=== PATIENT | male | born 1935 | race Caucasian/White ===

== ENCOUNTER 2018-01-27 15:30 | Emergency (ER) | payer MEDICARE, SELFPAY ==
[2018-01-27] VITALS (38 sets, daily range): BP systolic 124–192; BP diastolic 62–83; PULSE 56–86; RESP 11–92; TEMP 36.8–37.1; O2SAT 91–98
[2018-01-27 16:31] LABS: Abs Immature Grans 0.01 k/cumm (0.0-0.09); Absolute Basophil Count 0.01 k/cumm (0.0-0.2); Absolute Eosinophil Count 0.16 k/cumm (0.0-0.7); Absolute Lymphocyte Count 1.25 k/cumm (1.2-3.4); Absolute Monocyte Count 0.83 k/cumm (0.11-0.7); Absolute Neutrophil Count 4.03 k/cumm (1.2-6.7); Basophils % 0.2; Eosinophils % 2.5; HCT 45.8 % (40.0-50.0); HGB 15.1 g/dL (13.5-17.5); Immature Grans % 0.2; Lymphocytes % 19.9; Mean Corpuscular Hemoglobin 30.6 pg (27.0-33.0); Mean Corpuscular Volume 92.7 fL (80-95); Mean Platelet Volume 11.4 fL (8.0-11.0); Monocytes % 13.2; Platelet Count 162 x1000/uL (130-400); RBC 4.94 m/cumm (4.50-6.00); RBC Distribution Width 12.7 % (11.8-14.1); White Blood Cell Count 6.29 k/cumm (4.4-10.8)
[2018-01-27 16:47] LABS: ALT 30 U/L (12-78); AST 23 U/L (15-37); Albumin 3.5 g/dL (3.4-5.0); Alkaline Phosphatase 84 U/L (46-116); Anion Gap 6.7 mmol/L (3-11); BUN 26 mg/dL (7-18); Bilirubin, Direct 0.09 mg/dL (0.00-0.20); Bilirubin, Total 0.4 mg/dL (0.2-1.0); CO2 30.3 mmol/L (21.0-32.0); CREATININE 1.32 mg/dL (0.70-1.30); Calcium 9.6 mg/dL (8.5-10.1); Chloride 105 mmol/L (98-107); Estimated GFR 52.06 (mL/min/1.73m2); Glucose 92 mg/dL (70-100); Magnesium 2.1 mg/dL (1.8-2.4); Potassium 3.9 mmol/L (3.5-5.1); Sodium 142 mmol/L (136-145); TSH (W/Ref FT4) 1.67 uIU/mL (0.358-3.74); Total Protein 6.9 g/dL (6.4-8.2); Troponin I 0.02 ng/mL (0.00-0.06)
--- NOTE | 2018-01-27 16:57 | W.ED.GENAD ---
Discharge Plan Disposition Patient Disposition: HOME Discharge Details Chief Complaint: AMS/LOC Clinical Impression: Acute confusion, Ambulatory dysfunction, Elevated blood pressure reading Primary Care Provider: Chau Arshad ED Provider: González Rosenthal Home Meds and New Rx's Prescriptions: Continue amoxicillin 500 mg Capsule See Label Instructions .ROUTE .COMPLEX RF: 0 aspirin 81 mg Tablet,Delayed Release (Dr/Ec) 81 mg PO DAILY RF: 0 New Chapter 5lx 1 tab PO DAILY RF: 0 Prostate Advantage 1 tab PO DAILY RF: 0 atorvastatin 20 mg Tablet 20 mg PO DAILY RF: 0 polyethylene glycol 3350 [Miralax] 17 gram Powder In Packet See Label Instructions .ROUTE .COMPLEX RF: 0 sennosides-docusate sodium [Senna with Docusate Sodium] 8.6-50 mg Tablet 1 tab PO DAILY RF: 0 triamcinolone acetonide 0.1 % Cream 1 applic TOPICAL BID RF: 0 fluticasone 50 mcg/actuation [place],Suspension 1 spray INTRANASAL DAILY RF: 0 clotrimazole 1 % Cream 1 applic TOPICAL BID RF: 0 docusate sodium 100 mg Tablet 100 mg PO DAILY RF: 0 trospium 20 mg Tablet 20 mg PO DAILY RF: 0 solifenacin [Vesicare] 5 mg Tablet 5 mg PO DAILY RF: 0 Lactobacillus acidophilus [Probiotic Acidophilus] 1.5 mg (250 million cell) Capsule 1 tab PO PRN PRNRF: 0 New Chapter Blood Pressure 1 tab PO DAILY RF: 0 Discharge Instructions Instructions: Hypertension (ED) Additional Instructions: Please rest over the next few days. Please follow-up with your primary care physician tomorrow. Call the office. Be sure to mention your elevated blood pressure today. You may need changes in your medication regimen. Please follow-up with neurology. Call for next available appointment. Return to the ER for any worsening or new concerning symptoms. 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 ECG reviewed and interpreted by me: Normal sinus rhythm 68 bpm, normal axis, no STEMI, nondiagnostic. Patient does have h/o CVA. Consider TIA. Will CT head. Consider UTI. Will check UA. 19:20 --CT head interpreted by radiology: No acute intracranial abnormality. Moderate diffuse heterogenicity of the white matter attenuation consistent with chronic white matter ischemic change old left basal ganglia and left periventricular white matter infarcts - new since prior study 05/03/17. Patient reassessed and remained stable and asymptomatic. Requesting discharge. Patient ambulated briskly about the ED with walker. Patient has a walker without wheels at home. I think he would benefit from a walker with wheels to better ambulate. He is quite comfortable ambulating with his walker. Patient did have elevated BP here. I advised him to follow-up with PCP regarding this tomorrow. Will refer patient to neurology for follow-up. HPI General Mode of arrival: ambulatory. Date/Time Provider Initiated Documentation: 01/27/18 15:46. Limitations to Documentation: no limitations. Information obtained by: patient. HPI Narrative: 82-year-old male with history of CVA, presents with his from primary care physician office with chief complaint of confusion. Patient notes that he has had 3 episodes since yesterday evening where he is confused and has difficulty ambulating. He specifically has a shuffling gait and seems tipsy per . Episodes are severe and last minutes before resolving. He denies associated headache or chest pain. Related Data Home Medications Medication Instructions Recorded Confirmed Lactobacillus acidophilus 1 tab PO PRN PRN 01/27/18 01/27/18 [Probiotic Acidophilus] New Chapter 5lx 1 tab PO DAILY 01/27/18 New Chapter Blood Pressure 1 tab PO DAILY 01/27/18 01/27/18 Prostate Advantage 1 tab PO DAILY 01/27/18 01/27/18 amoxicillin See Label Instructions .ROUTE 01/27/18 01/27/18 .COMPLEX aspirin 81 mg PO DAILY 01/27/18 01/27/18 atorvastatin 20 mg PO DAILY 01/27/18 01/27/18 clotrimazole 1 applic TOPICAL BID 01/27/18 01/27/18 docusate sodium 100 mg PO DAILY 01/27/18 01/27/18 fluticasone 1 spray INTRANASAL DAILY 01/27/18 01/27/18 polyethylene glycol 3350 [Miralax] See Label Instructions .ROUTE 01/27/18 01/27/18 .COMPLEX sennosides-docusate sodium [Senna 1 tab PO DAILY 01/27/18 01/27/18 with Docusate Sodium] solifenacin [Vesicare] 5 mg PO DAILY 01/27/18 01/27/18 triamcinolone acetonide 1 applic TOPICAL BID 01/27/18 01/27/18 trospium 20 mg PO DAILY 01/27/18 01/27/18 Allergies Allergy/AdvReac Type Severity Reaction Status Date / Time clindamycin AdvReac Severe Unverified 01/27/18 15:40 General Stated Complaint: AMS/LOC DOUGIE: 2 Review of Systems Review of Systems All systems reviewed & are unremarkable except as noted in HPI and below Cardiovascular Denies chest pain and Denies dyspnea Respiratory Denies cough and Denies dyspnea Gastrointestinal Denies abdominal pain PFSH Medical History CVA (cerebral vascular accident) (Chronic) Social History Smoking/Tobacco Use Status: Never Surgical History Excision, Lesion (02/27/16) Exam Const General: cooperative and no acute distress HENMT Head: normocephalic and atraumatic Mouth: moist mucous membranes Eyes Conjunctivae: normal conjunctivae Sclera: normal sclerae EOM: EOM intact bilaterally Neck Neck: trachea midline Resp Auscultation: clear to auscultation bilaterally, no rales, no rhonchi and no wheezes Cardio Jugular venous pressure: no JVD Rate: regular rate and not tachycardic Rhythm: regular rhythm GI Palpation: soft, not firm, no guarding, no masses, not rigid and nontender Skin General skin exam: no rashes or lesions noted Neuro General: alert, awake, oriented x3 and tone normal Cranial Nerves: CN's II-XI intact bilaterally Speech: speech normal Motor: muscle tone normal throughout and strength 5/5 throughout Sensory Exam: no sensory deficits noted Coordination: [id number] test normal Extrem General: no edema Psych Appearance: grossly normal Mental Status: mental status grossly normal Speech and Movement: speech and movement normal Course Vital Signs Temperature 37.1 C 01/27/18 15:35 Pulse 68 01/27/18 15:35 Respiratory Rate 14 01/27/18 15:35 Blood Pressure 151/62 H 01/27/18 15:35 Pulse Oximetry 98 01/27/18 15:35 Temperature 37.1 C 01/27/18 15:35 Temperature Source Skin 01/27/18 15:35 Pulse 68 01/27/18 15:35 Respiratory Rate 14 01/27/18 15:35 Respiratory Effort 01/27/18 16:30 Blood Pressure 151/62 H 01/27/18 15:35 Pulse Oximetry 98 01/27/18 15:35 Oxygen Delivery Method Room Air 01/27/18 15:35 Oxygen Flow Rate 0 01/27/18 15:35 Pain Level 0 01/27/18 15:35 Lab/Test Results Lab/Test Results: Laboratory Tests Range/Units 01/27/18 01/27/18 15:45 15:45 WBC (4.4-10.8) k/cumm 6.29 RBC (4.50-6.00) m/cumm 4.94 Hgb (13.5-17.5) g/dL 15.1 Hct (40.0-50.0) % 45.8 MCV (80-95) fL 92.7 MCH (27.0-33.0) pg 30.6 MCHC (32.0-36.0) g/dL 33.0 RDW (11.8-14.1) % 12.7 Plt Count (130-400) x1000/uL 162 MPV (8.0-11.0) fL 11.4 H Immature Gran % 0.2 Neutrophils % 64.0 Lymphocytes % 19.9 Monocytes % 13.2 Eosinophils % 2.5 Basophils % 0.2 Absolute Neutrophils (1.2-6.7) k/cumm 4.03 Absolute Lymphocytes (1.2-3.4) k/cumm 1.25 Absolute Monocytes (0.11-0.7) k/cumm 0.83 H Absolute Eosinophils (0.0-0.7) k/cumm 0.16 Absolute Basophils (0.0-0.2) k/cumm 0.01 Sodium (136-145) mmol/L 142 Potassium (3.5-5.1) mmol/L 3.9 Chloride (98-107) mmol/L 105 Carbon Dioxide (21.0-32.0) mmol/L 30.3 Anion Gap (3-11) mmol/L 6.7 BUN (7-18) mg/dL 26 H Creatinine (0.70-1.30) mg/dL 1.32 H Estimated GFR/1.73 m2 (mL/min/1.73m2) 52.06 Glucose (70-100) mg/dL 92 Calcium (8.5-10.1) mg/dL 9.6 Magnesium (1.8-2.4) mg/dL 2.1 Total Bilirubin (0.2-1.0) mg/dL 0.4 Conjugated Bilirubin (0.00-0.20) mg/dL 0.09 AST (15-37) U/L 23 ALT (12-78) U/L 30 Alkaline Phosphatase (46-116) U/L 84 Troponin I (0.00-0.06) ng/mL 0.02 Total Protein (6.4-8.2) g/dL 6.9 Albumin (3.4-5.0) g/dL 3.5 TSH (0.358-3.74) uIU/mL 1.67
--- NOTE | 2018-01-27 17:09 | DI.CT_ITS ---
SYMPTOM/DIAGNOSIS: CONFUSION, DIFFICULTY WALKING NONCONTRAST HEAD CT: A noncontrast cranial CT was performed. There is moderate generalized cerebral atrophy. There are patchy areas of decreased attenuation in periventricular white matter consistent with microvascular ischemic changes. There are new focal areas of decreased attenuation in the basal ganglia and left periventricular white matter since examination of 05/03/17 but the findings are consistent with remote infarct. No evidence of acute intracranial hemorrhage, mass effect or midline shift. The orbital and temporal bone structures appear intact. CONCLUSION: Cerebral atrophy. Chronic white matter changes and old lacunar infarcts. Please note that the lacunar infarcts however have occurred since previous CT of 05/03/17.
--- NOTE | 2018-01-27 17:09 | ED.GENADUL_ITS ---
Discharge Plan Disposition Patient Disposition: HOME Discharge Details Chief Complaint: AMS/LOC Clinical Impression: Acute confusion, Ambulatory dysfunction, Elevated blood pressure reading Primary Care Provider: Chau Arshad ED Provider: González Rosenthal Home Meds and New Rx's Prescriptions: Continue amoxicillin 500 mg Capsule See Label Instructions .ROUTE .COMPLEX RF: 0 aspirin 81 mg Tablet,Delayed Release (Dr/Ec) 81 mg PO DAILY RF: 0 New Chapter 5lx 1 tab PO DAILY RF: 0 Prostate Advantage 1 tab PO DAILY RF: 0 atorvastatin 20 mg Tablet 20 mg PO DAILY RF: 0 polyethylene glycol 3350 [Miralax] 17 gram Powder In Packet See Label Instructions .ROUTE .COMPLEX RF: 0 sennosides-docusate sodium [Senna with Docusate Sodium] 8.6-50 mg Tablet 1 tab PO DAILY RF: 0 triamcinolone acetonide 0.1 % Cream 1 applic TOPICAL BID RF: 0 fluticasone 50 mcg/actuation [place],Suspension 1 spray INTRANASAL DAILY RF: 0 clotrimazole 1 % Cream 1 applic TOPICAL BID RF: 0 docusate sodium 100 mg Tablet 100 mg PO DAILY RF: 0 trospium 20 mg Tablet 20 mg PO DAILY RF: 0 solifenacin [Vesicare] 5 mg Tablet 5 mg PO DAILY RF: 0 Lactobacillus acidophilus [Probiotic Acidophilus] 1.5 mg (250 million cell) Capsule 1 tab PO PRN PRNRF: 0 New Chapter Blood Pressure 1 tab PO DAILY RF: 0 Discharge Instructions Instructions: Hypertension (ED) Additional Instructions: Please rest over the next few days. Please follow-up with your primary care physician tomorrow. Call the office. Be sure to mention your elevated blood pressure today. You may need changes in your medication regimen. Please follow-up with neurology. Call for next available appointment. Return to the ER for any worsening or new concerning symptoms. 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 ECG reviewed and interpreted by me: Normal sinus rhythm 68 bpm, normal axis, no STEMI, nondiagnostic. Patient does have h/o CVA. Consider TIA. Will CT head. Consider UTI. Will check UA. 19:20 --CT head interpreted by radiology: No acute intracranial abnormality. Moderate diffuse heterogenicity of the white matter attenuation consistent with chronic white matter ischemic change old left basal ganglia and left periventricular white matter infarcts - new since prior study 05/03/17. Patient reassessed and remained stable and asymptomatic. Requesting discharge. Patient ambulated briskly about the ED with walker. Patient has a walker without wheels at home. I think he would benefit from a walker with wheels to better ambulate. He is quite comfortable ambulating with his walker. Patient did have elevated BP here. I advised him to follow-up with PCP regarding this tomorrow. Will refer patient to neurology for follow-up. HPI General Mode of arrival: ambulatory . Date/Time Provider Initiated Documentation: 01/27/18 15:46 . Limitations to Documentation: no limitations . Information obtained by: patient . HPI Narrative: 82-year-old male with history of CVA, presents with his from primary care physician office with chief complaint of confusion. Patient notes that he has had 3 episodes since yesterday evening where he is confused and has difficulty ambulating. He specifically has a shuffling gait and seems tipsy per . Episodes are severe and last minutes before resolving. He denies associated headache or chest pain. Related Data Home Medications Medication Instructions Recorded Confirmed Lactobacillus acidophilus 1 tab PO PRN PRN 01/27/18 01/27/18 [Probiotic Acidophilus] New Chapter 5lx 1 tab PO DAILY 01/27/18 New Chapter Blood Pressure 1 tab PO DAILY 01/27/18 01/27/18 Prostate Advantage 1 tab PO DAILY 01/27/18 01/27/18 amoxicillin See Label Instructions .ROUTE 01/27/18 01/27/18 .COMPLEX aspirin 81 mg PO DAILY 01/27/18 01/27/18 atorvastatin 20 mg PO DAILY 01/27/18 01/27/18 clotrimazole 1 applic TOPICAL BID 01/27/18 01/27/18 docusate sodium 100 mg PO DAILY 01/27/18 01/27/18 fluticasone 1 spray INTRANASAL DAILY 01/27/18 01/27/18 polyethylene glycol 3350 [Miralax] See Label Instructions .ROUTE 01/27/18 .COMPLEX sennosides-docusate sodium [Senna 1 tab PO DAILY 01/27/18 01/27/18 with Docusate Sodium] solifenacin [Vesicare] 5 mg PO DAILY 01/27/18 01/27/18 triamcinolone acetonide 1 applic TOPICAL BID 01/27/18 01/27/18 trospium 20 mg PO DAILY 01/27/18 01/27/18 Allergies Allergy/AdvReac Type Severity Reaction Status Date / Time clindamycin AdvReac Severe Unverified 01/27/18 15:40 General Stated Complaint: AMS/LOC DOUGIE: 2 Review of Systems Review of Systems All systems reviewed & are unremarkable except as noted in HPI and below Cardiovascular Denies chest pain and Denies dyspnea Respiratory Denies cough and Denies dyspnea Gastrointestinal Denies abdominal pain PFSH Medical History CVA (cerebral vascular accident) (Chronic) Social History Smoking/Tobacco Use Status: Never Surgical History Excision, Lesion (02/27/16) Exam Const General: cooperative and no acute distress HENMT Head: normocephalic and atraumatic Mouth: moist mucous membranes Eyes Conjunctivae: normal conjunctivae Sclera: normal sclerae EOM: EOM intact bilaterally Neck Neck: trachea midline Resp Auscultation: clear to auscultation bilaterally, no rales, no rhonchi and no wheezes Cardio Jugular venous pressure: no JVD Rate: regular rate and not tachycardic Rhythm: regular rhythm GI Palpation: soft, not firm, no guarding, no masses, not rigid and nontender Skin General skin exam: no rashes or lesions noted Neuro General: alert, awake, oriented x3 and tone normal Cranial Nerves: CN's II-XI intact bilaterally Speech: speech normal Motor: muscle tone normal throughout and strength 5/5 throughout Sensory Exam: no sensory deficits noted Coordination: [id number] test normal Extrem General: no edema Psych Appearance: grossly normal Mental Status: mental status grossly normal Speech and Movement: speech and movement normal Course Vital Signs Temperature 37.1 C 01/27/18 15:35 Pulse 68 01/27/18 15:35 Respiratory Rate 14 01/27/18 15:35 Blood Pressure 151/62 H 01/27/18 15:35 Pulse Oximetry 98 01/27/18 15:35 Temperature 37.1 C 01/27/18 15:35 Temperature Source Skin 01/27/18 15:35 Pulse 68 01/27/18 15:35 Respiratory Rate 14 01/27/18 15:35 Respiratory Effort 01/27/18 16:30 Blood Pressure 151/62 H 01/27/18 15:35 Pulse Oximetry 98 01/27/18 15:35 Oxygen Delivery Method Room Air 01/27/18 15:35 Oxygen Flow Rate 0 01/27/18 15:35 Pain Level 0 01/27/18 15:35 Lab/Test Results Lab/Test Results: Laboratory Tests Range/Units 01/27/18 01/27/18 15:45 15:45 WBC (4.4-10.8) k/cumm 6.29 RBC (4.50-6.00) m/cumm 4.94 Hgb (13.5-17.5) g/dL 15.1 Hct (40.0-50.0) % 45.8 MCV (80-95) fL 92.7 MCH (27.0-33.0) pg 30.6 MCHC (32.0-36.0) g/dL 33.0 RDW (11.8-14.1) % 12.7 Plt Count (130-400) x1000/uL 162 MPV (8.0-11.0) fL 11.4 H Immature Gran % 0.2 Neutrophils % 64.0 Lymphocytes % 19.9 Monocytes % 13.2 Eosinophils % 2.5 Basophils % 0.2 Absolute Neutrophils (1.2-6.7) k/cumm 4.03 Absolute Lymphocytes (1.2-3.4) k/cumm 1.25 Absolute Monocytes (0.11-0.7) k/cumm 0.83 H Absolute Eosinophils (0.0-0.7) k/cumm 0.16 Absolute Basophils (0.0-0.2) k/cumm 0.01 Sodium (136-145) mmol/L 142 Potassium (3.5-5.1) mmol/L 3.9 Chloride (98-107) mmol/L 105 Carbon Dioxide (21.0-32.0) mmol/L 30.3 Anion Gap (3-11) mmol/L 6.7 BUN (7-18) mg/dL 26 H Creatinine (0.70-1.30) mg/dL 1.32 H Estimated GFR/1.73 m2 (mL/min/1.73m2) 52.06 Glucose (70-100) mg/dL 92 Calcium (8.5-10.1) mg/dL 9.6 Magnesium (1.8-2.4) mg/dL 2.1 Total Bilirubin (0.2-1.0) mg/dL 0.4 Conjugated Bilirubin (0.00-0.20) mg/dL 0.09 AST (15-37) U/L 23 ALT (12-78) U/L 30 Alkaline Phosphatase (46-116) U/L 84 Troponin I (0.00-0.06) ng/mL 0.02 Total Protein (6.4-8.2) g/dL 6.9 Albumin (3.4-5.0) g/dL 3.5 TSH (0.358-3.74) uIU/mL 1.67
--- NOTE | 2018-01-27 17:44 | DI.VRAD_ITS ---
EXAM: CT Head Without Intravenous Contrast EXAM DATE/TIME: 01/27/2018 4:34 PM CLINICAL HISTORY: 82 years old, male; Signs and symptoms; Altered mental status/memory loss and walking, difficulty TECHNIQUE: Axial computed tomography images of the head/brain without intravenous contrast. Coronal and sagittal reformatted images were created and reviewed. COMPARISON: CT HEAD WITHOUT CONTRAST 05/03/2017 2:03 PM FINDINGS: Brain: Global cerebral atrophy consistent with patient's age.There is moderate diffuse heterogeneity of the white matter attenuation, consistent with chronic white matter ischemic changes. Old left basal ganglia and left periventricular white matter infarcts, new since the prior study. No intracranial hemorrhage. No mass effect. Ventricles: Normal. No ventriculomegaly. Bones/joints: Normal. No acute fracture. Sinuses: Normal as visualized. No acute sinusitis. Mastoid air cells: Normal as visualized. No mastoid effusion. Soft tissues: Normal. Vasculature: Atherosclerosis of the cavernous carotid and vertebral arteries. IMPRESSION: No acute intracranial abnormality. Dictated and Authenticated by: Modesto Valencia MD. Ordering:NIMISHA AUGUSTINE MD
[2018-01-27 18:01] LABS: Bilirubin Negative (Negative); Blood Negative (Negative); Clarity Clear; Glucose Negative (Negative); Ketones Negative (Negative); Leukocyte Esterase Negative (Negative); Nitrite Negative (Negative); Urobilinogen 0.2 EU/dL (Up TO 0.2)
--- NOTE | 2018-01-28 09:48 | PDOC.ERCMPRO ---
Care Management Progress Note 01/27-Dr. Homero Rosenthal requested assistance with a Neurology and PCP (Jeancarlos) f/u in a week or so for post stroke, dementia, concern for worsening confusion. Referral faxed to Neurology and C this am.
== END 2018-01-27 19:38 | disposition home or self-care (01) ==
PROVIDERS: Emergency Provider Student in an Organized Health Care Education/Training Program; PCP Internal Medicine
DX: R41.0 Disorientation, unspecified (principal); I69.953 Hemiplegia and hemiparesis following unspecified cerebrovascular disease affecting right non-dominant side; R03.0 Elevated blood-pressure reading, without diagnosis of hypertension; R26.89 Other abnormalities of gait and mobility
CPT/HCPCS: 36415; 80053; 80076; 99284; 70450; 81003; 83735; 84443; 84484; 85025

== ENCOUNTER 2018-02-04 02:54 | Outpatient (CLI) | payer MEDICARE, SELFPAY ==
--- NOTE | 2018-03-14 10:27 | ZIOP_ITS ---
ZIO PATCH REPORT DATE OF DICTATION March 14, [address] 14 days, February 04- February 18, 2018. INTERPRETATION Baseline rhythm sinus. Rare single PAC. 4 bursts of SVT, longest 7 beat duration, fastest 179 beats per minute. Occasional single PVC, 4.1% total beat. Rare couplet, rare triplet. 1 burst nonsustained ventricular tachycardia, 4 beat duration at 114 beats per minute. No bradycardia/block. 4 triggered events all during sinus rhythm, 76-89 beats per minute. 3 symptomatic episodes. Choked on pills and skipped irregular beats noted during sinus rhythm +/- sin gle PVC, 72-85 beats per minute. Heart rate sinus 73 beats per minute, range 54-117 beats per minute. Hever Goodwin M.D. QI/hannah T-03/14/2018
== END 2018-02-04 03:14 ==
PROVIDERS: PCP Internal Medicine; Visit Provider Internal Medicine
DX: G45.9 Transient cerebral ischemic attack, unspecified (principal); I47.1 Supraventricular tachycardia; I49.3 Ventricular premature depolarization
CPT/HCPCS: 93225

== ENCOUNTER → 2018-02-16 10:26 | Outpatient (BNVA) | payer MEDICARE, SELFPAY | PROVIDERS: PCP Internal Medicine; Referring Provider Internal Medicine; Visit Provider Nurse Practitioner Gerontology | DX: R35.1 Nocturia (principal); I10 Essential (primary) hypertension; R35.0 Frequency of micturition; R33.9 Retention of urine, unspecified | CPT/HCPCS: 51798; 99204; 99215 ==

== ENCOUNTER → 2018-02-17 14:08 | Outpatient (BNVA) | payer MEDICARE, SELFPAY | PROVIDERS: PCP Internal Medicine; Visit Provider Psychiatry & Neurology Neurology | DX: R41.82 Altered mental status, unspecified (principal); I44.1 Atrioventricular block, second degree; F01.50 Vascular dementia, unspecified severity, without behavioral disturbance, psychotic disturbance, mood disturbance, and anxiety; G62.9 Polyneuropathy, unspecified; I63.9 Cerebral infarction, unspecified; I10 Essential (primary) hypertension | CPT/HCPCS: 99205; 99215 ==

== ENCOUNTER 2018-02-17 15:53 | Outpatient (CLI) | payer MEDICARE, SELFPAY ==
[2018-02-17 19:08] LABS: Cholesterol 163 mg/dL (50-200); HDL Cholesterol 46 mg/dL (40-60); LDL CHOLESTEROL 96 mg/dL (<100); Triglyceride 131 mg/dL (30-150)
[2018-02-17 20:56] LABS: Hemoglobin A1C 5.8 % (4.5-6.2)
== END 2018-02-17 16:13 ==
PROVIDERS: PCP Internal Medicine; Visit Provider Psychiatry & Neurology Neurology
DX: R73.9 Hyperglycemia, unspecified (principal); I63.9 Cerebral infarction, unspecified; R41.82 Altered mental status, unspecified; I44.1 Atrioventricular block, second degree; F01.50 Vascular dementia, unspecified severity, without behavioral disturbance, psychotic disturbance, mood disturbance, and anxiety; G62.9 Polyneuropathy, unspecified; I10 Essential (primary) hypertension
CPT/HCPCS: 36415; 80061; 83721; 99205; 99215; 83036

== ENCOUNTER 2018-03-04 00:30 | Outpatient (CLI) | payer MEDICARE, SELFPAY ==
--- NOTE | 2018-03-04 10:30 | MERGE_ITS ---
*[facility]* *[facility]* [address] [place] [address] Date of study: 03/04/2018 Transthoracic Echocardiography M-mode, complete 2D, complete spectral Doppler, and color Doppler *STUDY CONCLUSIONS* Impressions: Mildly decreased LVEF. Elevated LV filling pressure. No cardiac source of emboli was identified, however, patient declined use of echo contrast. Summary: 1. Left ventricle: The cavity size was normal. Wall thickness was increased in a pattern of mild LVH. Systolic function was mildly reduced. The estimated ejection fraction was 45-50%. Mild diffuse hypokinesis with regional variations. Diastolic parameters suggest increased LV filling pressures. 2. Aortic valve: Mildly calcified annulus. Trileaflet; mildly thickened, mildly calcified leaflets. There was mild to moderate regurgitation. 3. Mitral valve: There was mild regurgitation. 4. Right ventricle: The cavity size was normal. Wall thickness was normal. Systolic function was normal. *PATIENT PRESENTATION* Height: 170.2cm ((67in) ) S/D Pressure: 160 / 81 Weight: 81.6kg ((179.6lb) ) BSA: 1.98m^2 Test start time: 10:30 AM. Test stop time: 11:30 AM. PERFORMING Unknown PERFORMING [facility] ORDERING Jane Robert REFERRING Jane Robert SOCIAL MEDIA STRATEGIST Sara Villareal RT (R)(CT), [facility] *PROCEDURE DATA* Procedure information: The patient was identified by two identifiers. This study was interpreted by [facility]. Pertinent images and digital data are archived for permanent storage and are available for subsequent review. No prior study was available for comparison. Study status: Routine. Transthoracic echocardiography. M-mode, complete 2D, complete spectral Doppler, and color Doppler. A Transthoracic Echocardiogram was performed. Scanning was performed from the parasternal, apical, subcostal, and suprasternal notch acoustic windows. Images were obtained using an [id number] cardiac ultrasound machine. Image quality was fair. Study completion: The patient tolerated the procedure well. History: PMH: Stroke, hyperglycemia, cerebral infarction, *CARDIAC ANATOMY* Left ventricle: The cavity size was normal. Wall thickness was increased in a pattern of mild LVH. Systolic function was mildly reduced. The estimated ejection fraction was 45-50%. Mild diffuse hypokinesis with regional variations. Diastolic parameters suggest increased LV filling pressures. Aortic valve: Mildly calcified annulus. Trileaflet; mildly thickened, mildly calcified leaflets. Mobility was not restricted. Doppler: Transvalvular velocity was within the normal range. There was no stenosis. There was mild to moderate regurgitation. VTI ratio of LVOT to aortic valve: 0.65. Valve area (VTI): 2.5cm^2. Indexed valve area (VTI): 1.3cm^2/m^2. Peak velocity ratio of LVOT to aortic valve: 0.67. Valve area (Vmax): 2.6cm^2. Indexed valve area (Vmax): 1.3cm^2/m^2. Mean velocity ratio of LVOT to aortic valve: 0.58. Valve area (Vmean): 2.2cm^2. Indexed valve area (Vmean): 1.1cm^2/m^2. Mean gradient (S): 3.9mm Hg. Peak gradient (S): 6.6mm Hg. Aorta: Aortic root: The aortic root was normal in size. Ascending aorta: The ascending aorta was normal in size. Mitral valve: Mildly thickened leaflets. Mobility was not restricted. Doppler: Transvalvular velocity was within the normal range. There was no evidence for stenosis. There was mild regurgitation. Valve area by pressure half-time: 3cm^2. Indexed valve area by pressure half-time: 1.5cm^2/m^2. Left atrium: The atrium was at the upper limits of normal in size. Right ventricle: The cavity size was normal. Wall thickness was normal. Systolic function was normal. Pulmonic valve: Poorly visualized. Doppler: Transvalvular velocity was within the normal range. There was no evidence for stenosis. There was no significant regurgitation. Tricuspid valve: Structurally normal valve. Doppler: Transvalvular velocity was within the normal range. There was no evidence for stenosis. There was no significant regurgitation. Pulmonary artery: Poorly visualized. Pulmonary systolic pressure was within the normal range. Right atrium: The atrium was normal in size. Pericardium: There was no pericardial effusion. Systemic veins: Inferior vena cava: The vessel was patent and normal in size. The respirophasic diameter changes were in the normal range (greater than or equal to 50%), consistent with normal central venous pressure. Baseline ECG: Normal sinus rhythm. Measurements Left ventricle Value Reference LV ID, ED, PLAX 5.6 cm 3.5 - 6.0 LV ID, ES, PLAX (H) 4.5 cm 2.1 - 4.0 LV PW thickness, ED, PLAX 1.2 cm LV end-diastolic volume, 1-p A2C 93 ml LV ejection fraction, 1-p A2C 45 % LV end-diastolic volume, 1-p A4C 83 ml LV ejection fraction, 1-p A4C 54 % LV e', lateral 0.033 m/sec LV E/e', lateral 12 LV e', medial 0.024 m/sec LV E/e', medial 16 LV e', average 0.028 m/sec LV E/e', average 14 Ventricular septum Value Reference IVS thickness, ED, PLAX 1.0 cm LVOT Value Reference LVOT ID, A-P 2.2 cm LVOT area 3.8 cm^2 LVOT peak velocity, S 0.86 m/sec LVOT mean velocity, S 0.55 m/sec LVOT VTI, S 19.6 cm LVOT peak gradient, S 3 mm Hg LVOT mean gradient, S 1.4 mm Hg Stroke volume (SV), LVOT DP 75 ml Stroke index (SV/bsa), LVOT DP 38 ml/m^2 Aortic valve Value Reference Aortic valve peak velocity, S 1.3 m/sec Aortic valve mean velocity, S 0.94 m/sec Aortic valve VTI, S 30.0 cm Aortic mean gradient, S 3.9 mm Hg Aortic peak gradient, S 6.6 mm Hg VTI ratio, LVOT/AV 0.65 Aortic valve area, VTI 2.5 cm^2 Velocity ratio, peak, LVOT/AV 0.67 Aortic valve area, peak velocity 2.6 cm^2 Velocity ratio, mean, LVOT/AV 0.58 Aortic valve area, mean velocity 2.2 cm^2 Aortic valve area/bsa, mean velocity 1.1 cm^2/m^2 Aorta Value Reference Aortic root ID, ED 3.3 cm Ascending aorta ID, A-P, S 3.1 cm Left atrium Value Reference LA ID, A-P, ES 2.9 cm LA ID/bsa, A-P 1.5 cm/m^2 <=2.2 LA area, ES, A4C 19.8 cm^2 8.8 - 23.4 LA area, ES, A2C 19 cm^2 LA volume/bsa, ES, 1-p A4C 35 ml/m^2 LA volume, ES, 2-p 57 ml LA volume/bsa, ES, 2-p 29 ml/m^2 LA/aortic root ratio 0.88 Mitral valve Value Reference Mitral E-wave peak velocity 0.39 m/sec Mitral A-wave peak velocity 0.92 m/sec Mitral deceleration time (H) 255 ms 150 - 230 Mitral pressure half-time 74 ms Mitral E/A ratio, peak 0.43 Mitral valve area, PHT, DP 3 cm^2 Pulmonary veins Value Reference Pulmonary vein peak velocity, S 0.5 m/sec Pulmonary vein peak velocity, D 0.24 m/sec Pulmonary vein velocity ratio, peak, 2.1 S/D Pulmonary vein A-wave reversal peak 0.46 m/sec velocity Pulmonary arteries Value Reference PA pressure, S, DP 25 mm Hg <=30 Tricuspid valve Value Reference Tricuspid regurg peak velocity 1.9 m/sec Tricuspid peak RV-RA gradient 14.7 mm Hg Right atrium Value Reference RA area, ES, A4C 14 cm^2 8.3 - 19.5 Systemic veins Value Reference Estimated CVP 10 mm Hg Right ventricle Value Reference RV pressure, S, DP 25 mm Hg <=30 Legend: (L) and (H) ezekiel values outside specified reference range. I have personally reviewed the images and have reviewed and edited the reported findings. Electronically signed by Iram Espinosa 03/06/2018 11:20
== END 2018-03-04 00:50 ==
PROVIDERS: PCP Internal Medicine; Visit Provider Psychiatry & Neurology Neurology
DX: I63.9 Cerebral infarction, unspecified (principal); R73.9 Hyperglycemia, unspecified; I34.0 Nonrheumatic mitral (valve) insufficiency; I35.1 Nonrheumatic aortic (valve) insufficiency
CPT/HCPCS: 93306

== ENCOUNTER 2018-03-14 09:15 | Outpatient (CLI) | payer MEDICARE, SELFPAY | END 2018-03-14 09:35 | PROVIDERS: PCP Internal Medicine; Referring Provider Internal Medicine; Visit Provider Internal Medicine Interventional Cardiology | DX: G45.9 Transient cerebral ischemic attack, unspecified (principal); I47.1 Supraventricular tachycardia; I49.3 Ventricular premature depolarization | CPT/HCPCS: 0298T ==

== ENCOUNTER → 2018-03-22 13:39 | Outpatient (BNVA) | payer MEDICARE, SELFPAY | PROVIDERS: PCP Internal Medicine; Visit Provider Psychiatry & Neurology Neurology | DX: R41.0 Disorientation, unspecified (principal); I61.9 Nontraumatic intracerebral hemorrhage, unspecified; F01.50 Vascular dementia, unspecified severity, without behavioral disturbance, psychotic disturbance, mood disturbance, and anxiety; R41.3 Other amnesia; R93.1 Abnormal findings on diagnostic imaging of heart and coronary circulation; I10 Essential (primary) hypertension | CPT/HCPCS: 99214 ==

== ENCOUNTER → 2018-04-26 11:03 | Outpatient (BNVA) | payer MEDICARE, SELFPAY | PROVIDERS: PCP Internal Medicine; Visit Provider Urology | DX: R35.1 Nocturia (principal); I10 Essential (primary) hypertension | CPT/HCPCS: 99213 ==

== ENCOUNTER 2018-08-18 16:40 | Emergency (ER) | payer MEDICARE, SELFPAY ==
[2018-08-18 16:47] VITALS: BP 149/72; PULSE 69; RESP 16; TEMP 36.9; O2SAT 97
--- NOTE | 2018-08-18 17:22 | DI.RAD_ITS ---
SYMPTOM/DIAGNOSIS: LEFT CHEST PRESSURE PA AND LATERAL CHEST: 08/18/18 The heart is not enlarged. The lungs are grossly clear. No pleural effusion seen. CONCLUSION: No evidence of acute disease.
[2018-08-18 17:32] LABS: Abs Immature Grans 0.01 k/cumm (0.0-0.09); Absolute Basophil Count 0.01 k/cumm (0.0-0.2); Absolute Eosinophil Count 0.17 k/cumm (0.0-0.7); Absolute Lymphocyte Count 1.32 k/cumm (1.2-3.4); Absolute Monocyte Count 0.82 k/cumm (0.11-0.7); Absolute Neutrophil Count 4.85 k/cumm (1.2-6.7); Basophils % 0.1; Eosinophils % 2.4; HCT 45.6 % (40.0-50.0); HGB 15.5 g/dL (13.5-17.5); Immature Grans % 0.1; Lymphocytes % 18.4; Mean Corpuscular Hemoglobin 30.1 pg (27.0-33.0); Mean Corpuscular Volume 88.5 fL (80-95); Mean Platelet Volume 10.7 fL (8.0-11.0); Monocytes % 11.4; Neutrophils % 67.6; Platelet Count 184 x1000/uL (130-400); RBC 5.15 m/cumm (4.50-6.00); RBC Distribution Width 12.1 % (11.8-14.1); White Blood Cell Count 7.18 k/cumm (4.4-10.8)
[2018-08-18 17:46] LABS: PTT Activated 26.6 sec (21.0-31.4)
[2018-08-18 17:49] LABS: ALT 37 U/L (12-78); AST 28 U/L (15-37); Albumin 3.9 g/dL (3.4-5.0); Alkaline Phosphatase 85 U/L (46-116); Anion Gap 9.8 mmol/L (3-11); BUN 31 mg/dL (7-18); Bilirubin, Total 0.6 mg/dL (0.2-1.0); CO2 27.2 mmol/L (21.0-32.0); CREATININE 1.26 mg/dL (0.70-1.30); Calcium 10.1 mg/dL (8.5-10.1); Chloride 95 mmol/L (98-107); Estimated GFR 54.79 (mL/min/1.73m2); Glucose 106 mg/dL (70-100); Potassium 3.4 mmol/L (3.5-5.1); Sodium 132 mmol/L (136-145); Total Protein 7.4 g/dL (6.4-8.2); Troponin I 0.03 ng/mL (0.00-0.06)
[2018-08-18 17:54] LABS: NT-proBNP 160 pg/mL
[2018-08-18 18:01] LABS: D-Dimer 1525 ng/mlFEU (<500)
--- NOTE | 2018-08-18 18:23 | DI.VRAD_ITS ---
EXAM: XR Chest, 2 Views EXAM DATE/TIME: 08/18/2018 6:04 PM CLINICAL HISTORY: 83 years old, male; Pain; Other: Left chest pressure TECHNIQUE: Imaging protocol: XR of the chest, 2 views. COMPARISON: CR CHEST 2 VIEWS PA,LAT 05/03/2017 2:04 PM FINDINGS: Lungs: There is mild bibasilar atelectasis. Pleural space: Unremarkable. No pleural effusion. No pneumothorax. Heart/Mediastinum: Unremarkable. No cardiomegaly. Bones/joints: Degenerative changes of the thoracic spine without acute osseous abnormality. IMPRESSION: There is mild bibasilar atelectasis. Otherwise unremarkable chest Dictated and Authenticated by: Mushtaq Maldonado MD. Ordering:TAMMIE Balbuena MD
[2018-08-18] MEDS: Omnipaque 350 MG/ML 100 ML BTL IJ (19:27)
--- NOTE | 2018-08-18 19:35 | DI.CT_ITS ---
SYMPTOM/DIAGNOSIS: ELEVATED DIMER, CHEST PAIN, R/O PE CTA CHEST: 08/18 CT angiography was performed with multi slice acquisition and multi planar and 3D reconstruction. CT angiography of the chest was performed with a bolus infusion of 100 cc Omnipaque 350. There is significant motion artifact on this study. The lungs are grossly clear. No pulmonary embolus identified. The more distal vessels are not ideally visualized due to motion artifact. No thoracic aortic aneurysm or dissection. No mediastinal or hilar adenopathy, No pleural effusion or pneumothorax. The visualized portions of the liver, spleen and pancreas were normal. Note is made of multiple gallstones. There is presumed cyst of the upper pole of the left kidney. CONCLUSION: No evidence of pulmonary embolic disease. Note is made of cholelithiasis and a presumed left renal cyst.
--- NOTE | 2018-08-18 19:46 | DI.VRAD_ITS ---
EXAM: CT Angiography Chest With Contrast EXAM DATE/TIME: 08/18/2018 6:06 PM CLINICAL HISTORY: 83 years old, male; Pain and abnormal findings; Abnormal diagnostic tests; Elevated d-dimer; Type not specified; Patient HX: Chest pain, elevated d dimer TECHNIQUE: Imaging protocol: Axial computed tomographic angiography images of the chest with intravenous contrast using CT angiography protocol. Coronal and sagittal reformatted images were created and reviewed. 3D rendering: MIP reconstructed images were created and reviewed. Radiation optimization: All CT scans at this facility use at least one of these dose optimization techniques: automated exposure control; mA and/or kV adjustment per patient size (includes targeted exams where dose is matched to clinical indication); or iterative reconstruction. Contrast material: OMNIPAQUE 350; Contrast volume: 73 ml; Contrast route: IV; COMPARISON: CR XR CHEST 2V PA LATERAL 08/18/2018 6:02 PM Respiratory motion degrades detail. FINDINGS: Pulmonary arteries: Evaluation of the pulmonary arteries is limited by motion artifact. However, no definite filling defects suspicious for pulmonary emboli in the main, and central right and left pulmonary arteies are identified. Segmental arteries can not be optimally evaluated. Aorta: Aorta demonstrates moderate atherosclerotic calcification. Lungs: Normal. No consolidation. No masses. Pleural space: Normal. No pneumothorax. No pleural effusion. Heart: Normal. No cardiomegaly. No pericardial effusion. Gallbladder and bile ducts: Cholelithiasis Kidneys and ureters: Large cyst upper pole left kidney Lymph nodes: Unremarkable. No enlarged lymph nodes. Bones/joints: Degenerative changes of the thoracic spine without acute osseous abnormality. Soft tissues: Unremarkable. IMPRESSION: 1. Respiratory motion degrades detail. No definite filling defects suspicious for PE identified. 2. Cholelithiasis. 3. Large cyst partially visualized probably originating from the upper pole left kidney Dictated and Authenticated by: Mushtaq Maldonado MD. Ordering:TAMMIE Balbuena MD
--- NOTE | 2018-08-18 20:30 | W.ED.GENAD ---
Discharge Plan Disposition Patient Disposition: HOME Condition: Good Discharge Details Chief Complaint: Chest Pain Clinical Impression: Chest pressure Primary Care Provider: Chau Arshad ED Provider: Sree Wiley Home Meds and New Rx's Prescriptions: No Action chlorthalidone 25 mg tablet 12.5 mg PO DAILY RF: 0 clopidogrel [Plavix] 75 mg tablet 75 mg PO DAILY Qty: 30 RF: 11 tamsulosin [Flomax] 0.4 mg capsule 0.8 mg PO DAILY Qty: 180 RF: 4 Prostate Advantage 1 tab PO DAILY RF: 0 polyethylene glycol 3350 [Miralax] 17 gram Powder In Packet See Rx Instructions .ROUTE .COMPLEX RF: 0 triamcinolone acetonide 0.1 % Cream 1 applic TOPICAL BID RF: 0 clotrimazole 1 % Cream 1 applic TOPICAL BID RF: 0 New Chapter Blood Pressure 1 tab PO DAILY RF: 0 atorvastatin 20 mg tablet 40 mg PO DAILY RF: 0 Discharge Instructions Instructions: Chest Pain (ED) Additional Instructions: Your repeat troponins and repeat EKGs are consistent and unchanged, with no suggestions of a heart attack at this time. Please follow-up as soon as possible with Dr. Arshad. If you notice any worsening of your symptoms, or any new symptoms such as vomiting, diarrhea, fever, chills, shortness of breath, chest pain, numbness, weakness, or fainting , please return immediately to the emergency department for reevaluation. Please follow up with your primary care provider as soon as possible for reassessment and reevaluation. As always, it was a pleasure participating in your medical care today. Referrals: hCau Arshad MD [Primary Care Provider] - Discharge Data Discharge Date/Time-TO BE ENTERED AT DEPARTURE: 08/18/18 21:43 Medical Decision Making Is a pleasant 83-year-old male who presents with 2 days of mild chest pressure, nonexertional in nature, no associated pleuritic chest pain, arm neck or shoulder pain. No history of cardiac disease. PCP did notice some subtle EKG changes in the inferior leads, recommended transfer to the ER for cardiac evaluation. Exam demonstrates notably reassuring vital signs, the patient is very dismissive of his current symptoms. Differential included ACS, PE, or musculoskeletal or chronic pulmonary etiology. D-dimer was ordered, ACS evaluation was started. Laboratory work-up demonstrates no significant white count or signs of anemia. Troponin x2 is within normal limits. Renal function stable. D-dimer is notably elevated, and so CT angiogram was ordered. CTA demonstrates no acute process, there is evidence of small gallstones, kidney cyst, but no other significant pulmonary abnormality per virtual radiology. The patient continues to feel well, serial EKGs demonstrate small Q waves in the inferior leads, but no significant ST elevations or depressions, no evidence of STEMI. With serial troponins being benign, serial EKGs being consistent, and unchanged from prior EKG from 01/27/2018, I do not feel that the patient is having an acute episode of unstable angina. However because of his risk factors, I do feel that potential admission for serial troponins versus prompt outpatient stress test is reasonable. Unfortunately no telemetry beds are available here at the hospital at this time. I did discuss transfer versus admission versus close follow-up for stress test on an outpatient basis at this time through shared decision making process patient understanding the risks is requesting to go home to follow-up promptly with Dr. Arsahd his PCP. I offered to set up an outpatient stress test the patient however he requests that we hold off and would like to see and reassessed by Dr. Arshad first. I do feel that this is reasonable. With a benign work-up, and no current clinical evidence of severe PE, ACS, pneumonia, or other life-threatening abnormality requiring immediate intervention or admission patient will be discharged home respecting his wishes. We discussed the importance of prompt follow-up, and prompt return if he has any worsening or increase in his symptoms. I have extensively reviewed the treatment plan and discharge instructions with the patient and their family. I have addressed all patient concerns at this time. The patient and family was made aware of what symptoms to monitor for that would warrant a return to the emergency department. Discussed the plan with the patient and family, they demonstrate verbal understanding and agreement with our assessment and plan at this time. EKG 16: 48 Rate 74, intervals normal, sinus rhythm, no significant ST elevations or depressions. Q waves noted in lead III and aVF, no inverted T waves. EKG from 01/27/2018 demonstrates no changes or abnormalities aside for slight increase in Q wave in aVF. Otherwise EKGs are completely unchanged EKG 20: 09 Rate 71, intervals normal, sinus rhythm, no significant ST elevations or depressions, no T wave inversions. Consistent Q waves in lead III and aVF. No changes. CLINICAL HISTORY: 83 years old, male; Pain and abnormal findings; Abnormal diagnostic tests; Elevated d-dimer; Type not specified; Patient HX: Chest pain, elevated d dimer TECHNIQUE: Imaging protocol: Axial computed tomographic angiography images of the chest with intravenous contrast using CT angiography protocol. Coronal and sagittal reformatted images were created and reviewed. 3D rendering: MIP reconstructed images were created and reviewed. Radiation optimization: All CT scans at this facility use at least one of these dose optimization techniques: automated exposure control; mA and/or kV adjustment per patient size (includes targeted exams where dose is matched to clinical indication); or iterative reconstruction. Contrast material: OMNIPAQUE 350; Contrast volume: 73 ml; Contrast route: IV; COMPARISON: CR XR CHEST 2V PA LATERAL 08/18/2018 6:02 PM Respiratory motion degrades detail. FINDINGS: Pulmonary arteries: Evaluation of the pulmonary arteries is limited by motion artifact. However, no definite filling defects suspicious for pulmonary emboli in the main, and central right and left pulmonary arteies are identified. Segmental arteries can not be optimally evaluated. Aorta: Aorta demonstrates moderate atherosclerotic calcification. Lungs: Normal. No consolidation. No masses. Pleural space: Normal. No pneumothorax. No pleural effusion. Heart: Normal. No cardiomegaly. No pericardial effusion. Gallbladder and bile ducts: Cholelithiasis Kidneys and ureters: Large cyst upper pole left kidney Lymph nodes: Unremarkable. No enlarged lymph nodes. Bones/joints: Degenerative changes of the thoracic spine without acute osseous abnormality. Soft tissues: Unremarkable. IMPRESSION: 1. Respiratory motion degrades detail. No definite filling defects suspicious for PE identified. 2. Cholelithiasis. 3. Large cyst partially visualized probably originating from the upper pole left kidney Dictated and Authenticated by: Mushtaq Maldonado MD. Ordering:TAMMIE Balbuena MD HPI General Date/Time Provider Initiated Documentation: 08/18/18 16:55. HPI Narrative: This is an 83-year-old male with a past medical history of high cholesterol, previous stroke, carotid endarterectomy on Plavix, with no history of myocardial infarction or STEMI, who presents today after being sent by his PCP for concern for cardiac etiology of chest pressure. Patient states that for the last 2 days he has had a mild pressure-like sensation in his left chest, it is nonexertional, unrelated to activity, rest or movement. He describes it is very mild in nature and nonsevere. He denies any significant cough, severe pleuritic chest pain. He denies any history of blood clots or PE, long trips, recent surgeries or procedures. He denies any radiation to his arm, neck, or back. He denies any current smoking history, or other complaints. Denies any other modifying factors. Of note his PCP was concerned that there were some subtle EKG changes in the inferior leads per nursing call. No other complaints at this time. Additionally the patient is on daily Plavix. Related Data Home Medications Medication Instructions Recorded Confirmed New Chapter Blood Pressure 1 tab PO DAILY 01/27/18 03/22/18 Prostate Advantage 1 tab PO DAILY 01/27/18 03/22/18 clotrimazole 1 applic TOPICAL BID 01/27/18 08/18/18 polyethylene glycol 3350 [Miralax] See Rx Instructions .ROUTE .COMPLEX 01/27/18 08/18/18 triamcinolone acetonide 1 applic TOPICAL BID 01/27/18 08/18/18 chlorthalidone 25 mg tablet 12.5 mg PO DAILY tab 02/16/18 08/18/18 clopidogrel 75 mg tablet 75 mg PO DAILY #30 tab 02/17/18 08/18/18 atorvastatin 20 mg tablet 40 mg PO DAILY tab 03/22/18 08/18/18 tamsulosin 0.4 mg capsule 0.8 mg PO DAILY #180 cap 07/28/18 08/18/18 Previous Rx's Medication Instructions Recorded clopidogrel 75 mg tablet 75 mg PO DAILY #30 tab 02/17/18 tamsulosin 0.4 mg capsule 0.8 mg PO DAILY #180 cap 07/28/18 Allergies Allergy/AdvReac Type Severity Reaction Status Date / Time solifenacin [From Vesicare] Allergy TIA Verified 08/18/18 16:51 clindamycin AdvReac Severe Unverified 08/18/18 16:51 General Stated Complaint: Chest Pain DOUGIE: 3 Review of Systems Review of Systems All systems reviewed & are unremarkable except as noted in HPI and below PFSH Social History Smoking/Tobacco Use Status: Former Tobacco Use Quit Date: 04/12/69 Alcohol Intake: never Drug use: Never Substance use type: does not use Household members: spouse 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 3.ENT: Atraumatic external nose and ears. Moist MM. Neck: Symmetric, trachea midline, No thyromegaly. 4.CVS: +S1/S2, No murmurs or gallops. Peripheral pulses 2+ and equal in all extremities. Brisk capillary refill in all extremities. No reproducible chest wall tenderness on palpation. 5.RESP: Unlabored respiratory effort. Clear to auscultation bilaterally. No wheezes rales or rhonchi 6.GI: Soft, Nontender/Nondistended, No hepatosplenomegaly. No guarding or rebound. 7.MSK: Normocephalic/Atraumatic, Extremities w/o deformity or ttp No cyanosis or clubbing, Normal movement of all extremities. No calf tenderness or significant pitting edema. 8.Skin: Warm, Dry. No rashes or lesions. 9.Neuro: commanding officer traffic division II-XII grossly intact. Sensation grossly intact, no focal neurologic deficits. 10.Psych: (AAO) x3. Appropriate mood and affect Course Vital Signs Temperature 36.9 C 08/18/18 16:47 Pulse 69 08/18/18 16:47 Respiratory Rate 16 08/18/18 16:47 Blood Pressure 149/72 H 08/18/18 16:47 Pulse Oximetry 97 08/18/18 16:47 Temperature 36.9 C 08/18/18 16:47 Temperature Source Skin 08/18/18 16:47 Pulse 69 08/18/18 16:47 Respiratory Rate 16 08/18/18 16:47 Respiratory Effort Non-Labored 08/18/18 16:49 Blood Pressure 149/72 H 08/18/18 16:47 Pulse Oximetry 97 08/18/18 16:47 Pain Level 0 08/18/18 16:47 Lab/Test Results Lab/Test Results: Laboratory Tests Range/Units 08/18/18 08/18/18 08/18/18 17:10 17:10 17:10 WBC (4.4-10.8) k/cumm 7.18 RBC (4.50-6.00) m/cumm 5.15 Hgb (13.5-17.5) g/dL 15.5 Hct (40.0-50.0) % 45.6 MCV (80-95) fL 88.5 MCH (27.0-33.0) pg 30.1 MCHC (32.0-36.0) g/dL 34.0 RDW (11.8-14.1) % 12.1 Plt Count (130-400) x1000/uL 184 MPV (8.0-11.0) fL 10.7 Immature Gran % 0.1 Neutrophils % 67.6 Lymphocytes % 18.4 Monocytes % 11.4 Eosinophils % 2.4 Basophils % 0.1 Absolute Neutrophils (1.2-6.7) k/cumm 4.85 Absolute Lymphocytes (1.2-3.4) k/cumm 1.32 Absolute Monocytes (0.11-0.7) k/cumm 0.82 H Absolute Eosinophils (0.0-0.7) k/cumm 0.17 Absolute Basophils (0.0-0.2) k/cumm 0.01 PT (9.3-11.0) sec INR (0.9-1.1) APTT (21.0-31.4) sec D-Dimer (<500) ng/mlFEU 1525 H Sodium (136-145) mmol/L 132 L Potassium (3.5-5.1) mmol/L 3.4 L Chloride (98-107) mmol/L 95 L Carbon Dioxide (21.0-32.0) mmol/L 27.2 Anion Gap (3-11) mmol/L 9.8 BUN (7-18) mg/dL 31 H Creatinine (0.70-1.30) mg/dL 1.26 Estimated GFR/1.73 m2 (mL/min/1.73m2) 54.79 Glucose (70-100) mg/dL 106 H Calcium (8.5-10.1) mg/dL 10.1 Total Bilirubin (0.2-1.0) mg/dL 0.6 AST (15-37) U/L 28 ALT (12-78) U/L 37 Alkaline Phosphatase (46-116) U/L 85 Troponin I (0.00-0.06) ng/mL 0.03 NT-Pro-B Natriuret Pep ( - 299) pg/mL Total Protein (6.4-8.2) g/dL 7.4 Albumin (3.4-5.0) g/dL 3.9 Range/Units 08/18/18 08/18/18 17:10 17:10 WBC (4.4-10.8) k/cumm RBC (4.50-6.00) m/cumm Hgb (13.5-17.5) g/dL Hct (40.0-50.0) % MCV (80-95) fL MCH (27.0-33.0) pg MCHC (32.0-36.0) g/dL RDW (11.8-14.1) % Plt Count (130-400) x1000/uL MPV (8.0-11.0) fL Immature Gran % Neutrophils % Lymphocytes % Monocytes % Eosinophils % Basophils % Absolute Neutrophils (1.2-6.7) k/cumm Absolute Lymphocytes (1.2-3.4) k/cumm Absolute Monocytes (0.11-0.7) k/cumm Absolute Eosinophils (0.0-0.7) k/cumm Absolute Basophils (0.0-0.2) k/cumm PT (9.3-11.0) sec 10.0 INR (0.9-1.1) 1.0 APTT (21.0-31.4) sec 26.6 D-Dimer (<500) ng/mlFEU Sodium (136-145) mmol/L Potassium (3.5-5.1) mmol/L Chloride (98-107) mmol/L Carbon Dioxide (21.0-32.0) mmol/L Anion Gap (3-11) mmol/L BUN (7-18) mg/dL Creatinine (0.70-1.30) mg/dL Estimated GFR/1.73 m2 (mL/min/1.73m2) Glucose (70-100) mg/dL Calcium (8.5-10.1) mg/dL Total Bilirubin (0.2-1.0) mg/dL AST (15-37) U/L ALT (12-78) U/L Alkaline Phosphatase (46-116) U/L Troponin I (0.00-0.06) ng/mL NT-Pro-B Natriuret Pep ( - 299) pg/mL 160 Total Protein (6.4-8.2) g/dL Albumin (3.4-5.0) g/dL
[2018-08-18 20:58] LABS: Troponin I 0.03 ng/mL (0.00-0.06)
== END 2018-08-18 21:43 | disposition home or self-care (01) ==
PROVIDERS: Emergency Provider Student in an Organized Health Care Education/Training Program; PCP Internal Medicine
DX: R07.9 Chest pain, unspecified (principal); K80.20 Calculus of gallbladder without cholecystitis without obstruction; N28.1 Cyst of kidney, acquired
CPT/HCPCS: 36415; 71275; 80053; 93005; 99285; 71046; 83880; 84484; 85025; 85379; 85610; 85730; 93010; J3490

== ENCOUNTER → 2018-09-27 10:51 | Outpatient (BNVA) | payer MEDICARE, SELFPAY | PROVIDERS: PCP Internal Medicine; Visit Provider Urology | DX: N40.1 Benign prostatic hyperplasia with lower urinary tract symptoms (principal); N13.8 Other obstructive and reflux uropathy; R35.1 Nocturia; R35.0 Frequency of micturition; I10 Essential (primary) hypertension | CPT/HCPCS: 51798; 99213 ==

== ENCOUNTER 2018-11-09 10:51 | Outpatient (REF) | payer MEDICARE, SELFPAY ==
[2018-11-10 13:25] LABS: Campylobacter PCR SEE COMMENTS; Salmonella PCR SEE COMMENTS; Shiga Toxin PCR SEE COMMENTS; Shigella/Enteroinvasive Ecoli SEE COMMENTS
== END 2018-11-09 11:11 ==
LOC: NCHCN 10:51
PROVIDERS: PCP Internal Medicine; Visit Provider Internal Medicine
DX: R19.7 Diarrhea, unspecified (principal)
CPT/HCPCS: 87329; 87505; 82272; 83630

== ENCOUNTER → 2018-12-26 13:55 | Outpatient (BNVA) | payer MEDICARE, SELFPAY | PROVIDERS: PCP Internal Medicine; Visit Provider Urology | DX: R35.0 Frequency of micturition (principal); R35.1 Nocturia | CPT/HCPCS: 99213 ==

== ENCOUNTER 2019-03-06 12:49 | Outpatient (REF) | payer MEDICARE, SELFPAY ==
--- NOTE | 2019-03-06 12:00 | SKI_PTH ---
PATIENT: Asim Cox LOC: [facility] U#:[id number] AGE/SX: 84/M ROOM: RE03/06/[address]: Cam Langley DO : 1935 BED: DIS: 03/06/2019 SPEC #: [id number] RECD: 03/06/19 18:24 STATUS: LIBERTAD REArmando #: [id number] ESTHER: 03/06/19 12:[address]: Cam Langley DEPT: Surgical Specimen RECD BY: Kimberlee Fields ENTERED: 03/06/19 18:25 SP TYPE: EMERITA WAGNER DR: Chau Arshad Tissues: 1 - SKIN BIOPSY(SHAVE/PUNCH) 2 - SKIN BIOPSY(SHAVE/PUNCH) 3 - SKIN BIOPSY(SHAVE/PUNCH) Procedures: SKIN LEVEL 4 Comments: [id number]
== END 2019-03-06 13:09 ==
LOC: LBN 12:49
PROVIDERS: PCP Internal Medicine; Visit Provider Otolaryngology Otolaryngology/Facial Plastic Surgery
DX: L82.1 Other seborrheic keratosis (principal)
CPT/HCPCS: 88305

== ENCOUNTER 2019-03-09 16:57 | Emergency (ER) | payer MEDICARE, SELFPAY ==
[2019-03-09 17:03] VITALS: BP 166/73; PULSE 75; RESP 18; TEMP 36.7; O2SAT 96
--- NOTE | 2019-03-09 17:20 | ED.GENADUL_ITS ---
Discharge Plan Disposition Patient Disposition: HOME Condition: Stable Discharge Details Chief Complaint: Laceration Clinical Impression: Bleeding Primary Care Provider: Chau Arshad ED Provider: Hever Bermudez Home Meds and New Rx's Prescriptions: Continued chlorthalidone 25 mg tablet 12.5 mg PO DAILY RF: 0 Myrbetriq 25 mg tablet extended release 24 hr 25 mg PO DAILY Qty: 28 RF: 0 alfuzosin [Uroxatral] 10 mg tablet extended release 24 hr 10 mg PO DAILY Qty: 30 RF: 12 clopidogrel [Plavix] 75 mg tablet 75 mg PO DAILY Qty: 30 RF: 1 Prostate Advantage 1 tab PO DAILY RF: 0 polyethylene glycol 3350 [Miralax] 17 gram Powder In Packet See Rx Instructions .ROUTE .COMPLEX RF: 0 triamcinolone acetonide 0.1 % Cream 1 applic TOPICAL BID RF: 0 clotrimazole 1 % Cream 1 applic TOPICAL BID RF: 0 New Chapter Blood Pressure 1 tab PO DAILY RF: 0 atorvastatin 20 mg tablet 40 mg PO DAILY RF: 0 Discharge Instructions Additional Instructions: if bleeding continues hold pressure for 20 minutes on it with hard pressure. If bleeding doesn't stop return to the emergency department Medical Decision Making 84 yo male who is on plavix and who on Wednesday had a excision of a lesion on his chin with Dr. Langley per pt comes in after he accidentally touched the site with his finger and has had oozing of blood since so came here. He has 1mm area that is slowly oozing blood. I used silver nitrate to stop it and then placed dermabond over it, will monitor for rebleeding bleeding controlled, will d/c Differential Diagnosis Differential Diagnosis: skin tear, biopsy site bleeding HPI General Mode of arrival: ambulatory . Date/Time Provider Initiated Documentation: 03/09/19 17:03 . Limitations to Documentation: no limitations . Information obtained by: patient . History of Present Illness 84 year old M presents to the emergency department with the chief complaint of chin bleeding, described as mild, Patient started experiencing this hour(s) (1) and it has been constant. No relieving factors improve symptom(s), No exacerbating factors reported . Patient notes no other symptoms.. Related Data Home Medications Medication Instructions Recorded Confirmed New Chapter Blood Pressure 1 tab PO DAILY 01/27/18 03/22/18 Prostate Advantage 1 tab PO DAILY 01/27/18 03/22/18 clotrimazole 1 applic TOPICAL BID 01/27/18 08/18/18 polyethylene glycol 3350 [Miralax] See Rx Instructions .ROUTE .COMPLEX 01/27/18 08/18/18 triamcinolone acetonide 1 applic TOPICAL BID 01/27/18 08/18/18 chlorthalidone 25 mg tablet 12.5 mg PO DAILY tab 02/16/18 08/18/18 atorvastatin 20 mg tablet 40 mg PO DAILY tab 03/22/18 08/18/18 mirabegron 25 mg tablet,extended 25 mg PO DAILY #28 tab 12/26/18 12/26/18 release 24 hr alfuzosin 10 mg tablet,extended 10 mg PO DAILY #30 tab 12/27/18 12/27/18 release 24 hr clopidogrel 75 mg tablet 75 mg PO DAILY #30 tab 02/27/19 Previous Rx's Medication Instructions Recorded mirabegron 25 mg tablet,extended 25 mg PO DAILY #28 tab 12/26/18 release 24 hr alfuzosin 10 mg tablet,extended 10 mg PO DAILY #30 tab 12/27/18 release 24 hr clopidogrel 75 mg tablet 75 mg PO DAILY #30 tab 02/27/19 Allergies Allergy/AdvReac Type Severity Reaction Status Date / Time solifenacin [From Vesicare] Allergy TIA Verified 03/09/19 17:06 clindamycin AdvReac Severe Unverified 03/09/19 17:06 General Stated Complaint: Laceration DOUGIE: 4 Review of Systems All systems reviewed & are unremarkable except as noted in HPI and below Constitutional Constitutional: Denies chills, Denies fever(s) and Denies weakness Cardiovascular Cardiovascular: Denies chest pain and Denies dyspnea Respiratory Respiratory: Denies dyspnea Gastrointestinal Gastrointestinal: Denies abdominal pain, Denies nausea and Denies vomiting Musculoskeletal Musculoskeletal: Denies joint swelling Neurologic Neurologic: Denies weakness [facility] Medical History (Updated 12/27/18 @ 07:02 by Felix Cardoza MD) Carotid stenosis, right (Acute) CVA (cerebral vascular accident) (Chronic) Hypertension (Chronic) Idiopathic peripheral neuropathy (Chronic) Lower urinary tract symptoms (LUTS) (Acute) Nocturia (Acute) Osteoarthritis, hip, bilateral (Acute) Vascular dementia (Chronic) Surgical History Excision, Lesion (02/27/16) History of right-sided carotid endarterectomy (Acute) Status post bilateral total hip replacement (Acute) Social History Smoking/Tobacco Use Status: Former Tobacco Use Quit Date: 04/12/69 Alcohol Intake: never Drug use: Never Substance use type: does not use Household members: spouse 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 Seatbelt use: always Do you feel safe in your relationship?: Yes Exam Const General: no acute distress Orientation: alert HENMT Head: no palpable skull fracture Ears: external ears normal General nose exam: external nose normal Mouth: moist mucous membranes Eyes General: appearance normal, both eyes and all related structures Neck Neck: normal visual inspection Resp Effort & Inspection: normal respiratory effort and able to speak in complete sentences Cardio Rate: regular rate Skin General skin exam: no rashes or lesions noted Neuro General: alert and oriented x3 Extrem General: normal to inspection Psych Mental Status: mental status grossly normal Course Vital Signs Vital signs: Vital Signs Temperature 36.7 C 03/09/19 17:03 Pulse 75 03/09/19 17:03 Respiratory Rate 18 03/09/19 17:03 Blood Pressure 166/73 H 03/09/19 17:03 Pulse Oximetry 96 03/09/19 17:03 Temperature 36.7 C 03/09/19 17:03 Temperature Source Skin 03/09/19 17:03 Pulse 75 03/09/19 17:03 Respiratory Rate 18 03/09/19 17:03 Respiratory Effort Non-Labored 03/09/19 17:07 Blood Pressure 166/73 H 03/09/19 17:03 Blood Pressure Position Sitting 03/09/19 17:03 Pulse Oximetry 96 03/09/19 17:03 Oxygen Delivery Method Room Air 03/09/19 17:03 Oxygen Flow Rate 0 03/09/19 17:03
== END 2019-03-09 17:50 | disposition home or self-care (01) ==
LOC: ER 17:38
PROVIDERS: Emergency Provider Emergency Medicine; PCP Internal Medicine
DX: S01.81XA Laceration without foreign body of other part of head, initial encounter (principal); W26.8XXA Contact with other sharp object(s), not elsewhere classified, initial encounter; Y84.8 Other medical procedures as the cause of abnormal reaction of the patient, or of later complication, without mention of misadventure at the time of the procedure; Z79.02 Long term (current) use of antithrombotics/antiplatelets; I10 Essential (primary) hypertension
CPT/HCPCS: 12001

== ENCOUNTER → 2019-03-31 10:39 | Outpatient (BNVA) | payer MEDICARE, SELFPAY | PROVIDERS: PCP Internal Medicine; Referring Provider Internal Medicine; Visit Provider Urology | DX: R35.0 Frequency of micturition (principal); I10 Essential (primary) hypertension | CPT/HCPCS: 99213 ==

== ENCOUNTER 2019-04-28 12:19 | Outpatient (REF) | payer MEDICARE, SELFPAY ==
[2019-04-28 20:48] LABS: HCT 45.8 % (40.0-50.0); Mean Corp. HGB Concentration 32.8 g/dL (32.0-36.0); Mean Corpuscular Hemoglobin 30.5 pg (27.0-33.0); Mean Corpuscular Volume 93.1 fL (80-95); Mean Platelet Volume 11.1 fL (8.0-11.0); Platelet Count 177 x1000/uL (130-400); RBC 4.92 m/cumm (4.50-6.00); RBC Distribution Width 12.4 % (11.8-14.1); White Blood Cell Count 6.67 k/cumm (4.4-10.8)
[2019-04-28 21:07] LABS: Anion Gap 8.7 mmol/L (3-11); BUN 28 mg/dL (7-18); CO2 30.3 mmol/L (21.0-32.0); CREATININE 1.28 mg/dL (0.70-1.30); Calcium 10.4 mg/dL (8.5-10.1); Chloride 102 mmol/L (98-107); Estimated GFR 53.67 (mL/min/1.73m2); Glucose 80 mg/dL (74-106); Sodium 141 mmol/L (136-145); TSH 1.66 uIU/mL (0.36-3.74)
== END 2019-04-28 12:39 ==
LOC: NCHCN 12:19
PROVIDERS: PCP Internal Medicine; Visit Provider Internal Medicine
DX: R41.3 Other amnesia (principal); F01.50 Vascular dementia, unspecified severity, without behavioral disturbance, psychotic disturbance, mood disturbance, and anxiety
CPT/HCPCS: 80048; 85027; 84443

== ENCOUNTER → 2019-08-11 10:11 | Outpatient (BNVA) | payer MEDICARE, SELFPAY | PROVIDERS: PCP Internal Medicine; Referring Provider Internal Medicine; Visit Provider Urology | DX: N40.1 Benign prostatic hyperplasia with lower urinary tract symptoms (principal); R35.1 Nocturia; R39.15 Urgency of urination | CPT/HCPCS: 99213; 99442 ==

== ENCOUNTER → 2019-09-06 09:27 | Outpatient (BNVA) | payer MEDICARE, SELFPAY | PROVIDERS: PCP Internal Medicine; Referring Provider Internal Medicine; Visit Provider Nurse Practitioner Gerontology | DX: B37.89 Other sites of candidiasis (principal); I10 Essential (primary) hypertension | CPT/HCPCS: 99213 ==

== ENCOUNTER → 2019-09-11 09:20 | Outpatient (BNVA) | payer MEDICARE, SELFPAY | PROVIDERS: PCP Internal Medicine; Referring Provider Internal Medicine; Visit Provider Nurse Practitioner Gerontology | DX: R30.0 Dysuria (principal); R39.89 Other symptoms and signs involving the genitourinary system; B37.9 Candidiasis, unspecified; I10 Essential (primary) hypertension | CPT/HCPCS: 81003; 99213 ==

== ENCOUNTER → 2019-11-30 11:31 | Outpatient (BNVA) | payer MEDICARE, SELFPAY | PROVIDERS: PCP Internal Medicine; Referring Provider Internal Medicine; Visit Provider Physical Therapy Assistant | DX: L98.8 Other specified disorders of the skin and subcutaneous tissue (principal); I10 Essential (primary) hypertension | CPT/HCPCS: 99212 ==

== ENCOUNTER → 2019-12-08 09:19 | Outpatient (BNVA) | payer MEDICARE, SELFPAY | PROVIDERS: PCP Internal Medicine; Referring Provider Internal Medicine; Visit Provider Physical Therapy Assistant | DX: L98.9 Disorder of the skin and subcutaneous tissue, unspecified (principal); L98.8 Other specified disorders of the skin and subcutaneous tissue; I10 Essential (primary) hypertension | CPT/HCPCS: 99212; 99441 ==

== ENCOUNTER → 2019-12-15 13:00 | Outpatient (BNVA) | payer MEDICARE, SELFPAY | PROVIDERS: PCP Internal Medicine; Referring Provider Internal Medicine; Visit Provider Physical Therapy Assistant | DX: L98.8 Other specified disorders of the skin and subcutaneous tissue (principal); I10 Essential (primary) hypertension | CPT/HCPCS: 99212 ==

== ENCOUNTER → 2020-01-12 08:32 | Outpatient (BNVA) | payer MEDICARE, SELFPAY | PROVIDERS: PCP Internal Medicine; Referring Provider Internal Medicine; Visit Provider Physical Therapy Assistant | DX: S41.102D Unspecified open wound of left upper arm, subsequent encounter (principal); X58.XXXD Exposure to other specified factors, subsequent encounter; I10 Essential (primary) hypertension | CPT/HCPCS: 99212; 99441 ==

== ENCOUNTER 2020-07-09 12:44 | Outpatient (REF) | payer MEDICARE, SELFPAY ==
[2020-07-09 21:10] LABS: Anion Gap 6.7 mmol/L (3-11); BUN 36 mg/dL (7-18); CO2 30.3 mmol/L (21.0-32.0); CREATININE 1.5 mg/dL (0.70-1.30); Calcium 10.9 mg/dL (8.5-10.1); Chloride 103 mmol/L (98-107); Estimated GFR 44.59 (mL/min/1.73m2); Glucose 88 mg/dL (74-106); Potassium 3.8 mmol/L (3.5-5.1); Sodium 140 mmol/L (136-145)
[2020-07-10 17:23] LABS: ALT 25 U/L (16-63); AST 25 U/L (15-37); Alkaline Phosphatase 80 U/L (46-116); Bilirubin, Direct 0.2 mg/dL (0.0-0.2); Total Protein 7.1 g/dL (6.4-8.2)
== END 2020-07-09 12:45 | disposition home or self-care (01) ==
LOC: NCHCN 12:44
PROVIDERS: PCP Internal Medicine; Visit Provider Internal Medicine
DX: E83.52 Hypercalcemia (principal); I10 Essential (primary) hypertension
CPT/HCPCS: 80048; 80076

== ENCOUNTER 2020-07-16 11:19 | Outpatient (REF) | payer MEDICARE, SELFPAY ==
[2020-07-16 13:28] LABS: ALT 23 U/L (16-63); AST 23 U/L (15-37); Albumin 4.1 g/dL (3.4-5.0); Alkaline Phosphatase 81 U/L (46-116); Bilirubin, Direct 0.2 mg/dL (0.0-0.2); Bilirubin, Total 0.9 mg/dL (0.2-1.0); Total Protein 7.1 g/dL (6.4-8.2)
[2020-07-16 17:16] LABS: PSA, Diagnostic 3.5 ng/mL (0.0-6.5)
[2020-07-17 09:56] LABS: Parathyroid Hormone,Intact 156 pg/mL (19-88)
[2020-07-17 12:29] LABS: Albumin 61.9 % (55.8-66.1); Total Protein 7.1 g/dL (6.3-8.2)
== END 2020-07-16 11:20 | disposition home or self-care (01) ==
LOC: NCHCN 11:19
PROVIDERS: PCP Internal Medicine; Visit Provider Internal Medicine
DX: E83.52 Hypercalcemia (principal); N40.1 Benign prostatic hyperplasia with lower urinary tract symptoms; R39.15 Urgency of urination
CPT/HCPCS: 80076; 83970; 84153; 84165

== ENCOUNTER → 2020-09-26 13:02 | Outpatient (BNVA) | payer MEDICARE, SELFPAY | PROVIDERS: PCP Internal Medicine; Referring Provider Internal Medicine; Visit Provider Physical Therapy Assistant | DX: L03.116 Cellulitis of left lower limb (principal) | CPT/HCPCS: 99214 ==

== ENCOUNTER 2020-10-11 13:41 | Outpatient (REF) | payer MEDICARE, SELFPAY ==
[2020-10-11 21:06] LABS: Albumin 3.8 g/dL (3.4-5.0); CREATININE 1.6 mg/dL (0.70-1.30); Calcium 10.4 mg/dL (8.5-10.1); Estimated GFR 41.39 (mL/min/1.73m2); PHOSPHORUS 3.1 mg/dL (2.6-4.7)
[2020-10-14 02:18] LABS: Vitamin D 25 Total 43.8 ng/mL (30-100)
[2020-10-16 11:47] LABS: Parathyroid Hormone,Intact 109 pg/mL (19-88)
== END 2020-10-11 13:42 | disposition home or self-care (01) ==
LOC: NCHCN 13:41
PROVIDERS: PCP Internal Medicine; Visit Provider Internal Medicine
DX: E21.0 Primary hyperparathyroidism (principal); L03.116 Cellulitis of left lower limb; L98.9 Disorder of the skin and subcutaneous tissue, unspecified; K59.09 Other constipation; R25.1 Tremor, unspecified; H61.899 Other specified disorders of external ear, unspecified ear
CPT/HCPCS: 82306; 82040; 82310; 82565; 83970; 84100

== ENCOUNTER 2020-10-16 14:02 | Outpatient (REF) | payer MEDICARE, SELFPAY ==
[2020-10-16 15:25] LABS: Creatinine,Urine 101.02 mg/dL
[2020-10-16 15:30] LABS: Creatinine,24hr Ur 1.01 g/24hr (0.95-2.49); Total Volume 1000 ml
[2020-10-17 08:56] LABS: Calcium Urine 5.7 mg/dL (See Note); Calcium Urine 24 hr 57 mg/24hrs (100-300); Timed Urine Volume 1000 mL
== END 2020-10-16 14:03 | disposition home or self-care (01) ==
LOC: NCHCN 14:02
PROVIDERS: PCP Internal Medicine; Visit Provider Internal Medicine
DX: E21.0 Primary hyperparathyroidism (principal)
CPT/HCPCS: 81050; 82340; 82570

== ENCOUNTER 2020-10-30 10:02 | Day surgery (SDC) | payer MEDICARE, SELFPAY ==
--- NOTE | 2020-10-30 06:46 | HPE_ITS ---
Date of service: 10/30/20 Time of Service: 11:40 Assessment and Plan Assessment and plan (1) Leg skin lesion, left: Status: Acute Assessment and plan: Skin lesion to left anterior lower leg. Given the size of this lesion, this will need to be excised in the OR. Discussed with both Mr. Cox and his that given the location,, closure may be very difficult which would create delayed wound healing. Reviewed risks, benefits and complications. Complications include but are not limited to bleeding, infection, wound dehisence. Questions were entertained and answered to his satisfaction and he wished to proceed. No guarantees were given or implied. LLE skin lesion excision under local. History of Present Illness Narrative: 85 y/o male with a history of skin lesions, vascular dementia and hemorrhagic stroke presents for further evaluation of a skin lesion located on his left lower leg. He and his (Melody) report this has been present for several months and has progressively worsened. He was treated with a 7 day course of Cephalexin by his PCP for concern of developing Cellulitis. The patient expresses that he would like this removed as soon as possible. Denies chest pain, palpitations, dyspnea or dyspnea with exertion. Denies personal or family history of adverse reactions to anesthesia. Denies any history of CT, seizures, bleeding or clotting disorders. Reports having implanted metal in bilateral hips. Denies any history of chemotherapy or radiation. Review of Systems Constitutional Constitutional: Denies fever(s), Denies headache(s) and Denies weight loss Eyes Eyes: Denies change in vision ENT Ears, Nose, Mouth, and Throat: Denies change in voice, Denies headache(s) and Denies hoarseness Cardiovascular Cardiovascular: Denies chest pain, Denies chest pain at rest, Denies irregular heart rhythm, Denies dyspnea and Denies dyspnea on exertion Respiratory Respiratory: Denies cough, Denies dyspnea and Denies dyspnea on exertion Gastrointestinal Gastrointestinal: Reports as per HPI Genitourinary Genitourinary: Denies dysuria, Denies urinary incontinence and Denies urinary urgency Neurologic Neurologic: Denies headache(s) Endocrine Endocrine: Reports system reviewed and no additional complaints, except as documented Hematologic/Lymphatic Hematologic/Lymphatic: Denies easy bruising and Denies lymphadenopathy [facility] Medical History (Updated 10/30/20 @ 10:38 by Ajay Osuna) Carotid stenosis, right CVA (cerebral vascular accident) Hyperparathyroidism Hypertension Idiopathic peripheral neuropathy Lower urinary tract symptoms (LUTS) Nocturia Osteoarthritis, hip, bilateral Vascular dementia Surgical History Excision, Lesion (02/27/16) History of right-sided carotid endarterectomy Status post bilateral total hip replacement Family History Other Unknown family medical history Social History Smoking/Tobacco Use Status: Former Tobacco Use Quit Date: 04/12/69 Smoking risk assessment performed?: Yes Alcohol Intake: never Drug use: Never Substance use type: does not use Household members: spouse 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 Current gender identity: male Seatbelt use: always Do you feel safe in your relationship?: Yes Meds Allergies and Home Medications Allergies Allergy/AdvReac Type Severity Reaction Status Date / Time solifenacin [From Vesicare] Allergy TIA Verified 12/15/19 13:07 clindamycin AdvReac Severe Unverified 12/15/19 13:07 Home Medications Medication Instructions Recorded Confirmed Type clopidogrel 75 mg tablet 75 mg PO DAILY #30 tab 02/27/19 10/30/20 Rx rosuvastatin 10 mg tablet 10 mg PO DAILY 03/31/19 10/30/20 History alfuzosin 10 mg tablet,extended 10 mg PO DAILY #60 tab 11/13/19 10/30/20 Rx release 24 hr cholecalciferol (vitamin D3) 25 25 mcg PO DAILY 11/29/19 10/30/20 History mcg (1,000 unit) capsule memantine 5 mg tablet 5 mg PO BID 11/29/19 09/27/20 History potassium chloride 10 mEq 10 meq PO DAILY 11/29/19 10/30/20 History tablet,extended release loperamide 2 mg capsule 2 mg PO Q6H PRN 09/24/20 10/30/20 History polyethylene glycol 3350 17 17 g PO DAILY PRN 09/24/20 10/30/20 History gram/dose oral powder acetaminophen [Tylenol] 650 PO PRN 10/30/20 History losartan 25 mg PO DAILY 10/30/20 10/30/20 History omega-3 fatty acids [Fish Oil] 1,000 mg PO DAILY 10/30/20 10/30/20 History Exam Const General: cooperative, comfortable and no acute distress Orientation: alert and oriented x3 HENMT Head: normocephalic and atraumatic Resp Effort & Inspection: normal respiratory effort Auscultation: clear to auscultation bilaterally Skin Other: left Nguyen- raised lesion measuring 2 x 1 cm
--- NOTE | 2020-10-30 06:53 | ROE_ITS ---
Date of service: 10/30/20 Time of Service: 13:01 Operative Note Operative Note DATE OF PROCEDURE: 10/30/20 PRE-OP DIAGNOSIS: left Lower extremity skin lesion POST-OP DIAGNOSIS: same PROCEDURE: Excision of left lower extremity lesion SURGEON: Charity Guerrero MACHINE ROOM OPERATOR: Kika Amanda ANESTHESIA TYPE: Local By Surgeon (20 cc of 1% Lidocaine with epi and 10 cc of 0.25% marcaine) ESTIMATED BLOOD LOSS: 25 PATHOLOGY: other (skin lesion) COMPLICATIONS: None Patient was transported to: same day Patient's condition: stable Indications: Skin lesion to left anterior lower leg. Given the size of this lesion, this will need to be excised in the OR. Discussed with both Mr. Cox and his that given the location,, closure may be very difficult which would create delayed wound healing. Reviewed risks, benefits and complications. Complications include but are not limited to bleeding, infection, wound dehisence. Questions were entertained and answered to his satisfaction and he wished to proceed. No guarantees were given or implied. LLE skin lesion excision under local. Findings: 2.3 x 2.3 raised skin lesion Procedure Description: After informed consent was obtained the patient was placed in a supine position. Monitors were applied and a time out was done. The patients name, , allergies to medications, procedure to be done. The skin was cleaned with chlorhexedine and draped in a standard fashion. The skin was infiltrated with the above local anesthetic. The skin was then prepped and draped in a sterile surgical fashion. An incision was made around the lesion with a 15 blade. Dissection was done around the lesion using cuatery down through the subcutaneous tissue, down to the tibia. The specimen was removed and marked with a single suture auperior and a douhle suture medial. The specimen measured 9 x 3 cm. The wound was irrigated with some saline. Bleeding was stopped using cautery. Once the wound was clean and dry the dermis was closed with a 2-0 proline interrupted veritcal mattress suturel. Skin was cleaned and dried and a 10 x 20 cm PICCO dressing was applied. The patient tolerated the procedure well and there were no immediate complications. Needle counts were correct at the end of the case.
--- NOTE | 2020-10-30 07:05 | PDOC.DSDIS_ITS ---
Discharge Plan Disposition Patient Disposition: HOME Condition: Good Discharge Details Reason For Visit: Skin lesion Attending Provider: Charity Guerrero Primary Care Provider: Chau Arshad Home Meds and New Rx's Prescriptions: New Nucynta 50 mg tablet 50 mg PO Q6H PRNQty: 14 RF: 0 Continued rosuvastatin 10 mg tablet 10 mg PO DAILY RF: 0 memantine 5 mg tablet 5 mg PO BID RF: 0 cholecalciferol (vitamin D3) 25 mcg (1,000 unit) capsule 25 mcg PO DAILY RF: 0 potassium chloride 10 mEq tablet extended release 10 meq PO DAILY RF: 0 polyethylene glycol 3350 [Miralax] 17 gram/dose powder 17 g PO DAILY PRNRF: 0 loperamide [Imodium A-D] 2 mg capsule 2 mg PO Q6H PRNRF: 0 clopidogrel [Plavix] 75 mg tablet 75 mg PO DAILY Qty: 30 RF: 1 alfuzosin [Uroxatral] 10 mg tablet extended release 24 hr 10 mg PO DAILY Qty: 60 RF: 12 acetaminophen [Tylenol] 325 mg Tablet 650 PO PRNRF: 0 losartan 25 mg Tablet 25 mg PO DAILY RF: 0 omega-3 fatty acids Capsule 1,000 mg PO DAILY RF: 0 Discharge Instructions Additional Instructions: Activity at Home after surgery: 1. As tolerated. Please take it easy Diet, Nutrition, & wound healin. Avoid alcohol until after you are recovered from your surgery 2. Make sure to eat plenty of lean protein (meat, fish, eggs, cottage cheese, beans) 3. Eat a variety of fruits and vegetables. Eat plenty of high fiber foods to avoid constipation. 4. Drink plenty of liquids to stay hydrated and avoid constipation Pain Medications: 1. Tylenol 650mg every 6 hours as needed 2. If a narcotic has been prescribed take as directed only for breakthrough pain Other: 1. You may shower daily. Do not scrub the incisions. Place the plastic boot amari your leg. Detach the dressing from the battery pack 2. Do not soak the incisions 3. You may alternate ice and heat as needed for pain and swelling Wound Care: 1. Keep the incisions clean and dry Please call our office if you develop: 1. Fevers >101.5 2. Nausea or Vomiting 3. Worsening pain 4. Redness and thick discharge from the wounds If after hours please call the Hospital at and ask to speak to the on-call surgeon Referrals: Charity Guerrero MD [ [facility] STAFF PHYSICIAN] - 11/01/20 9:45 am (11/07/20 at 9:15) Activity:: take it easy Diet:: As Tolerated Discharge Orders Discharge Orders: Discharge Order (Routine); Ordered 10/30/20 Ordered By: Charity Guerrero DS: Diagnosis Discharge Diagnosis (1) Leg skin lesion, left: Status: Acute
[2020-10-30 10:29] VITALS: BP 156/73; PULSE 66; RESP 16; TEMP 36.6; O2SAT 99
[2020-10-30] MEDS: Bupivacaine 0.25% Pres-Free 30 ML VIAL (12:12)
--- NOTE | 2020-10-30 12:12 | SKI_PTH ---
PATIENT: Asim Cox LOC: [facility] U#:[id number] AGE/SX: 85/M ROOM: RE10/30/[address]: Charity Guerrero MD : [id number] BED: DIS: 10/30/2020 SPEC #: [id number] RECD: 10/30/20 16:44 STATUS: LIBERTAD REArmando #: [id number] ESTHER: 10/30/20 12:[address]: Charity Guerrero DEPT: Surgical Specimen RECD BY: Kimberlee Fields ENTERED: 10/30/20 16:45 SP TYPE: EMERITA WAGNER DR: Chau Arshad Tissues: 1 - SKIN BIOPSY(SHAVE/PUNCH) Procedures: SKIN LEVEL 4 Comments: [id number]
[2020-10-30 12:40] VITALS: PULSE 66; RESP 16; TEMP 36.4; O2SAT 98
== END 2020-10-30 12:55 | disposition home or self-care (01) ==
LOC: SUR 10:02
PROVIDERS: PCP Internal Medicine; Visit Provider Surgery
PROC: (CPT 11606; principal; 2020-10-30 10:45)
DX: C44.729 Squamous cell carcinoma of skin of left lower limb, including hip (principal)
CPT/HCPCS: 11606; 88305

== ENCOUNTER → 2020-11-01 09:37 | Outpatient (BNVA) | payer MEDICARE, SELFPAY | PROVIDERS: PCP Internal Medicine; Referring Provider Internal Medicine; Visit Provider Surgery | DX: Z48.817 Encounter for surgical aftercare following surgery on the skin and subcutaneous tissue (principal); R26.81 Unsteadiness on feet ==

== ENCOUNTER 2020-11-02 02:39 | Emergency (ER) | payer MEDICARE, SELFPAY ==
--- NOTE | 2020-11-02 02:44 | ED.GENADUL_ITS ---
Discharge Plan Disposition Patient Disposition: HOME Condition: Good Discharge Details Clinical Impression: Encounter for post surgical wound check Primary Care Provider: Chau Arshad ED Provider: Tushar Rodriguez Meds and New Rx's Prescriptions: Continued rosuvastatin 10 mg tablet 10 mg PO DAILY RF: 0 Nucynta 50 mg tablet 50 mg PO Q6H MDD 4 tabs a day PRN (Reason: pain) Qty: 14 RF: 0 memantine 5 mg tablet 5 mg PO BID RF: 0 cholecalciferol (vitamin D3) 25 mcg (1,000 unit) capsule 25 mcg PO DAILY RF: 0 potassium chloride 10 mEq tablet extended release 10 meq PO DAILY RF: 0 polyethylene glycol 3350 [Miralax] 17 gram/dose powder 17 g PO DAILY PRNRF: 0 loperamide [Imodium A-D] 2 mg capsule 2 mg PO Q6H PRNRF: 0 clopidogrel [Plavix] 75 mg tablet 75 mg PO DAILY Qty: 30 RF: 1 alfuzosin [Uroxatral] 10 mg tablet extended release 24 hr 10 mg PO DAILY Qty: 60 RF: 12 acetaminophen [Tylenol] 325 mg Tablet 650 PO PRNRF: 0 losartan 25 mg Tablet 25 mg PO DAILY RF: 0 omega-3 fatty acids Capsule 1,000 mg PO DAILY RF: 0 Discharge Instructions Additional Instructions: Resume previous postop discharge instructions as per Dr. Guerrero. Follow-up with Dr. Guerrero as planned, but call office Wednesday if any further concerns. Return to ED if fever, excessive bleeding, increasing pain, other concerns. Referrals: Charity Guerrero MD [ [facility] STAFF PHYSICIAN] - Medical Decision Making Saturated ML dressing removed. No active bleeding present. Slight oozing proximal incisional site. No sign of infection. Sutures intact. Wound/skin cleaned with saline gauze. New ML dressing obtained from OR and applied. Patient to resume previous post op instructions and follow up. Return to ED if further issues/problems. Medical Records Medical records reviewed: Yes I reviewed the patient's medical records. HPI General Mode of arrival: ambulatory . Date/Time Provider Initiated Documentation: 11/02/20 02:40 . Limitations to Documentation: no limitations . Information obtained by: patient, RN notes reviewed and old records reviewed . HPI Narrative: Patient presents to the ED for wound check/dressing change. Patient had skin lesion removed by Dr. Guerrero mid week. Patient sent home with ML dressing. Followed up with Dr. Guerrero yesterday and had dressing change. Yesterday afternoon had a fall but did not think any injury or change had occurred. However, tonight the new dressing was completely saturated with blood. Patient presents for wound check/dressing change. He denies injury from the fall. There was no syncope. He has no chest pain or shortness of breath. He is on Plavix but no other anticoagulant. Related Data Home Medications Medication Instructions Recorded Confirmed clopidogrel 75 mg tablet 75 mg PO DAILY #30 tab 02/27/19 11/02/20 rosuvastatin 10 mg tablet 10 mg PO DAILY 03/31/19 11/02/20 alfuzosin 10 mg tablet,extended 10 mg PO DAILY #60 tab 11/13/19 11/02/20 release 24 hr cholecalciferol (vitamin D3) 25 25 mcg PO DAILY 11/29/19 11/02/20 mcg (1,000 unit) capsule memantine 5 mg tablet 5 mg PO BID 11/29/19 11/02/20 potassium chloride 10 mEq 10 meq PO DAILY 11/29/19 11/02/20 tablet,extended release loperamide 2 mg capsule 2 mg PO Q6H PRN 09/24/20 11/02/20 polyethylene glycol 3350 17 17 g PO DAILY PRN 09/24/20 11/02/20 gram/dose oral powder acetaminophen [Tylenol] 650 PO PRN 10/30/20 11/01/20 losartan 25 mg PO DAILY 10/30/20 11/02/20 omega-3 fatty acids 1,000 mg PO DAILY 10/30/20 11/02/20 tapentadol 50 mg tablet 50 mg PO Q6H PRN #14 tab MDD 4 11/01/20 11/02/20 tabs a day Previous Rx's Medication Instructions Recorded clopidogrel 75 mg tablet 75 mg PO DAILY #30 tab 02/27/19 alfuzosin 10 mg tablet,extended 10 mg PO DAILY #60 tab 11/13/19 release 24 hr tapentadol 50 mg tablet 50 mg PO Q6H PRN #14 tab MDD 4 11/01/20 tabs a day Allergies Allergy/AdvReac Type Severity Reaction Status Date / Time solifenacin [From Vesicare] Allergy TIA Verified 11/02/20 03:12 clindamycin AdvReac Severe Unverified 11/02/20 03:12 General DOUGIE: 4 Review of Systems Constitutional Constitutional: Denies fever(s) Cardiovascular Cardiovascular: Denies chest pain, Denies syncope and Denies dyspnea Respiratory Respiratory: Denies cough and Denies dyspnea Neurologic Neurologic: Denies syncope [facility] Medical History Carotid stenosis, right CVA (cerebral vascular accident) Hyperparathyroidism Hypertension Idiopathic peripheral neuropathy Lower urinary tract symptoms (LUTS) Nocturia Osteoarthritis, hip, bilateral Vascular dementia Surgical History Excision, Lesion (02/27/16) History of right-sided carotid endarterectomy Status post bilateral total hip replacement Family History Other Unknown family medical history Social History Smoking/Tobacco Use Status: Former Tobacco Use Quit Date: 04/12/69 Smoking risk assessment performed?: Yes Alcohol Intake: never Drug use: Never Substance use type: does not use Household members: spouse 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 Slight oozing of blood from proximal portion of incision. No erythema or signs of infection. Neuro General: patient alert, patient awake and no focal motor deficits
[2020-11-02 02:46] VITALS: BP 104/84; PULSE 75; RESP 20; TEMP 36.5; O2SAT 95
[2020-11-02 03:07] VITALS: BP 142/76
[2020-11-02 03:28] VITALS: BP 115/78; PULSE 75; RESP 20; TEMP 36.5; O2SAT 95
== END 2020-11-02 03:23 | disposition home or self-care (01) ==
LOC: ER 03:23
PROVIDERS: Emergency Provider Emergency Medicine; PCP Internal Medicine
DX: L76.82 Other postprocedural complications of skin and subcutaneous tissue (principal); Z48.817 Encounter for surgical aftercare following surgery on the skin and subcutaneous tissue
CPT/HCPCS: 97607; 99282

== ENCOUNTER 2020-11-02 11:06 | Emergency (ER) | payer MEDICARE, SELFPAY ==
[2020-11-02 11:14] VITALS: BP 151/60; PULSE 44; RESP 16; TEMP 36.8; O2SAT 97
--- NOTE | 2020-11-02 11:22 | ED.GENADUL_ITS ---
Discharge Plan Disposition Patient Disposition: HOME Condition: Stable Discharge Details Clinical Impression: Encounter for post surgical wound check Primary Care Provider: Chau Arshad ED Provider: Preston Stanley Home Meds and New Rx's Prescriptions: Continued rosuvastatin 10 mg tablet 10 mg PO DAILY RF: 0 Nucynta 50 mg tablet 50 mg PO Q6H MDD 4 tabs a day PRN (Reason: pain) Qty: 14 RF: 0 memantine 5 mg tablet 5 mg PO BID RF: 0 cholecalciferol (vitamin D3) 25 mcg (1,000 unit) capsule 25 mcg PO DAILY RF: 0 potassium chloride 10 mEq tablet extended release 10 meq PO DAILY RF: 0 polyethylene glycol 3350 [Miralax] 17 gram/dose powder 17 g PO DAILY PRNRF: 0 loperamide [Imodium A-D] 2 mg capsule 2 mg PO Q6H PRNRF: 0 clopidogrel [Plavix] 75 mg tablet 75 mg PO DAILY Qty: 30 RF: 1 alfuzosin [Uroxatral] 10 mg tablet extended release 24 hr 10 mg PO DAILY Qty: 60 RF: 12 acetaminophen [Tylenol] 325 mg Tablet 650 PO PRNRF: 0 losartan 25 mg Tablet 25 mg PO DAILY RF: 0 omega-3 fatty acids Capsule 1,000 mg PO DAILY RF: 0 Discharge Instructions Additional Instructions: I have applied Dermabond and Surgicel to the most superior aspect of your wound, bleeding appears to be controlled. Your wound VAC dressing was replaced. Please watch for new or worsening symptoms and return to the ER for any concerns. Otherwise I would like you to continue the instructions given to you by your surgical team and reached out to them on Wednesday to discuss your ER visit and need for outpatient reevaluation. Discharge Data Discharge Date/Time-TO BE ENTERED AT DEPARTURE: 11/02/20 13:18 Medical Decision Making 85-year-old gentleman presents for concern of his saturated surgical dressing. Clinically he appears well, nontoxic, no signs of secondary infection. Blood pressure 151/60. Pulse in triage was 44 but upon my evaluation was 57. The dressing was removed and a slight illness was noticed however easily controlled with slight pressure. Patient and family concerned that they only have 2 additional dressings and that they cannot take care of the wound adequately until . Discussed options. I applied Dermabond to the superior quarter of the laceration where the ooze was coming from. Then a piece of Surgicel was applied over the same location. We then again applied the ML dressing. Bleeding was controlled, patient was observed for a short period of time and no obvious bleeding through the dressing was noted. Patient and family are comfortable with discharge at this time. Plan is for discharge now, they were given an extra dressing, and they will contact their surgical team on Wednesday. They will continue to follow their wound care instructions given to them by their surgical team encouraged to return to the ER for new or worsening symptoms. Medical Records Medical records reviewed: Yes I reviewed the patient's medical records. HPI General Mode of arrival: ambulatory . Date/Time Provider Initiated Documentation: 11/02/20 11:08 . Limitations to Documentation: no limitations . Information obtained by: patient . HPI Narrative: This is an 85-year-old gentleman who presents to the ER for dressing a recheck. Patient is on Plavix, had a skin lesion removed from his left lower extremity on Wednesday, and had a ml dressing applied. Seen by surgery on Wednesday, subsequently in the ER late Wednesday night, early Wednesday morning, and now returning again because the dressing is saturated. Patient did have a recent fall, denies any injury, but reports that the bleeding seemed to be worse after the fall. He has no additional concerns or questions at this time. They only has 2 dressings left for rate change until they can be reevaluated on and they are concerned that they will not be able to adequately care for the wound. Related Data Home Medications Medication Instructions Recorded Confirmed clopidogrel 75 mg tablet 75 mg PO DAILY #30 tab 02/27/19 11/02/20 rosuvastatin 10 mg tablet 10 mg PO DAILY 03/31/19 11/02/20 alfuzosin 10 mg tablet,extended 10 mg PO DAILY #60 tab 11/13/19 11/02/20 release 24 hr cholecalciferol (vitamin D3) 25 25 mcg PO DAILY 11/29/19 11/02/20 mcg (1,000 unit) capsule memantine 5 mg tablet 5 mg PO BID 11/29/19 11/02/20 potassium chloride 10 mEq 10 meq PO DAILY 11/29/19 11/02/20 tablet,extended release loperamide 2 mg capsule 2 mg PO Q6H PRN 09/24/20 11/02/20 polyethylene glycol 3350 17 17 g PO DAILY PRN 09/24/20 11/02/20 gram/dose oral powder acetaminophen [Tylenol] 650 PO PRN 10/30/20 11/01/20 losartan 25 mg PO DAILY 10/30/20 11/02/20 omega-3 fatty acids 1,000 mg PO DAILY 10/30/20 11/02/20 tapentadol 50 mg tablet 50 mg PO Q6H PRN #14 tab MDD 4 11/01/20 11/02/20 tabs a day Previous Rx's Medication Instructions Recorded clopidogrel 75 mg tablet 75 mg PO DAILY #30 tab 02/27/19 alfuzosin 10 mg tablet,extended 10 mg PO DAILY #60 tab 11/13/19 release 24 hr tapentadol 50 mg tablet 50 mg PO Q6H PRN #14 tab MDD 4 11/01/20 tabs a day Allergies Allergy/AdvReac Type Severity Reaction Status Date / Time solifenacin [From Vesicare] Allergy TIA Verified 11/02/20 11:19 clindamycin AdvReac Severe Unverified 11/02/20 11:19 General Stated Complaint: Recheck DOUGIE: 3 Review of Systems Constitutional Constitutional: Denies fever(s) and Denies weakness Cardiovascular Cardiovascular: Denies chest pain and Denies dyspnea Respiratory Respiratory: Denies dyspnea Musculoskeletal Musculoskeletal: Denies numbness and Denies tingling Integumentary/Breasts Skin/Breast: Denies erythema and Denies rash Neurologic Neurologic: Denies numbness, Denies tingling and Denies weakness Hematologic/Lymphatic Hematologic/Lymphatic: Reports easy bleeding and Reports easy bruising [facility] Medical History Carotid stenosis, right CVA (cerebral vascular accident) Hyperparathyroidism Hypertension Idiopathic peripheral neuropathy Lower urinary tract symptoms (LUTS) Nocturia Osteoarthritis, hip, bilateral Vascular dementia Surgical History Excision, Lesion (02/27/16) History of right-sided carotid endarterectomy Status post bilateral total hip replacement Family History Other Unknown family medical history Social History Smoking/Tobacco Use Status: Former Tobacco Use Quit Date: 04/12/69 Smoking risk assessment performed?: Yes Alcohol Intake: never Drug use: Never Substance use type: does not use Household members: spouse 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 gender identity: male Seatbelt use: always Do you feel safe at home: Yes Do you feel safe in your relationship?: Yes Exam Const General: cooperative, healthy appearing, comfortable and no acute distress Orientation: alert and awake HENMT Head: normal to inspection, normocephalic and atraumatic Eyes General: appearance normal, both eyes and all related structures Conjunctivae: conjunctivae normal Neck Neck: normal visual inspection, trachea midline and supple Resp Effort & Inspection: normal respiratory effort and able to speak in complete sentences Cardio Rate: bradycardic Rhythm: regular rhythm Skin General skin exam: no rashes or lesions noted Neuro General: patient alert, patient awake, moves all extremities and no focal motor deficits Cognition: normal cognition Speech: speech normal Gait: normal gait Motor: muscle tone normal throughout Sensory Exam: no sensory deficits noted Extrem General: full ROM and capillary refill normal Other: Left lower extremity, anterior tibia region with a ML dressing intact. Removed dressing and a well approximated surgical incision in a vertical fashion is noted. No erythema, warmth, tenderness, hematoma. Along the very superior aspect of the laceration there is a slight ooze of blood which is very easily controlled with pressure. Upon removing pressure however the oozing continues. Normal capillary refill. Psych Appearance: grossly normal Mental Status: mental status grossly normal Course Vital Signs Vital signs: Vital Signs Temperature 36.8 C 11/02/20 11:14 Pulse 44 L 11/02/20 11:14 Respiratory Rate 16 11/02/20 11:14 Blood Pressure 151/60 H 11/02/20 11:14 Pulse Oximetry 97 11/02/20 11:14 Temperature 36.8 C 11/02/20 11:14 Temperature Source Skin 11/02/20 11:14 Pulse 44 L 11/02/20 11:14 Respiratory Rate 16 11/02/20 11:14 Respiratory Effort Non-Labored 11/02/20 11:20 Blood Pressure 151/60 H 11/02/20 11:14 Blood Pressure Position Sitting 11/02/20 11:14 Pulse Oximetry 97 11/02/20 11:14 Oxygen Delivery Method Room Air 11/02/20 11:14 Oxygen Flow Rate 0 11/02/20 11:14 Pain Level 0 11/02/20 11:14
[2020-11-02] MEDS: Cellulose,Oxidized 2X3 PKT 1 EACH MC ×2 (15:00)
== END 2020-11-02 13:18 | disposition home or self-care (01) ==
PROVIDERS: Emergency Provider Physician Assistant; PCP Internal Medicine
DX: L76.82 Other postprocedural complications of skin and subcutaneous tissue (principal); Z48.01 Encounter for change or removal of surgical wound dressing
CPT/HCPCS: 97607; 99282; 99283

== ENCOUNTER → 2020-11-07 09:15 | Outpatient (BNVA) | payer MEDICARE, SELFPAY | PROVIDERS: PCP Internal Medicine; Referring Provider Internal Medicine; Visit Provider Surgery | DX: Z48.817 Encounter for surgical aftercare following surgery on the skin and subcutaneous tissue (principal); C44.729 Squamous cell carcinoma of skin of left lower limb, including hip ==

== ENCOUNTER → 2020-11-15 11:09 | Outpatient (BNVA) | payer MEDICARE, SELFPAY | PROVIDERS: PCP Internal Medicine; Referring Provider Internal Medicine; Visit Provider Surgery | DX: Z48.02 Encounter for removal of sutures (principal) | CPT/HCPCS: 99212 ==

== ENCOUNTER → 2020-11-22 11:09 | Outpatient (BNVA) | payer MEDICARE, SELFPAY | PROVIDERS: PCP Internal Medicine; Referring Provider Internal Medicine; Visit Provider Surgery | DX: Z48.817 Encounter for surgical aftercare following surgery on the skin and subcutaneous tissue (principal); R60.9 Edema, unspecified | CPT/HCPCS: 99213 ==

== ENCOUNTER 2020-12-04 01:07 | Outpatient (CLI) | payer MEDICARE, SELFPAY ==
--- NOTE | 2020-12-04 | DI.US_ITS ---
Exam(s) US RENAL EXAM: US RENAL CLINICAL HISTORY: URINARY FREQUENCY, R35.0, PRE AND POST VOID TECHNIQUE: Ultrasound of both kidneys performed using standard protocol. COMPARISON: CT CT CHEST PE CTA from 08/18/2018 FINDINGS: RIGHT KIDNEY: Measures 12.3 cm in length. There are few cysts in the right kidney noted. The largest of these is i n the inferior pole and measures 6 x 7 cm. There is a smaller cyst measuring 1 by 1 cm in the latera l cortex of the right kidney. No intrarenal calculi nor hydronephrosis.No solid lesions LEFT KIDNEY: Measures 9.8 cm in length. There is a cyst in the superior pole measuring 4 x 3.7 x 3 cm. No solid l esions seen in kidney. Normal cortical thickness and corticomedullary differentiation no intrarenal c alculi nor hydonephrosis. URINARY BLADDER: Prevoid volume is 114 cc Patient was apparently not able to void and therefore was not able to determine postvoid bladder volu me. No evidence of bladder mass nor diverticuli. Ureterovesical jets: Left ureterovesical jet was identified. Right ureterovesical jet was not identif ied. IMPRESSION: 1. Bilateral renal cysts as described above. The largest is in the inferior pole the right kidney an d measures 6 x 7 cm. There are no solid renal masses. No calculi in the kidneys and no hydronephrosis . 2. Urinary bladder postvoid volume was not able to be determined, as apparently the patient was not able to void. No obvious mass evident in the urinary bladder. DATA REPOSITORY:
== END 2020-12-04 01:27 ==
PROVIDERS: PCP Internal Medicine; Visit Provider Internal Medicine
DX: R35.0 Frequency of micturition (principal); Q61.02 Congenital multiple renal cysts
CPT/HCPCS: 76770

== ENCOUNTER → 2020-12-06 08:47 | Outpatient (BNVA) | payer MEDICARE, SELFPAY | PROVIDERS: PCP Internal Medicine; Referring Provider Internal Medicine; Visit Provider Surgery | DX: Z48.89 Encounter for other specified surgical aftercare (principal); R60.0 Localized edema; R21 Rash and other nonspecific skin eruption | CPT/HCPCS: 29580; 99212; 99213 ==

== ENCOUNTER → 2020-12-09 10:52 | Outpatient (BNVA) | payer MEDICARE, SELFPAY | PROVIDERS: PCP Internal Medicine; Referring Provider Internal Medicine; Visit Provider Physical Therapy Assistant | DX: Z48.817 Encounter for surgical aftercare following surgery on the skin and subcutaneous tissue (principal); R60.0 Localized edema | CPT/HCPCS: 29581; 97597 ==

== ENCOUNTER → 2020-12-13 10:28 | Outpatient (BNVA) | payer MEDICARE, SELFPAY | PROVIDERS: PCP Internal Medicine; Referring Provider Internal Medicine; Visit Provider Surgery | DX: R60.0 Localized edema (principal); L53.8 Other specified erythematous conditions; Z51.89 Encounter for other specified aftercare | CPT/HCPCS: 29581 ==

== ENCOUNTER → 2020-12-20 09:06 | Outpatient (BNVA) | payer MEDICARE, SELFPAY | PROVIDERS: PCP Internal Medicine; Referring Provider Internal Medicine; Visit Provider Surgery | DX: Z48.817 Encounter for surgical aftercare following surgery on the skin and subcutaneous tissue (principal); L53.8 Other specified erythematous conditions | CPT/HCPCS: 29581 ==

== ENCOUNTER → 2020-12-27 10:32 | Outpatient (BNVA) | payer MEDICARE, SELFPAY | PROVIDERS: PCP Internal Medicine; Referring Provider Internal Medicine; Visit Provider Surgery | DX: S81.801D Unspecified open wound, right lower leg, subsequent encounter (principal); T81.89XD Other complications of procedures, not elsewhere classified, subsequent encounter | CPT/HCPCS: 11042 ==

== ENCOUNTER → 2021-01-03 10:14 | Outpatient (BNVA) | payer MEDICARE, SELFPAY | PROVIDERS: PCP Internal Medicine; Referring Provider Internal Medicine; Visit Provider Surgery | DX: Z48.817 Encounter for surgical aftercare following surgery on the skin and subcutaneous tissue (principal); L53.8 Other specified erythematous conditions | CPT/HCPCS: 29580 ==

== ENCOUNTER → 2021-01-10 09:18 | Outpatient (BNVA) | payer MEDICARE, SELFPAY | PROVIDERS: PCP Internal Medicine; Referring Provider Internal Medicine; Visit Provider Surgery | DX: Z48.817 Encounter for surgical aftercare following surgery on the skin and subcutaneous tissue (principal); L53.8 Other specified erythematous conditions | CPT/HCPCS: 29580; 99212 ==

== ENCOUNTER → 2021-01-14 10:15 | Outpatient (BNVA) | payer MEDICARE, SELFPAY | PROVIDERS: PCP Internal Medicine; Referring Provider Internal Medicine; Visit Provider Urology | DX: R21 Rash and other nonspecific skin eruption (principal); R35.0 Frequency of micturition; K59.09 Other constipation | CPT/HCPCS: 99213 ==

== ENCOUNTER → 2021-01-17 13:59 | Outpatient (BNVA) | payer MEDICARE, SELFPAY | PROVIDERS: PCP Internal Medicine; Referring Provider Internal Medicine; Visit Provider Physical Therapy Assistant | DX: R60.0 Localized edema (principal); L53.8 Other specified erythematous conditions | CPT/HCPCS: 29580 ==

== ENCOUNTER → 2021-01-24 10:26 | Outpatient (BNVA) | payer MEDICARE, SELFPAY | PROVIDERS: PCP Internal Medicine; Referring Provider Internal Medicine; Visit Provider Surgery | DX: R60.0 Localized edema (principal); M79.651 Pain in right thigh | CPT/HCPCS: 99212 ==

== ENCOUNTER 2021-03-03 17:12 | Outpatient (REF) | payer MEDICARE, SELFPAY ==
[2021-03-03 21:10] LABS: Anion Gap 6.6 mmol/L (3-11); BUN 33 mg/dL (7-18); CO2 28.4 mmol/L (21.0-32.0); CREATININE 1.4 mg/dL (0.70-1.30); Chloride 106 mmol/L (98-107); Estimated GFR 48.16 (mL/min/1.73m2); Glucose 118 mg/dL (74-106); Potassium 4.2 mmol/L (3.5-5.1); Sodium 141 mmol/L (136-145)
== END 2021-03-03 17:13 | disposition home or self-care (01) ==
LOC: NCHCN 17:12
PROVIDERS: PCP Internal Medicine; Visit Provider Internal Medicine
DX: I10 Essential (primary) hypertension (principal); E83.52 Hypercalcemia
CPT/HCPCS: 80048

== ENCOUNTER → 2021-04-25 10:36 | Outpatient (BNVA) | payer MEDICARE, SELFPAY | PROVIDERS: PCP Internal Medicine; Referring Provider Internal Medicine; Visit Provider Physical Therapy Assistant | DX: L98.9 Disorder of the skin and subcutaneous tissue, unspecified (principal) | CPT/HCPCS: 99213 ==

== ENCOUNTER 2021-05-12 15:18 | Outpatient (REF) | payer MEDICARE, SELFPAY ==
[2021-05-12 21:24] LABS: HCT 49.6 % (40.0-50.0); HGB 15.6 g/dL (13.5-17.5); MCH 30.5 pg (27.0-33.0); MCHC 31.5 % (32.0-36.0); MCV 97.1 fL (80-95); MPV 11.8 fL (8.0-11.0); Platelet Count 144 10^3/uL (130-400); RBC 5.11 10^6/uL (4.36-5.78); RDW-SD 43.8 fL; WBC 7.72 10^3/uL (4.4-10.8)
[2021-05-12 21:48] LABS: ALT 26 U/L (16-63); AST 22 U/L (15-37); Albumin 4.1 g/dL (3.4-5.0); Alkaline Phosphatase 76 U/L (46-116); Anion Gap 6.1 mmol/L (3-11); BUN 31 mg/dL (7-18); Bilirubin, Total 0.6 mg/dL (0.2-1.0); CO2 28.9 mmol/L (21.0-32.0); CREATININE 1.6 mg/dL (0.70-1.30); Calcium 10.5 mg/dL (8.5-10.1); Chloride 103 mmol/L (98-107); Estimated GFR 41.29 (mL/min/1.73m2); Glucose 78 mg/dL (74-106); NT-proBNP 192 pg/mL (<300); Potassium 4.3 mmol/L (3.5-5.1); Sodium 138 mmol/L (136-145); TSH 2.06 uIU/mL (0.36-3.74)
== END 2021-05-12 15:19 | disposition home or self-care (01) ==
LOC: NCHCN 15:18
PROVIDERS: PCP Internal Medicine; Visit Provider Internal Medicine
DX: R40.0 Somnolence (principal); L82.1 Other seborrheic keratosis; F01.50 Vascular dementia, unspecified severity, without behavioral disturbance, psychotic disturbance, mood disturbance, and anxiety; I10 Essential (primary) hypertension; R60.9 Edema, unspecified; R00.1 Bradycardia, unspecified; R06.02 Shortness of breath
CPT/HCPCS: 80053; 85027; 83880; 84443

== ENCOUNTER 2021-05-19 04:24 | Outpatient (CLI) | payer MEDICARE, SELFPAY ==
--- NOTE | 2021-06-05 09:37 | W.CARDEVENT ---
Date of service: 06/05/21 Time of Service: 09:37 Cardiac Event Recorder Referring Provider:: Chau Arshad Indications:: Bradycardia Cardiac Event Note: This is a 14-day vehicle monitor technician ordered for bradycardia Predominant rhythm was sinus with an average heart rate of 72. Minimum was 52, maximum 110 There were occasional atrial premature beats. A total of 8 self-limited atrial runs occurred the longest of which was 7 beats in duration There were frequent ventricular ectopic beats, comprising 12.67% of total. There were 7 ventricular triplets There was no atrial fibrillation, no high-grade AV block, no pauses greater than 3 seconds Patient symptoms corresponded to atrial and ventricular ectopic beat
== END 2021-05-19 04:25 | disposition home or self-care (01) ==
PROVIDERS: PCP Internal Medicine; Visit Provider Internal Medicine
DX: R00.1 Bradycardia, unspecified (principal)
CPT/HCPCS: 93246

== ENCOUNTER 2021-06-05 09:37 | Outpatient (CLI) | payer MEDICARE, SELFPAY | END 2021-06-05 09:38 | LOC: CARDO 06-06 10:27 | PROVIDERS: PCP Internal Medicine; Referring Provider Internal Medicine; Visit Provider Internal Medicine Cardiovascular Disease | DX: R00.1 Bradycardia, unspecified (principal); I49.1 Atrial premature depolarization; I49.3 Ventricular premature depolarization | CPT/HCPCS: 93248 ==

== ENCOUNTER 2021-09-16 12:23 | Outpatient (REF) | payer MEDICARE, SELFPAY ==
[2021-09-16 14:34] LABS: Anion Gap 9.3 mmol/L (3-11); BUN 23 mg/dL (7-18); CO2 27.7 mmol/L (21.0-32.0); CREATININE 1.3 mg/dL (0.70-1.30); Calcium 10.1 mg/dL (8.5-10.1); Chloride 105 mmol/L (98-107); Estimated GFR 52.47 (mL/min/1.73m2); Glucose 112 mg/dL (74-106); Potassium 4.2 mmol/L (3.5-5.1); Sodium 142 mmol/L (136-145)
== END 2021-09-16 12:24 | disposition home or self-care (01) ==
LOC: NCHCN 12:23
PROVIDERS: PCP Internal Medicine; Visit Provider Internal Medicine
DX: I10 Essential (primary) hypertension (principal); E21.0 Primary hyperparathyroidism; I87.2 Venous insufficiency (chronic) (peripheral); F01.50 Vascular dementia, unspecified severity, without behavioral disturbance, psychotic disturbance, mood disturbance, and anxiety
CPT/HCPCS: 80048

== ENCOUNTER → 2021-10-17 10:44 | Outpatient (CLI) | payer MEDICARE, SELFPAY ==
--- NOTE | 2021-10-17 10:30 | DI.RAD_ITS ---
Exam(s) XR ABDOMEN FLAT PLATE EXAM: 2D digital imaging was performed. CLINICAL HISTORY: ABDOMINAL BLOATING, DISTENSION--R14.0. COMPARISON: No exams were available for comparison TECHNIQUE: Supine views of the abdomen performed. FINDINGS: BOWEL GAS PATTERN: Stomach and small bowel nondistended. Large quantity of stool is seen throughout the colon. CALCIFICATIONS: No radiopaque calcifications are visible. The kidneys are mainly obscured by overlyi ng fecal material.. OSSEOUS STRUCTURES: Bilateral hip prostheses. Degenerative changes in the spine. OTHER FINDINGS: None. IMPRESSION: 1. Large quantity of fecal material. 2. No radiopaque calculi visible.. DATA REPOSITORY: RADIATION DOSE DELIVERED:
--- OUTSIDE RECORDS SUMMARY | 2021-10-17 10:50 | XMS_ITS | Clinical Summary ---
:1935 Author Organization [facility] Address [address] [place] [address] Care Team Providers Name Role Phone Chau Arshad MD Primary Care Provider Social History Tobacco Use Types Packs/Day Years Used Date Never Assessed Sex Assigned at Date Recorded Not on file Plan of Treatment Health Maintenance Due Date Last Done Comments COVID-19 Vaccine (#1) 02/06/1941 Fall Risk Screening 02/06/2001 Insurance Payer Benefit Plan / Subscriber ID Effective Dates Phone Addre ss Type Group MEDICARE MEDICARE A/B [id number] 2002-Present [id number] [place] [phone] (Work) [id number] Care Teams Nsh Teacher Relationship Specialty Start Date End Date Chau Arshad MD PCP - General 03/02/16 [address] [place], [place] [phone]
--- OUTSIDE RECORDS SUMMARY | 2021-10-17 10:50 | XMS_ITS | Encounter Summary ---
:[address] [facility] Address [address] [place] [address] Care Team Providers Name Role Phone Chau Arshad MD Primary Care Provider Encounter Details Date Type Department Care Team Description 10/12/2020 Lab Requisition [facility] Outr Resulting Lab, Pathology & Laboratory Provider [facility] [address] [id number] Social History Tobacco Use Types Packs/Day Years Used Date Never Assessed Sex Assigned at Date Recorded Not on file documented as of this encounter Plan of Treatment Not on filedocumented as of this encounter Procedures Procedure Name Priority Date/Time Associated Diagnosis Comme nts PTH INTACT Routine 10/11/2020 12:30 EDT Results for this procedure are i n the results section . documented in this encounter Results (ABNORMAL) PTH INTACT (10/11/2020 12:30 EDT) Pathologist Sig nature Intact PTH 109 (H) 19 - 88 pg/mL [facility] Specimen Blood - Venous blood (substance) Performing Organization Address City/State/ZIP Code Phon e Number [facility] [address] [place] [address] SERVICES documented in this encounter Visit Diagnoses Not on filedocumented in this encounter Care Teams Hand Cloth Cutter Relationship Specialty Start Date End Date Chau Arshad MD PCP - General 03/02/16 [address] [place], [place] [phone] documented as of this encounter
--- OUTSIDE RECORDS SUMMARY | 2021-10-17 10:50 | XMS_ITS | Encounter Summary ---
:1935 Author Organization [facility] Address [address] [place] [address] Care Team Providers Name Role Phone Chau Arshad MD Primary Care Provider Encounter Details Date Type Department Care Team Description 10/31/2020 Lab Requisition [facility] Saad Guerrero er of the skin Pathology & MD Yisel and subcutaneous Laboratory Medicine [address] [facility] tissue, unspecified - [place], [place] [address] [facility] [address] [place], [place] [id number] Social History Tobacco Use Types Packs/Day Years Used Date Never Assessed Sex Assigned at Date Recorded Not on file documented as of this encounter Plan of Treatment Not on filedocumented as of this encounter Procedures Procedure Name Priority Date/Time Associated Diagnosis Comme nts SURGICAL PATHOLOGY Today 10/30/2020 12:12 Disorder of the sk in Results for this EDT and subcutaneous procedure a re in tissue, unspecified the resu lts section. documented in this encounter Results SURGICAL PATHOLOGY (10/30/2020 12:12 EDT) Note to Patient The following [facility] pathology results have CENTER been interpreted by your LABORATORY pathologist and may be SERVICES available to you before your health provider has had the opportunity to review them. Please allow time for your provider to receive these results and explore management options, if applicable. Final Diagnosis A. SKIN OF COTA, LEFT, EXCISION: [facility] - Squamous cell carcinoma, well differentiated, invasi ve. CENTER - Margins negative for squamous cell carcinoma. LABORATORY SERVICES Attestation By the signature below, [facility] Elec tronically the attending physician CENTER sign ed by Galileo, certifies that they have LABORATORY Yasmeen prema Mohan MD on 1) personally conducted SERVICES 11/01 at 1154 a gross and/or microscopic examination of the described specimen(s), and/or personally interpreted the results of laboratory testing of the described specimen(s), and 2) personally rendered or confirmed the above diagnosis. Microscopic The stratum corneum is [facility] Description thickened by CENTER orthohyperkeratosis and LABORATORY parakeratosis. Eman[place] SERVICES from the epidermis and extending into the dermis is a proliferation of atypical squamous epithelium. The proliferation consists of variably sized, irregular islands associated with dermal desmoplasia. The cells have an increased nuclear-cytoplasmic ratio and nuclear pleomorphism. Intercellular bridge and keratin ilene formation are evident. Clinical History Skin lesion left cota, [facility] single suture is CENTER superior and double LABORATORY suture is medial SERVICES Gross Description A. [facility] Received in formalin lizz d with proper patient identification (initials C, W) and left cota skin lesion single suture-superior double is medial is an oriented elliptical skin, 7.2 x 3.0 cm and exci CENTER sed to a depth of 1.0 cm. Th e central skin surface shows a raised keratotic nodule, 1.8 x 1.5 x 1.5 cm. The majority of the surrounding skin with the exception of the superior tip is flaky opaque avila-w LABORAT ORY laila. The skin surface at th e tip is pale benitez. The margins are inked with blue representing medial and black representing lateral. The specimen is serially sectioned from superior to inferior and entirely submitted as follows: SERVICES BLOCK CALDERON A1- superior tip, reverse en face A2-A15- 22 central sections A16- inferior tip, reverse en face STEVEN DAVILA(ASCP) 10/31/2020 10:41 Performing Lab [facility] Scanned Images [facility] Specimen Tissue - Skin (tissue) specimen (specime n) Performing Organization Address City/State/ZIP Code Phon e Number [facility] [address] [place] [address] SERVICES documented in this encounter Visit Diagnoses Diagnosis Disorder of the skin and subcutaneous ti ssue, unspecified documented in this encounter Care Teams Lower School Music Teacher Relationship Specialty Start Date End Date Chau Arshad MD PCP - General 03/02/[address] [place] [id number] documented as of this encounter
--- OUTSIDE RECORDS SUMMARY | 2021-10-17 10:50 | XMS_ITS | Encounter Summary ---
:1935 Author Organization [facility] Address [address] [place] [address] Care Team Providers Name Role Phone Chau Arshad MD Primary Care Provider Encounter Details Date Type Department Care Team Description 07/16/2020 Lab Requisition [facility] Outr Resulting Lab, Pathology & Laboratory Provider [facility] [address] [place] [address] Social History Tobacco Use Types Packs/Day Years Used Date Never Assessed Sex Assigned at Date Recorded Not on file documented as of this encounter Plan of Treatment Not on filedocumented as of this encounter Procedures Procedure Name Priority Date/Time Associated Comments Diagnosis SPEP, INCLUDES Today 07/16/2020 10:35 Results f or this QUANTITATION OF EDT procedure ar e in MONOCLONAL SPIKE the results PERFORMABLE section. HOLD SST Today 07/16/2020 10:35 Results for this EDT procedure are i n the results section. PTH INTACT Today 07/16/2020 10:35 Results for this EDT procedure are i n the results section. SPEP, INCLUDES Today 07/16/2020 10:35 Results f or this QUANTITATION OF EDT procedure ar e in MONOCLONAL SPIKE the results section. PROTEIN, TOTAL Today 07/16/2020 10:35 EDT PSA TOTAL, DIAGNOSTIC Today 07/16/2020 10:35 Re sults for this EDT procedure are i n the results section. documented in this encounter Results HOLD SST (07/16/2020 10:35 EDT) Pathologist Sig nature Hold Hold [facility] Specimen Blood - Venous blood (substance) Performing Organization Address City/State/ZIP Code Phon e Number [facility] [address] [place] [address] SERVICES SPEP, INCLUDES QUANTITATION OF MONOCLONAL SPIKE PERFORMABLE (07/16/2020 10:35 EDT) Albumin % 61.9 55.8 - 66.1 % [facility] Alpha-1 % 4.5 2.9 - 4.9 % [facility] Alpha-2 % 9.1 7.1 - 11.8 % [facility] Beta % 10.4 8.4 - 13.1 % [facility] Gamma % 14.1 11.1 - 18.8 % [facility] SPEP Comment No apparent [facility] monoclonal protein LABORATORY SERVICES seen on serum electrophoresisComm ent: See scanned/supplementa ry report. Total Protein 7.1 6.3 - 8.2 g/dL [facility] Specimen Blood - Venous blood (substance) Narrative This result has an attachment that is no t available. Performing Organization Address City/State/ZIP Code Phon e Number [facility] [address] [place] [address] SERVICES PROTEIN, TOTAL (07/16/2020 10:35 EDT) Specimen Blood - Venous blood (substance) Performing Organization Address City/State/ZIP Code Phon e Number [facility] [address] [place] [address] SERVICES (ABNORMAL) PTH INTACT (07/16/2020 10:35 EDT) Pathologist Sig nature Intact PTH 156 (H) 19 - 88 pg/mL [facility] Specimen Blood - Venous blood (substance) Performing Organization Address City/[facility]/ZIP Code Phon e Number [facility] [address] [place] [address] SERVICES PSA TOTAL, DIAGNOSTIC (07/16/2020 10:35 EDT) Pathologist Sig nature PSA 3.5 0.0 - 6.5 ng/mL [facility] Specimen Blood - Venous blood (substance) Narrative [facility] - 07/16/2020 17:11 EDT NOTE: Serum PSA concentration should not be in terpreted as absolute evidence for the presence or absence of malignant disease. Assayed on Siemens ADVIA Centaur XPT usi ng chemiluminescent technology.??Values obtained by using different assay methods cannot be used interchangeably. Performing Organization Address City/State/ZIP Code Phon e Number [facility] [address] [place] [address] SERVICES documented in this encounter Visit Diagnoses Not on filedocumented in this encounter Care Teams Blending Tank Tender Relationship Specialty Start Date End Date Chau Arshad MD PCP - General 03/02/16 [address] [place], [place] [phone] documented as of this encounter
--- OUTSIDE RECORDS SUMMARY | 2021-10-17 10:51 | XMS_ITS | Encounter Summary ---
:1935 Author Organization [facility] [place] [address] Care Team Providers Name Role Phone Chau Asrhad MD Primary Care Provider Reason for Referral Diagnostic Test (Routine) - Closed Specialty Diagnoses / Procedures Referred By Contact Refer red To Contact Radiology Diagnoses Bilateral carotid artery stenosis [facility] [address] [address] Scan Procedures [place] [address] [place] [address] Phone: Referral ID Status Reason Start Date Expiration Date Visits V isits Requested Authorized Closed Specialty 08/28/2016 08/28/2017 1 1 Service Requested Reason for Visit Diagnostic Test (Routine) - Closed Specialty Diagnoses / Procedures Referred By Contact Refer red To Contact Radiology Diagnoses Bilateral carotid artery stenosis [facility] [address] [place] [address] [place] [address] [place] [address] Phone: Referral ID Status Reason Start Date Expiration Date Visits V isits Requested Authorized Closed Specialty 08/28/2016 08/28/2017 1 1 Service Requested Encounter Details Date Type Department Care Team Description 09/25/2016 Hospital Encounter Radiology [place] [facility] [place] Bilateral carotid [facility] artery stenosis [facility] [id number] VASCULAR SURGERY [phone] [place], [place] [address] Social History Tobacco Use Types Packs/Day Years Used Date Never Smoker Alcohol Habits Answer Date Recorded How often do you have a drink containing Not asked alcohol? How many drinks containing alcohol do you Not asked have on a typical day when you are drinking? How often do you have six or more drinks Not asked on one occasion? Comment: stopped drinking 30 years ago 09/25/2016 Sex Assigned at Date Recorded Not on file documented as of this encounter Medications at Time of Discharge Medication Sig Dispensed Refills Start Date End Date chlorthalidone (HYGROTEN) Take 25 mg by mouth 0 25 mg Tablet daily. aspirin 81 mg Tablet, Take 81 mg by mouth 0 Delayed Release (E.C.) daily. amoxicillin (AMOXIL) 500 mg Take 500 mg by mouth 0 Capsule as needed (Take 4 capsules one hour prior to dental appointment). lactobacillus rhamnosus, Take 1 capsule by 0 GG, (CULTURELLE) 10 billion mouth as needed cell Capsule (take with antibiotics). ibuprofen (ADVIL;MOTRIN) Take 200 mg by mouth 0 200 mg Tablet every 6 hours as needed for Pain. documented as of this encounter Progress Notes Julia Landin RN - 09/22/2016 2:40 PM EDT Vascular and Interventional Radiology Sodium Bicarbonate Protocol Administration Notes Name: Asim Cox Age: 81 y.o. Sex; Male Date of : 1935 PCP Chau Arshad MD [phone] Time Treatment started: Time Treatment ended: Reason for visit: CT Scan with Contrast. Need for bicarb Protocol Subjective: Asim Cox offers no complaints. Objective: Lab Data: No results found for: BUN, CREATININE (scanned docs from [facility] on 08/17/16: creatinine 1.41, GFR 48.36) Pain Level: If > 5, Interventions and Effectiveness: IV Access: Gauge: Blood return: Any signs or symptoms of infection or extravasations 1 hour after initiation: 2 hours after initiation: 3 hours after initiation: 4 hours after initiation: IV flushed with : 10 ml normal saline IV discontinued: Treatment: 1 liter 5% Dextrose with 150 meq Sodium Bicarbonate initiated at rate of ml/hr for 1 hour, then ml hour for hours. Reaction: Assessment: Asim Cox was awake, alert and tolerated the treatment well. Plan: Patient will follow up with referring physician. documented in this encounter Plan of Treatment Not on filedocumented as of this encounter Procedures Procedure Name Priority Date/Time Associated Diagnosis Comme nts CT CAROTIDS W Routine 09/25/2016 11:08 AM Bilateral carotid Re sults for this CONTRAST EDT artery stenosis procedure ar e in the results section. documented in this encounter Results CT Carotids w Contrast (09/25/2016 11:08 AM EDT) Anatomical Region Laterality Modality Neck, Head X-Ray Angiography Specimen (Source) Anatomical Location Collection Method / Collectio n Time Received Time / Laterality Volume Impressions 09/25/2016 5:26 PM EDT 1. ??Severe stenosis of the proximal right internal carotid artery with string sign. 2. ??Less than fifty percent narrowing o f the proximal left internal carotid artery. 3. ??Focal moderate stenosis within the right intradural vertebral artery. 4. ??2 cm hypodense left thyroid nodule, consider ultrasound and fine-needle aspiration if clinically indicated. I have personally reviewed the image(s) and the residents interpretation and agree with the findings, Muriel Ayala at 09/25/2016 5:26 PM Narrative 09/25/2016 5:26 PM EDT EXAMINATION: CT CAROTIDS W CONTRAST CLINICAL HISTORY: carotid stenosis TECHNIQUE: CT angiogram of the carotids and [place] was performed after the intravenous administration of 65 cc Omnipaque 350, MIP reconstructions were reviewed after being processed on an ind ep[employer]oChord workstation COMPARISON: None FINDINGS: Aorta: There is conventional anatomy of the aor tic arch which demonstrates mild calcified atheromatous disease. No hemod ynamically significant stenosis of the origins of the great vessels. Carotid arteries: Right carotid: The right common carotid artery is normal in course and caliber until the level of the carotid bulb wher e there is a fibrofatty and calcified atheromatous plaque. There is a severe f ocal stenosis of the proximal right internal carotid artery with a thin stri ng of contrast extending to the distal normal lumen. The remaining cervical car otid artery is normal in course and caliber. Mild atherosclerotic changes wi thin the cavernous and supraclinoid carotid artery. Left carotid: The left common carotid ar renee is normal in course and caliber until the level of the carotid, where th ere is plaque contributing to less than 50% narrowing at this level. ??The remai eva cervical carotid artery is normal in course and caliber. Mild atherosclerotic changes within the cavernous and supraclinoid carotid artery. Vertebral arteries: Cervical vertebral a rteries are normal in course and caliber. There is a focal stenosis withi n the right intradural vertebral artery, which is narrowed to at least moderate a degree. Left intradural vertebral artery is normal in course and caliber. Basilar artery is normal in course and caliber. Visualized [place] is normal. N o aneurysm or severe stenosis is identified. Other: Coronary artery calcifications. 2 cm hypoattenuating left thyroid nodule. Procedure Note Muriel Ayala MD - 09/25/2016Form atting of this note might be different from the original. EXAMINATION: CT CAROTIDS W CONTRAST CLINICAL HISTORY: carotid stenosis TECHNIQUE: CT angiogram of the carotids and [place] was performed after the intravenous administration of 65 cc Omnipaque 350, MIP reconstructions were reviewed after being processed on an ind [employer]ord workstation COMPARISON: None FINDINGS: Aorta: There is conventional anatomy of the aor tic arch which demonstrates mild calcified atheromatous disease. No hemod ynamically significant stenosis of the origins of the great vessels. Carotid arteries: Right carotid: The right common carotid artery is normal in course and caliber until the level of the carotid bulb wher e there is a fibrofatty and calcified atheromatous plaque. There is a severe f ocal stenosis of the proximal right internal carotid artery with a thin stri ng of contrast extending to the distal normal lumen. The remaining cervical car otid artery is normal in course and caliber. Mild atherosclerotic changes wi thin the cavernous and supraclinoid carotid artery. Left carotid: The left common carotid ar renee is normal in course and caliber until the level of the carotid, where th ere is plaque contributing to less than 50% narrowing at this level. The remaini ng cervical carotid artery is normal in course and caliber. Mild atherosclerotic changes within the cavernous and supraclinoid carotid artery. Vertebral arteries: Cervical vertebral a rteries are normal in course and caliber. There is a focal stenosis withi n the right intradural vertebral artery, which is narrowed to at least moderate a degree. Left intradural vertebral artery is normal in course and caliber. Basilar artery is normal in course and caliber. Visualized [place] is normal. N o aneurysm or severe stenosis is identified. Other: Coronary artery calcifications. 2 cm hypoattenuating left thyroid nodule. IMPRESSION 1. Severe stenosis of the proximal right internal carotid artery with string sign. 2. Less than fifty percent narrowing of the proximal left internal carotid artery. 3. Focal moderate stenosis within the ri ght intradural vertebral artery. 4. 2 cm hypodense left thyroid nodule, c onsider ultrasound and fine-needle aspiration if clinically indicated. I have personally reviewed the image(s) and the residents interpretation and agree with the findings, Muriel Ayala at 09/25/2016 5:26 PM Lucille Rivera MD IMG CT ORDERABLES documented in this encounter Visit Diagnoses Diagnosis Bilateral carotid artery stenosis Occlusion and stenosis of multiple and b ilateral precerebral arteries without mention of cerebral infarction documented in this encounter Administered Medications Inactive Administered Medications - up to 3 most recent administrations Medication Order MAR Action Action Date Dose Rate Site sodium bicarbonate 150 New Bag 09/25/2016 10:00 AM 1.005 mL/kg/hr 82 mL/hr mEq in dextrose 5% 1000 EDT mL infusion 3 mL/kg/hr ? 81.6 kg (244.8 mL/hr), Intravenous, CONTINUOUS, Starting on 09/25/16 at 0715, Until 09/26/16 at 0435, Start at 3 mL/kg/hr for 1 hour, then decrease to 1 mL/kg/hr for 2 hours after contrast administration., Angio/IR (Day of Procedure) New Bag 09/25/2016 9:00 AM EDT 3 mL/kg/hr 244.8 mL/hr documented in this encounter Care Teams Material Clerk Relationship Specialty Start Date End Date Chau Arshad MD PCP - General Internal Medicine 08/21/16 [address] [place] [address] documented as of this encounter
--- OUTSIDE RECORDS SUMMARY | 2021-10-17 10:51 | XMS_ITS | Clinical Summary ---
:1935 Author Organization [facility] [place] [address] Care Team Providers Name Role Phone Chau Arshad MD Primary Care Provider Allergies Active Allergy Reactions Severity Noted Date Comments Clindamycin Low 08/21/2016 Medications Medication Sig Dispensed Refills Start Date End Date Status aspirin 81 mg Tablet, Take 81 mg by 0 Active Delayed Release (E.C.) mouth daily. amoxicillin (AMOXIL) Take 500 mg by 0 Active 500 mg Capsule mouth as needed (Take 4 capsules one hour prior to dental appointment). lactobacillus Take 1 capsule by 0 Active rhamnosus, GG, mouth as needed (CULTURELLE) 10 (take with billion cell Capsule antibiotics). ibuprofen Take 200 mg by 0 Activ e (ADVIL;MOTRIN) 200 mg mouth every 6 Tablet hours as needed for Pain. multivitamin with Take 1 tablet by 0 Active minerals Tablet mouth daily. chlorthalidone Take 25 mg by 0 A ctive (HYGROTEN) 25 mg mouth daily. Tablet alfuzosin (UROXATRAL) TAKE ONE TABLET BY 0 1 Active 10 mg Tablet Sustained MOUTH EVERY DAY Release 24 hr AFTER THE SAME MEAL EACH DAY TO BE USED INSTEAD OF TAMSULOSIN clopidogreL (Plavix) TAKE ONE TABLET BY 0 08/12/2020 Active 75 mg Tablet MOUTH EVERY DAY clotrimazole APPLY TO AFFECTED 0 07/18/2020 Active (LOTRIMIN) 1 % Cream AREA S TWO TIMES A DAY FOR 14 DAYS loteprednol (LOTEMAX) INSTILL ONE DROP 0 10/01/2020 Active 0.5 % Drops, IN EACH EYE FOUR Suspension TIMES A DAY memantine (Namenda) 5 TAKE ONE TABLET BY 0 1 Active mg Tablet MOUTH TWICE A DAY polyethylene glycoL by NOT APPLICABLE 0 01/27/2018 Active (Miralax) 17 gram/dose route. Powder potassium chloride TAKE ONE CAPSULE 0 09/11/2020 Active (MICRO-K) 10 mEq BY MOUTH EVERY Capsule, Sustained MORNING Release rosuvastatin (Crestor) TAKE ONE TABLET BY 0 07/11/19 21 Active 10 mg Tablet MOUTH EVERY DAY triamcinolone APPLY TO AFFECTED 0 07/09/2020 Active (KENALOG) 0.1 % Cream AREA S TWO TIMES A DAY NEEDED FOR ITCHINESS FISH OIL-DHA-EPA ORAL Take by mouth 2 0 Active times daily. cholecalciferol, Take 1,000 Units 0 Active Vitamin D3, (Vitamin by mouth daily. D3) 1,000 unit Tablet fluticasone propionate 1 spray as needed 0 Active (FLONASE) 50 for Rhinitis. mcg/actuation Craig, Suspension Active Problems Problem Noted Date Carotid stenosis, right 10/21/2016 Overview: 11/09/2016: Right carotid endarterectomy Altered mental status 08/21/2016 Vertigo 08/21/2016 Carotid artery disease 08/21/2016 Overview: No flow in the distal portion of the R I CA and moderate stenosis 50-60% In the left internal carotid artery Male erectile dysfunction 08/21/2016 Venous insufficiency of leg 08/21/2016 AK (actinic keratosis) 08/21/2016 Hypertension 08/21/2016 BPH (benign prostatic hyperplasia) 08/21/2016 Autonomic sensory neuropathy 08/21/2016 Hyperlipidemia 08/21/2016 OA (osteoarthritis) 08/21/2016 Immunizations Name Administration Dates Next Due Influenza PF, Split 09/25/2016 (Deferred: Patient Refused) Social History Tobacco Use Types Packs/Day Years Used Date Never Smoker Smokeless Tobacco: Never Used Alcohol Use Standard Drinks/Week Comments No 0 (1 standard drink = 0.6 oz pure alcoho l) stopped drinking 30 years ago Alcohol Habits Answer Date Recorded How often do you have a drink containing Not asked alcohol? How many drinks containing alcohol do you Not asked have on a typical day when you are drinking? How often do you have six or more drinks Not asked on one occasion? Comment: stopped drinking 30 years ago 09/25/2016 Sex Assigned at Date Recorded Not on file Last Filed Vital Signs Vital Sign Reading Time Taken Comments Blood Pressure 99/55 10/07/2020 10:38 AM EDT Pulse 64 10/07/2020 10:38 AM EDT Temperature 36.2 ??C (97.2 ??F) 10/07/2020 10:38 AM EDT Respiratory Rate 18 12/17/2016 11:21 AM EDT Oxygen Saturation 95% 11/10/2016 10:01 AM EDT Inhaled Oxygen Concentration - - Weight 82.6 kg (182 lb) 10/07/2020 10:38 AM EDT Height 170.2 cm (5' 7) 10/07/2020 10:38 AM EDT Body Mass Index 28.51 10/07/2020 10:38 AM EDT Plan of Treatment Health Maintenance Due Date Last Done Comments Covid-19 Vaccine (#1) 02/06/1941 Tdap adult 02/06/1955 Tetanus vaccine 02/06/1955 Zoster vaccine (1 of 2) 02/06/1986 Advance Directive 02/06/1991 Pneumoccocal Vaccine: 65+ (1 - PCV) 02/06/2001 Influenza (Flu) vaccine (1 of 1 - Influenza standard 12/11/2021 series) Medical Devices Implanted Type Area Tablet Technician Device Shelf Model / Identifier Expiration Serial / Date Lot Patch,Biol,Xenosure,.8x8cm ([id number]) - [id number] IMPLANTS Right: Leim[employer]re 06/09/2022 [id number] / Implanted: Qty: 1 on 11/09/2016 by Lucille Rivera M D at [facility] [employer] - / [id number] Insurance Payer Benefit Plan / Subscriber ID Effective Dates Phone Addre ss Type Group MEDICARE MEDICARE PART A [id number] 2013-Presen [phone] [id number] [place] [id number] Advance Directives Latest Code Status on File Code Status Date Activated Date Inactivated Comments Full Code 11/09/2016 4:50 PM 11/10/2016 1:41 PM Does patient have capacity to make decision: Yes Full Code 11/09/2016 12:03 PM 11/09/2016 4:50 PM Does patient have capacity to make decision: Yes Care Teams Motor And Chassis Inspector Relationship Specialty Start Date End Date Chau Arshad MD PCP - General Internal Medicine 08/21/16 [address] [place] [address]
--- OUTSIDE RECORDS SUMMARY | 2021-10-17 10:51 | XMS_ITS | Encounter Summary ---
:1935 Author Organization [facility] [place] [address] Care Team Providers Name Role Phone Chau Arshad MD Primary Care Provider Reason for Visit Reason Comments Carotid Stenosis CAROTID ENDARTECTOMY Encounter Details Date Type Department Care Team Description 12/17/2016 Office Visit Vascular Surgery at [facility], Carotid stenosis, [facility] Lucille Rosas MD [facility] [address] [place], [place] VASCULAR SURGERY [id number] [place] [address] [phone] (Wo rk) Social History Tobacco Use Types Packs/Day Years [...] on file documented as of this encounter Last Filed Vital Signs Vital Sign Reading Time Taken Comments Blood Pressure 171/79 12/17/2016 11:21 AM EDT Pulse 67 12/17/2016 11:21 AM EDT Temperature - - Respiratory Rate 18 12/17/2016 11:21 AM EDT Oxygen Saturation - - Inhaled Oxygen Concentration - - Weight 81.6 kg (180 lb) 12/17/2016 11:21 AM EDT Height 170.2 cm (5' 7) 12/17/2016 11:21 AM EDT Body Mass Index 28.19 12/17/2016 11:21 AM EDT documented in this encounter Progress Notes Lucille Rivera MD - 12/17/2016 11:15 AM EDT OUTPATIENT VASCULAR SURGERY FOLLOW-UP Reason for Visit: carotid stenosis History of Present Illness: Asim Cox is an 81 yo M here for follow-up s/p R CEA on 11/09/16 foraymptomatic high grade R ICA stenosis. He reports that he has had some R ear pain since the surgery which is gradually improving. He denies any headache or sx of TIA or CVA. Atherosclerotic Risk Factors: (n) DM (y) HTN (y) Hyperlipidemia Patient Active Problem List Diagnosis Code ??? Altered mental status R41.82 ??? Vertigo R42 ??? Carotid artery disease I77.9 ??? Male erectile dysfunction N52.9 ??? Venous insufficiency of leg I87.2 ??? AK (actinic keratosis) L57.0 ??? Hypertension I10 ??? BPH (benign prostatic hyperplasia) N40.0 ??? 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 Hyperlipidemia E78.5 ??? OA (osteoarthritis) M19.90 ??? Carotid stenosis, right I65.21 Current Outpatient Prescriptions: ??? chlorthalidone (HYGROTEN) 25 mg Tablet, Take 12.5 mg by mouth daily., Disp: , Rfl: ??? multivitamin with minerals Tablet, Take 1 tablet by mouth daily., Disp: , Rfl: ??? aspirin 81 mg Tablet, Delayed Release (E.C.), Take 81 mg by mouth daily., Disp: , Rfl: ??? amoxicillin (AMOXIL) 500 mg Capsule, Take 500 mg by mouth as needed (Take 4 capsules one hour prior to dental appointment)., Disp: , Rfl: ??? lactobacillus rhamnosus, GG, (CULTURELLE) 10 billion cell Capsule, Take 1 capsule by mouth as needed (take with antibiotics)., Disp: , Rfl: ??? ibuprofen (ADVIL;MOTRIN) 200 mg Tablet, Take 200 mg by mouth every 6 hours as needed for Pain., Disp: , Rfl: Allergies Allergen Reactions ??? Clindamycin Review of Systems: Constitutional (weight change, fever) - Denies Neuro (dizziness, seizures, numbness, tingling) - Denies Eyes (vision) - Denies Ears, nose, throat (hearing) - Denies Cardiovascular (CP) - Denies Respiratory (SOB) - Denies GI (abd pain, nausea, emesis, blood in stool) - Denies (hematuria, dysuria, frequency) - Denies Muscoloskeletal (extremity pain, weakness) - Denies Skin (ulcers, rashes) - Denies Functional Status/Social Hx: Lives at home, Drives Car, Denies current Tobacco Use Family Hx: Negative for Thrombosis, Bleeding Disorders Physical Exam: 154/73 62 General - NAD, appears stated age Neuro - Alert and Oriented, Motor Sensory grossly intact Skin - No prominent markings or lesions Ear, Nose, Throat - No masses, No lesions Cardiac - RRR, no murmurs Lungs - Clear Abd - Soft, NT, ND, No palpable pulsatile masses Musculoskeletal- full ROM upper and lower extremities Psych- alert oriented X3 , Extremities - Warm, pink, no edema, brisk capillary refill Vascular Exam: R L Carotid 2/2 bruit (n) 2/2 bruit (n) Radial 2/2 2/2 Femoral 2/2 2/2 Popliteal 2/2 2/2 DP 2/2 2/2 PT 2/2 2/2 CTA neck 09/25/16: images reviewed. There is a high grade focal R ICA stenosis with the bifurcation at the level of C3. Carotid Duplex 12/17/16: Findings: ICA Proximal, Right ?PSV (cm/s): 49 ?EDV (cm/s): 13 ?ICA/CCA: 0.9 ?Plaque Structure: Echogenic ?Plaque Surface: Smooth ?%Stenosis: <15% ICA Distal, Right ?PSV (cm/s): 54 ?EDV (cm/s): 16 ?ICA/CCA: 1.0 CCA Distal, Right ?PSV (cm/s): 56 ?EDV (cm/s): 12 ?%Stenosis: Minimal CCA Proximal, Right ?PSV (cm/s): 117 ?EDV (cm/s): 11 External Carotid Artery, Right ?PSV (cm/s): 37 ?EDV (cm/s): 0 ?%Stenosis: <50% Vertebral, Right ?PSV (cm/s): 30 ?EDV (cm/s): 11 ?Direction of Flow: Antegrade Interpretation: RIGHT: Widely patent carotid bifurcation and proximal internal carotid artery with no evidence of residual stenosis s/p CEA. Significant improvement from pre-op exam. The bifurcation level is in the mid neck. Vertebral Artery Data: Patent RIGHT vertebral artery with normal antegrade flow. Previous Carotid Studies: Date ?RIGHT ICA Stenosis ??PSV ?? Ratio ?? LEFT ICA Stenosis ?? PSV ?? Ratio ? 80-99% ? 442 ?? 12.30 ?16-49% ? 142 ?? 2.00 Current Exam ? <15% ? 49 ?1.00 ? n/a ?n/a ?? n/a Assessment and Plan: 81 yo M s/p R CEA for high grade asymptomatic R ICA stenosis On 11/09/16, doing well. He will follow-up ni 1 year with a repeat carotid duplex at that time. Continue ASA, statin. documented in this encounter Plan of Treatment Not on filedocumented as of this encounter Visit Diagnoses Diagnosis Carotid stenosis, right Occlusion and stenosis of carotid artery without mention of cerebral infarction documented in this encounter Care Teams Lithograph Designer Relationship Specialty Start Date End Date Chau Arshad MD PCP - General Internal Medicine 08/21/16 [address] [place] [address] documented as of this encounter
--- OUTSIDE RECORDS SUMMARY | 2021-10-17 10:51 | XMS_ITS | Encounter Summary ---
:1935 Author Organization [facility] [place] [address] Care Team Providers Name Role Phone Chau Arshad MD Primary Care Provider Encounter Details Date Type Department Care Team Description 08/21/2016 Orders Only Vascular Surgery at [facility] carotid [facility], [place] [address] Social History Tobacco Use Types Packs/Day Years Used Date Never Assessed Sex Assigned at Date Recorded Not on file documented as of this encounter Plan of Treatment Not on filedocumented as of this encounter Results Cerebrovascular Duplex, Bilateral (08/28/2016 10:38 AM EDT) Component Value Ref Test Analysis Performed At [facility] Range Method Time Signature VB Text Department: Vascular Surgery Lab VASCUBASE Report Patient: [id number] (ASIM COX) CPT: 41933 ICD10: I65.23 Referring Physician: DANIEL CARREON ?? Phone: Indications: c/o dizziness with bilateral caroti d stenosis per OSH; ? carotid stenosis ICD10 Diagnosis Code: I65.23 Findings: ICA Proximal, Right ? PSV (cm/s): 442 ? EDV (cm/s): 153 ? ICA/CCA: 12.3 ? Plaque Structure: Mixed Echolucent ? Plaque Surface: Irregular ? %Stenosis: 80-99% ICA Middle, Right ? PSV (cm/s): 116 ? EDV (cm/s): 16 ? ICA/CCA: 3.2 ICA Distal, Right ? PSV (cm/s): 18 ? EDV (cm/s): 8 ? ICA/CCA: 0.5 CCA Distal, Right ? PSV (cm/s): 36 ? EDV (cm/s): 6 ? %Stenosis: <50% CCA Proximal, Right ? PSV (cm/s): 110 ? EDV (cm/s): 0 External Carotid Artery, Right ? PSV (cm/s): 249 ? EDV (cm/s): 9 ? %Stenosis: >50% Vertebral, Right ? PSV (cm/s): 36 ? EDV (cm/s): 12 ? Direction of Flow: Antegrade ICA Proximal, Left ? PSV (cm/s): 142 ? EDV (cm/s): 49 ? ICA/CCA: 2.0 ? Plaque Structure: Echogenic ? Plaque Surface: Irregular ? %Stenosis: 16-49% ICA Distal, Left ? PSV (cm/s): 64 ? EDV (cm/s): 23 ? ICA/CCA: 0.9 CCA Distal, Left ? PSV (cm/s): 71 ? EDV (cm/s): 15 ? %Stenosis: <50% CCA Proximal, Left ? PSV (cm/s): 167 ? EDV (cm/s): 27 External Carotid Artery, Left ? PSV (cm/s): 100 ? EDV (cm/s): 6 ? %Stenosis: <50% Vertebral, Left ? PSV (cm/s): 37 ? EDV (cm/s): 9 ? Direction of Flow: Antegrade Interpretation: RIGHT: There is smooth plaque in the common carotid artery c ausing 20-30% stenosis by e-caliper measurement. There is mixed echolucent, irregular plaque in the proximal internal car otid artery causing 80-99% stenosis when compared to the more distal internal carotid artery. The bifurcati on level is in the mid neck. LEFT: There is smooth plaque in the common carotid artery ca using 20-30% stenosis by e-caliper measurement. There is bulky, irregular, calcified plaque in the proximal internal car otid artery causing 16-49% stenosis when compared to the more distal internal carotid artery. Calcification of th e carotid bifurcation prohibits thorou gh interrogation by Doppler: unable to exclude more significant stenosis. The bifurcation level is in the mid ne ck. Vertebral Artery Data: Patent vertebral arteries with normal antegrade Doppler waveforms and velocities bilaterally. Comparison: ??No previous study in our vascular lab da tabase for comparison. Electronically Signed by: ANGELA SALEEM on 2016-08-28 12:53:42 PM VB Text End of Report VASCUBASE Report Specimen (Source) Anatomical Collection Method Collection Time Re ceived Time Location / / Volume Laterality 08/28/2016 10:38 AM EDT Daniel Carreon MD VASCULAR ORDERABLES Performing Organization Address City/State/ZIP Code Phon e Number VASCUBASE documented in this encounter Visit Diagnoses Diagnosis Bilateral carotid artery stenosis Occlusion and stenosis of multiple and b ilateral precerebral arteries without mention of cerebral infarction documented in this encounter Care Teams Contract Admin Relationship Specialty Start Date End Date Chau Arshad MD PCP - General Internal Medicine 08/21/16 [address] [place] [address] documented as of this encounter
--- OUTSIDE RECORDS SUMMARY | 2021-10-17 10:51 | XMS_ITS | Encounter Summary ---
:1935 [place] [address] Care Team Providers Name Role Phone Chau Arshad MD Primary Care Provider Encounter Details Date Type Department Care Team Description 09/25/2016 Laboratory Appointment Lab at [facility] Bilateral carotid [facility] [place] [address] Social History Tobacco Use Types Packs/Day Years [...] Name Priority Date/Time Associated Diagnosis Comme nts HEMOGRAM Routine 09/25/2016 2:08 PM Bilateral carotid Resu lts for this EDT artery stenosis procedure ar e in the results section. BASIC METABOLIC Routine 09/25/2016 2:08 PM Bilateral carotid R esults for this PANEL (NON-FASTING) EDT artery stenosis proce dure are in the results section. documented in this encounter Results (ABNORMAL) Basic Metabolic Panel (non-fasting) (09/25/2016 2:08 PM EDT) P athologist Signature Glucose Lvl 158 65 - 199 [facility] mg/dL [facility] Comment: Diabetes: >=200 mg/dL plus symp toms BUN 38 (H) 10 - 20 mg/dL [facility] Creatinine 1.15 0.80 - 1.50 mg/dL [facility] Comment: Please note that the pediatric reference intervals supplied above were not validated at [facility]. Results from pediatri c patients should be interpreted in conjunction to the patient's age, height and muscle mass. Sodium 141 135 - 145 mmol/L [facility] Potassium 4.0 3.5 - 5.0 mmol/L [facility] Comment: Please note: ??Patients with WBC >100,00 0 may have falsely elevated Potassium levels. ??For accurate Potassium quantif ication in these patients send serum separator tube (gold top) for subsequent determinations. ??Contact the Clinical Chemistry Laboratory if there are any qu estions. Chloride 103 98 - 107 mmol/L [facility] CO2 23 22 - 31 mmol/L [facility] Anion Gap 15 5 - 15 mmol/L [facility] Calcium 9.4 8.5 - 10.5 mg/dL [facility] Estimated GFR >60 >=60 [facility] Comment: This estimated GFR (eGFR) value was calc ulated using the MDRD equation which has been validated on patients between t he ages of 18 and 70. The MDRD should not be used to assess kidney function in patients < 18 years of age or in patients with extremes of body mass, or in patients with acute kidney failure. This value should be multiplied by 1.2 f or patients. For further information please copy and past e the following links into your internet browser. http://pinion-pins/DHnkdep http://pinion-pins/DHMCnkf Specimen Anatomical Collection Method Collection Time Receive d Time (Source) Location / / Volume Laterality Blood specimen 09/25/2016 2:08 PM 017 2:22 (specimen) EDT PM EDT Resulting Agency Comment Spec In Lab Lucille Rivera MD CHEMISTRY ORDERABLES Performing Organization Address City/State/[place] [address] Hemogram (09/25/2016 2:08 PM EDT) P athologist Signature WBC 6.4 4.0 - 9.5 [facility] x10(3)/[facility] LABORATORY RBC 4.76 4.58 - THIERNO MENDOZA 5.54 [facility] x10(6)/[facility] LABORATORY Hemoglobin 14.1 13.7 - [facility] 16.5 gm/dL [facility] Hematocrit 43.9 40.5 - [facility] 48.5 % [facility] MCV 92.2 82.9 - [facility] 93.1 [facility] MCH 29.6 27.5 - [facility] 32.1 pg [facility] MCHC 32.1 32.0 - [facility] 35.7 gm/dL [facility] Platelets 172 145 - 357 [facility] x10(3)/[facility] LABORATORY RDWSD 42.9 36.0 - [facility] 45.0 [facility] LABORATORY RDWCV 12.7 11.4 - [facility] 13.8 % [facility] MPV 11.4 7.6 - 12.9 [facility] LABORATORY nRBC % Auto 0.0 % [facility] nRBC Abs Auto 0.000 0.000 - [facility] 0.000 [facility] x10(3)/[facility] LABORATORY Specimen Anatomical Collection Method Collection Time Receive d Time (Source) Location / / Volume Laterality Blood specimen 09/25/2016 2:08 PM 017 2:22 (specimen) EDT PM EDT Resulting Agency Comment Spec In Lab Lucille Rivera MD HEMATOLOGY ORDERABLES Performing Organization Address City/State/[place] [address] documented in this encounter Visit Diagnoses Diagnosis Bilateral carotid artery stenosis Occlusion and stenosis of multiple and b ilateral precerebral arteries without mention of cerebral infarction documented in this encounter Care Teams Roofing Technician Relationship Specialty Start Date End Date Chau Arshad MD PCP - General Internal Medicine 08/21/16 [address] [place] [address] documented as of this encounter
--- OUTSIDE RECORDS SUMMARY | 2021-10-17 10:51 | XMS_ITS | Encounter Summary ---
:1935 Author Organization [facility] [place] [address] Care Team Providers Name Role Phone Chau Arshad MD Primary Care Provider Encounter Details Date Type Department Care Team Description 12/17/2016 Orders Only Vascular Surgery at [facility] carotid [facility], [place] [address] Social History Tobacco Use Types Packs/Day [...] of this encounter Results Cerebrovascular Duplex, Bilateral (12/28/2017 12:53 PM EDT) Component Value Ref Test Analysis Performed At [facility] Range Method Time Signature VB Text Department: Vascular Surgery Lab VASCUBASE Report Patient: [id number] (ASIM COX) CPT: 47767 ICD10: I65.23 Referring Physician: ANGELA SALEEM ?? Phone: Indications: ??hx RIGHT CEA, carotid disease, ? change ICD10 Diagnosis Code: I65.23 Findings: ICA Proximal, Right ? PSV (cm/s): 64 ? EDV (cm/s): 14 ? ICA/CCA: 1.2 ? Plaque Structure: Echogenic ? Plaque Surface: Irregular ? %Stenosis: <15% ICA Distal, Right ? PSV (cm/s): 51 ? EDV (cm/s): 15 ? ICA/CCA: 1.0 CCA Distal, Right ? PSV (cm/s): 52 ? EDV (cm/s): 6 ? %Stenosis: Minimal CCA Proximal, Right ? PSV (cm/s): 86 ? EDV (cm/s): 6 External Carotid Artery, Right ? PSV (cm/s): 90 ? EDV (cm/s): 0 ? %Stenosis: <50% Vertebral, Right ? PSV (cm/s): 64 ? EDV (cm/s): 18 ? Direction of Flow: Antegrade ICA Proximal, Left ? PSV (cm/s): 95 ? EDV (cm/s): 28 ? ICA/CCA: 1.5 ? Plaque Structure: Echogenic ? Plaque Surface: Irregular ? %Stenosis: 16-49% ICA Distal, Left ? PSV (cm/s): 77 ? EDV (cm/s): 15 ? ICA/CCA: 1.2 CCA Distal, Left ? PSV (cm/s): 65 ? EDV (cm/s): 12 ? %Stenosis: Minimal CCA Proximal, Left ? PSV (cm/s): 116 ? EDV (cm/s): 9 External Carotid Artery, Left ? PSV (cm/s): 76 ? EDV (cm/s): 0 ? %Stenosis: <50% Vertebral, Left ? PSV (cm/s): 29 ? EDV (cm/s): 8 ? Direction of Flow: Antegrade Interpretation: RIGHT: There is irregular plaque in the proximal internal ca rotid artery causing <15% stenosis when c ompared to the more distal internal carotid artery. The bifurcation level is in the mid neck. No significant c hange compared to previous exam. LEFT: There is bulky irregular plaque in the pro ximal internal carotid artery causing 16-49% stenosis when compared to the more distal int ernal carotid artery. The bifurcation leve l is in the mid neck. No significant change compared to previous exam. Vertebral Artery Data: Patent vertebral arteries with normal antegrade Doppler waveforms and velocities bilaterally. Previous Carotid Studies: Date ?RIGHT ICA St enosis ??PSV ?? Ratio ?? LEFT ICA Stenosis ?? PSV ?? Ratio ? 80-99% ? 442 ?? 12.30 ?16-49% ? 142 ?? 2.00 ? <15% ? 49 ?1.00 ? n/a ?n/a ?? n/a Current Exam ? <15% ? 64 ?1.20 ? 16-49% ? 95 ?1.50 Electronically Signed by: CLAUDIA BARR on 2017-12-28 04:53: 51 PM VB Text End of Report VASCUBASE Report Specimen (Source) Anatomical Collection Method Collection Time Re ceived Time Location / / Volume Laterality 12/28/2017 12:53 PM EDT Angela Saleem MD VASCULAR ORDERABLES Performing Organization Address City/State/ZIP Code Phon e Number VASCUBASE documented in this encounter Visit Diagnoses Diagnosis Bilateral carotid artery stenosis Occlusion and stenosis of multiple and b ilateral precerebral arteries without mention of cerebral infarction documented in this encounter Care Teams Gill Net Stringer Relationship Specialty Start Date End Date Chau Arshad MD PCP - General Internal Medicine 08/21/16 [address] [place] [address] documented as of this encounter
--- OUTSIDE RECORDS SUMMARY | 2021-10-17 10:51 | XMS_ITS | Encounter Summary ---
:1935 Author Organization [place] [address] Care Team Providers Name Role Phone Chau Arshad MD Primary Care Provider Encounter Details Date Type Department Care Team Description 06/13/2019 Telephone Vascular Surgery at [facility] [place] [place] [address] Social History Tobacco Use Types Packs/Day [...] on file documented as of this encounter Miscellaneous Notes Telephone Encounter - Glo Vogel - 06/13/2019 9:35 AM EST YELLOW/RECALL LIST: RECALL PROVIDER: SAMY RECALL: Bilat Car Dup - R CEA 1Y FUV NOTES: Lmx1 06/07/2019 HH Letter sent 06/07/2019 Lmx2 3.3.20 lb REMOVED RECALL PER PROTOCOL documented in this encounter Plan of Treatment Not on filedocumented as of this encounter Visit Diagnoses Not on filedocumented in this encounter Care Teams Hand Plate Stacker Relationship Specialty Start Date End Date Chau Arshad MD PCP - General Internal Medicine 08/21/16 [address] [place] [address] documented as of this encounter
--- OUTSIDE RECORDS SUMMARY | 2021-10-17 10:51 | XMS_ITS | Encounter Summary ---
:1935 Author Organization [facility] [place] [address] Care Team Providers Name Role Phone Chau Arshad MD Primary Care Provider Reason for Visit Reason Comments Carotid Stenosis ct carotids 2 -3 wk f/u Encounter Details Date Type Department Care Team Description 09/25/2016 [facility] Lucille Rosas MD artery stenosis [facility] [address] [place] [place], [place] VASCULAR SURGERY [address] [place] [address] [phone] (Wo rk) Social History Tobacco Use Types [...] Sign Reading Time Taken Comments Blood Pressure 145/62 09/25/2016 12:42 PM EDT Pulse 77 09/25/2016 12:42 PM EDT Temperature - - Respiratory Rate 18 09/25/2016 12:42 PM EDT Oxygen Saturation - - Inhaled Oxygen Concentration - - Weight 81.6 kg (180 lb) 09/25/2016 12:42 PM EDT Height 170.2 cm (5' 7) 09/25/2016 12:42 PM EDT Body Mass Index 28.19 09/25/2016 12:42 PM EDT documented in this encounter Progress Notes Lucille Rivera MD - 09/25/2016 12:45 PM EDT OUTPATIENT VASCULAR SURGERY FOLLOW-UP Reason for Visit: carotid stenosis History of Present Illness: Asim Cox is an 81 yo M here for follow-up evaluation of high gradeR ICA stenosis. He reports that he had an episode of confusion and altered mental status after taking clindamycin for a dental abscess. Subsequently, he has had episodes of dizziness when standing which prompted a work-up which included a carotid duplex. He denies any episodes of weakness in his arms or legs, slurred speech, difficulty finding words or amaurosis fugax. He currently takes 81mg ASA butdoes not take a statin as he is concerned about side effects. He is scheduled to have two teeth pulled next Wednesday (Dr. Gen Thorne [place], [place]) for dental abscess. He returns today for CTA and to discuss surgery again. Atherosclerotic Risk Factors: (n) DM (y) HTN [...] ??? Hyperlipidemia E78.5 ??? OA (osteoarthritis) M19.90 Current Outpatient Prescriptions: ??? aspirin 81 mg Tablet, Delayed Release [...] as needed for Pain., Disp: , Rfl: No current facility-administered medications for this visit. Facility-Administered Medications Ordered in Other Visits: ??? sodium bicarbonate 150 mEq in dextrose 5% 1000 mL infusion, 3 mL/kg/hr, Intravenous, Continuous,Lucille Rivera MD, Last Rate: 82 mL/hr at 09/25/16 1000, 1.005 mL/kg/hr at 09/25/16 1000 Allergies Allergen Reactions ??? Clindamycin Review of [...] the bifurcation at the level of C3. Assessment and Plan: 81 yo M with high grade asymptomatic R ICA stenosis. Given stenosis is > 80%I would recommend R carotid endarterectomy for stroke prevention. We discussed the risks and benefits of surgery and he is he would like to proceed with endarterectomy under general anesthesia. He is scheduled for tooth extraction for abscess on 09/29. I will follow-up with his dentist to determine when he is infection free and cleared for the endarterectomy. Medical clearance from his PCP, Chau Arshad MD. documented in this encounter Plan of Treatment Not on filedocumented as of this encounter Procedures Procedure Name Priority Date/Time Associated Diagnosis Comme nts ENDART, CAROTID, Routine 09/25/2016 12:55 PM Bilateral carotid VERTEBRAL,SUBCLAVIAN EDT artery stenosis W\WO PATCH GRAFT, BY NECK INCIS documented in this encounter Results (ABNORMAL) Basic Metabolic Panel (non-fasting) (09/25/2016 2:08 PM EDT) athologist Signature Glucose Lvl 158 65 - 199 [facility] mg/dL [facility] Comment: Diabetes: >=200 mg/dL plus symp toms BUN 38 (H) 10 - 20 mg/dL [facility] Creatinine 1.15 0.80 - 1.50 mg/dL [facility] Comment: Please note that the pediatric reference intervals supplied above were not validated at [facility]. Results from pediatri c patients should be interpreted in conjunction to the patient's age, height and muscle mass. Sodium 141 135 - 145 mmol/L [facility] Potassium 4.0 3.5 - 5.0 mmol/L [facility] Comment: Please note: ??Patients with WBC >100,00 0 may have falsely elevated Potassium levels. ??For accurate Potassium quantif ication in these patients send serum separator tube (gold top) for subsequent determinations. ??Contact the Clinical Chemistry Laboratory if there are any qu estions. Chloride 103 98 - 107 mmol/L [facility] CO2 23 22 - 31 mmol/L [facility] Anion Gap 15 5 - 15 mmol/L [facility] Calcium 9.4 8.5 - 10.5 mg/dL [facility] Estimated GFR >60 >=60 [facility] Comment: This estimated GFR (eGFR) value [...] the following links into your internet browser. [email or web address] [email or web address] Specimen Anatomical Collection Method Collection Time Receive d Time (Source) Location / / Volume Laterality Blood specimen 09/25/2016 2:08 PM 017 2:22 (specimen) EDT PM EDT Resulting Agency Comment Spec In Lab Lucille Rivera MD CHEMISTRY ORDERABLES Performing Organization Address City/State/[place] [address] Hemogram (09/25/2016 2:08 PM EDT) P athologist Signature WBC 6.4 4.0 - 9.5 [facility] x[facility](3[facility] RBC 4.76 4.58 - [place]IER[place] [employer] 5.54 [facility] x10(6)/[facility] LABORATORY Hemoglobin 14.1 13.7 - [facility] MENDOZA 16.5 gm/dL [facility] Hematocrit 43.9 40.5 - HTIERNO [place] 48.5 % [facility] MCV 92.2 82.9 - [facility] 93.1 [facility] MCH 29.6 27.5 - [facility] 32.1 pg [facility] MCHC 32.1 32.0 - THIERNO MENDOZA 35.7 gm/dL [facility] Platelets 172 145 - 357 [facility] x[facility](3[facility] RDWSD 42.9 36.0 - [facility] 45.0 [facility] RDWCV 12.7 11.4 - THIER[place] MENDOZA 13.8 % [facility] MPV 11.4 7.6 - 12.9 [facility] [employer] [facility] LABORATORY nRBC % Auto 0.0 % [facility] nRBC Abs Auto 0.000 0.000 - [facility] [employer]ar 0.000 [facility] x10(3)/[facility] LABORATORY Specimen Anatomical Collection Method Collection Time Receive d Time (Source) Location / / Volume Laterality Blood specimen 09/25/2016 2:08 PM 017 2:22 (specimen) EDT PM EDT Resulting Agency Comment Spec In Lab Lucille Rivera MD HEMATOLOGY ORDERABLES Performing Organization Address City/State/[place] [address] EKG 12 Lead (09/25/2016 2:00 PM EDT) Component Value Ref Range Test Analysis Performed Pathologis t Method Time At Signature Ventricular rate 72 BPM MUSE SYSTEM Atrial Rate 72 BPM MUSE SYSTEM P-R Interval 146 ms MUSE SYSTEM QRS Duration 84 ms MUSE SYSTEM Q-T Interval 332 ms MUSE SYSTEM QTC Calculated 363 ms MUSE SYSTEM (Bezet) Calculated P [place] 50 degrees MUSE SYSTEM Calculated R [place] 18 degrees MUSE SYSTEM Calculated T [place] -18 degrees MUSE SYSTEM INTERPRETATION Normal sinus rhythm with sinus arrhythmia MUSE SYSTEM Moderate voltage criteria for LVH, may be normal variant Inferior infarct , age undetermined Abnormal ECG When compared with ECG of 02-APR-2005 13:11, Inferior infarct is now Present Nonspecific T wave abnormality now evident in Inferior leads Nonspecific T wave abnormality, worse in Anterolateral leads Confirmed by MD Santos, Roger ([id number]) on 09/25/2016 3:02:35 PM Specimen Anatomical Collection Method Collection Time Receive d Time (Source) Location / / Volume Laterality 09/25/2016 2:00 PM 7 3:02 EDT PM EDT Lucille Rivera MD ECG ORDERABLES Performing Organization Address City/State/ZIP Code Phon e Number MUSE SYSTEM documented in this encounter Visit Diagnoses Diagnosis Bilateral carotid artery stenosis Occlusion and stenosis of multiple and b ilateral precerebral arteries without mention of cerebral infarction documented in this encounter Care Teams Frame And Scrap Crusher Relationship Specialty Start Date End Date Chau Arshad MD PCP - General Internal Medicine 08/21/16 [address] [place] [address] documented as of this encounter
--- OUTSIDE RECORDS SUMMARY | 2021-10-17 10:51 | XMS_ITS | Encounter Summary ---
:1935 Author Organization [facility] [place] [address] Care Team Providers Name Role Phone Chau Arshad MD Primary Care Provider Reason for Visit Reason Comments Carotid Stenosis R ICA STENOSIS VERTIGO AND M ENTAL STATUS CHANGES Consultation (Routine) - Closed Specialty Diagnoses / Procedures Referred By Contact Refer red To Contact Vascular Surgery Diagnoses discuss further diagnostic studies or treatments for his possibly completely occluded right internal carotid artery. Chau Arshad MD [facility] Vascular Surg 3v [address] [place] [address] [place] [address] Phone: Referral ID Status Reason Start Date Expiration Date Visits V isits Requested Authorized [id number] Closed Consult, 08/21/2016 08/21/2017 2 2 [facility] Encounter Details Date Type Department Care Team Description 08/28/2016 [facility] Angela Rosas MD artery stenosis [facility] YANELIS Servin VASCULAR SURGERY [address] [place] [address] [phone] (Wo rk) Social History Tobacco Use Types Packs/Day Years Used Date Never Smoker Sex Assigned at Date Recorded Not on file documented as of this encounter Last Filed Vital Signs Vital Sign Reading Time Taken Comments Blood Pressure 154/73 08/28/2016 1:12 PM EDT Pulse 62 08/28/2016 1:12 PM EDT Temperature - - Respiratory Rate 18 08/28/2016 1:12 PM EDT Oxygen Saturation - - Inhaled Oxygen Concentration - - Weight 81.6 kg (180 lb) 08/28/2016 1:12 PM EDT Height 170.2 cm (5' 7) 08/28/2016 1:12 PM EDT Body Mass Index 28.19 08/28/2016 1:12 PM EDT documented in this encounter Progress Notes Angela Saleem MD - 08/28/2016 1:00 PM EDT OUTPATIENT VASCULAR SURGERY CONSULTATION Reason for Visit: carotid stenosis History of Present Illness: Asim Cox is an 81 yo M referred by Chau Arshda MD for evaluation of high grade R ICA stenosis. He reports that he had [...] amaurosis fugax. He currently takes 81mg ASA but does not take a statin as he is concerned about side effects. He has been recommended to have all his teeth removed but is waiting for recommendations regarding this carotid stenosis. Atherosclerotic Risk Factors: (n) DM (y) HTN [...] 2/2 DP 2/2 2/2 PT 2/2 2/2 Labs: Recent Results (from the past 72 hour(s)) Cerebrovascular Duplex, Bilateral Result Value Ref Range VB Text Report Department: Vascular Surgery Lab Patient: [id number] (ASIM COX) CPT: 16202 ICD10: I65.23 Referring Physician: MANUELA AGUILA Phone: Indications: c/o dizziness with bilateral carotid stenosis per OSH; ? carotid stenosis ICD10 Diagnosis Code: I65.23 Findings: ICA Proximal, Right PSV (cm/s): 442 EDV (cm/s): 153 ICA/CCA: 12.3 Plaque Structure: Mixed Echolucent Plaque Surface: Irregular %Stenosis: 80-99% ICA Middle, Right PSV (cm/s): 116 EDV (cm/s): 16 ICA/CCA: 3.2 ICA Distal, Right PSV (cm/s): 18 EDV (cm/s): 8 ICA/CCA: 0.5 CCA Distal, Right PSV (cm/s): 36 EDV (cm/s): 6 %Stenosis: <50% CCA Proximal, Right PSV (cm/s): 110 EDV (cm/s): 0 External Carotid Artery, Right PSV (cm/s): 249 EDV (cm/s): 9 %Stenosis: >50% Vertebral, Right PSV (cm/s): 36 EDV (cm/s): 12 Direction of Flow: Antegrade ICA Proximal, Left PSV (cm/s): 142 EDV (cm/s): 49 ICA/CCA: 2.0 Plaque Structure: Echogenic Plaque Surface: Irregular %Stenosis: 16-49% ICA Distal, Left PSV (cm/s): 64 EDV (cm/s): 23 ICA/CCA: 0.9 CCA Distal, Left PSV (cm/s): 71 EDV (cm/s): 15 %Stenosis: <50% CCA Proximal, Left PSV (cm/s): 167 EDV (cm/s): 27 External Carotid Artery, Left PSV (cm/s): 100 EDV (cm/s): 6 %Stenosis: <50% Vertebral, Left PSV (cm/s): 37 EDV (cm/s): 9 Direction of Flow: Antegrade Interpretation: RIGHT: There is smooth plaque in the common carotid artery causing 20-30% stenosis by e-caliper measurement. There is mixed echolucent, irregular plaque in the proximal internal carotid artery causing 80-99% stenosis when compared to the more distal internal carotid artery. The bifurcation level is in the mid neck. LEFT: There is smooth plaque in the common carotid artery causing 20-30% stenosi s by e-caliper measurement. There is bulky, irregular, calcified plaque in the proximal internal carotid artery causing 16-49% stenosis when compared to the more distal internal carotid artery. Calcification of the carotid bifurcation prohibits thorough interrogation by Doppler: unable to exclude more significant stenosis. The bifurcation level is in the mid neck. Vertebral Artery Data: Patent vertebral arteries with normal antegrade Doppler waveforms and velocities bilaterally. Comparison: No previous study in our vascular lab database for comparison. Electronically Signed by: ANGELA SALEEM on 2016-08-28 12:53:42 PM VB Text Report End of Report Assessment and Plan: 81 yo M with high grade asymptomatic R ICA stenosis. Given stenosis is > 80%I would recommend R carotid endarterectomy for stroke prevention. We discussed the risks and benefits of surgery and he is unsure whether he would like to proceed. I will give him time to think about it and he will return in 2 weeks for a CTA neck (for surgical planning) and to discuss again. documented in this encounter Plan of Treatment Not on filedocumented as of this encounter Visit Diagnoses Diagnosis Bilateral carotid artery stenosis Occlusion and stenosis of multiple and b ilateral precerebral arteries without mention of cerebral infarction documented in this encounter Care Teams Continuous Improvement Lead Relationship Specialty Start Date End Date Chau Arshad MD PCP - General Internal Medicine 08/21/16 [address] [place] [address] documented as of this encounter
--- OUTSIDE RECORDS SUMMARY | 2021-10-17 10:51 | XMS_ITS | Encounter Summary ---
:1935 [place] [address] Care Team Providers Name Role Phone Chau Arshad MD Primary Care Provider Reason for Visit Auth/Cert Specialty Diagnoses / Procedures Referred By Contact Refer red To Contact Diagnoses Carotid stenosis, right right carotid stenosis UNKNOWN Procedures PRO THROMBOENDARTECTMY NECK, NECK INCIS @ENDARTERECTOMY, CAROTID, VERTEBRAL,SUBCLAVIAN W\WO PATCH GRAFT (WRVU 21.16) Referral ID Status Reason Start Date Expiration Date Visits Requ ested Visits Authorized [id number] 1 1 Encounter Details Date Type Department Care Team Description 11/09/2016 Anesthesia Event Main Operating Room Lucille Louise MD [facility] [address] [facility] Oscar Tapia MD [facility] [place] [address] [place] [address] Anesthesia Record Procedure Summary Procedure Name Responsible Anesthesia Start Anesthesia Stop Time Anesthesiologist Time @Joey DAMON Jennifer E, MD 11/09/16 1243 07/04/28 1631 CAROTID, VERTEBRAL,SUBCLAVIA N W\WO PATCH GRAFT (WRVU 21.16) (Right Neck) Events Date Time Event Comment 11/09/2016 1243 AN Verify 1243 Start 1243 An Start Data 1252 An Induction 1252 An Intubation 1302 Anesthesia Ready 1335 Break/Relief In Heather Napoles MD 1346 Quick Note HD significant p ause. HR ~39. MAP transiently 45 for approx. 5 secs. Surgeon releasing traction, immedi ately resolved. Lidocaine 0.5mL 2% injecte d in surgical field. 1355 Quick Note EKG double count ing. Pulse 57. 1403 Break/Relief Out 1436 Quick Note ECG began doubli ng HR again 1514 Quick Note unclamped 1523 Handoff Intra-procedure anesthesia care was transferred afte r review of the patient's history, current anesthetic/surgical status and plan, accord ing to the ANES Provider Handoff Checklis t. 1553 1613 Extubation/LMA Out 1616 an stop data 1631 Recovery or ICU Handoff Patient care was transferred to the destination unit staff after review of the patient's medica l history, current anesthetic/surgi larissa status and plan, according to the Provider Handoff Checklist. 1631 Stop Name Total fentaNYL 150 mcg Propofol 270 mg Rocuronium 50 mg PHENYLephrine 260 mcg ePHEDrine 15 mg Ondansetron 4 mg Neostigmine 3 mg Glycopyrrolate 0.4 mg ceFAZolin (ANCEF) 2g in dextrose 5% 100 mL 4 g PHENYLephrine INF 1,320 mcg Heparin 10,000 Units Protamine 30 mg lactated Ringers infusion 1,000 mL 1,700 mL Agents Name O2 Air N2O Sevoflurane (et) Blood No blood administrations on file. Lines, Drains, and Airways Type Details Placement Removal Incision 11/09/16; 1352; neck 11/09/16 1352 by Sylvia De Leon RN PIV 11/09/16; 1137; 11/09/16 1137 by 11/10/16 1034 b y metacarpal vein (top of Julia Starks, Darius slater, Feliz hand), left; RN M, RESISTANCE WELDER [id number]-yvj-gunrhd catheter system; 18 gauge; intradermal injection; 11/10/16; 1034 ETT Mask Ventilation: Easy 11/09/16 1257 by 11/09/16 1613 by (1); ETT Type: Cuffed, Oscar Tapia MD Gr eenway, Hayes C, Oral; ETT Size: 7.5 mm; BOBBIN CLEANING MACHINE OPERATOR Mac Blade: 4; Notes: Asleep, Pre-O2, Stylette; Attempts: 1; Laryngoscopy Grade: 2; ETT Placement Verified By: Auscultation, Capnometry; Secured at Teeth: 23 cm; Inserted by: md mary lou Urethral Catheter 11/09/16; 1300; Surgery 11/09/16 1300 by 11/10 0000 by longer than 2 hours, Sylvia De Leon RN Lavo ie, Riri Rosas RN Physician order; Physician order; indwelling double lumen catheter; hydrophilic coated, latex; 14; inserted at this facility (Inserted by Moises TURPIN with ease. ); 1; 5; 10; none; drainage bag to dependent drainage; exact removal date and time unknown. Pt. does not have moore in this AM on morning assessment; 11/10/16; 0000 Arterial Line 11/09/16; 1310; radial 11/09/16 1310 by 11/09/16 1850 by artery, left; 20 gauge; Oscar Tapia MD M accready, Scott J, md mary lou; Sterile RN Gloves, Sterile Prep; no longer indicated, removed per policy, catheter intact; 11/09/16; 1850 documented in this encounter Social History Tobacco Use Types Packs/Day Years Used Date Never Smoker Smokeless Tobacco: Never Used Alcohol Habits Answer Date Recorded How often [...] on file documented as of this encounter OR Notes Anesthesia Postprocedure Evaluation - Lucille Cook MD - 11/09/2016 6:50 PM EDT [facility] Department of Anesthesiology Post-procedure Note Patient: Asim Cox Procedure Summary Date Anesthesia Start Anesthesia Stop Room / Location 11/09/16 1243 1631 [facility] OR 14 / [facility] MAIN OR Procedure Diagnosis Surgeon Responsible Provider @ENDARTERECTOMY, CAROTID, VERTEBRAL,SUBCLAVIAN W\WO PATCH GRAFT (WRVU 21.16) (Right Neck) Bilateralcarotid artery stenosis (right carotid stenosis) StablefordLucille MD O'Flaherty, Jennifer E, MD All Anesthesia Providers: Anesthesiologist: Ole Vitale MD; Lucille Cook MD BOBBIN CLEANING MACHINE OPERATOR: Buddy Ford CRNA Radio Board Operator: Oscar Tapia MD Last (1hr) Vitals: BP 134/53 (11/09/16 1800) Temp Pulse 68 (11/09/16 1800) Resp 17 (11/09/16 1800) SpO2 97 % (11/09/16 1800) Patient Location: PACU/[facility] Level of Consciousness: Awake and Alert Pain Management: Satisfactory Analgesia PONV: None Cardiovascular Status: At Baseline Respiratory Status: At Baseline Postoperative Fluid Status: Intravascular EUvolemia Possible Anesthetic Complications: NONE apparent at time of evaluation Final Primary Anesthesia Type: General (The anesthetic type performed was the same as planned.) Comments: BP under excellent control- SBP 130s Anesthesia Preprocedure Evaluation - Ole Vitale MD - 11/08/2016 4:06 PM EDT Pre-Anesthesia Evaluation for: Asim Cox a 81 y.o. male. Procedure(s): @ENDARTERECTOMY, CAROTID, VERTEBRAL,SUBCLAVIAN W\WO PATCH GRAFT (WRVU 21.16) Patient Active Problem List Diagnosis ??? Carotid artery disease No flow in the distal portion of the R ICA and moderate stenosis 50-60% In the left internal carotid artery ??? Carotid stenosis, right ??? Altered mental status ??? Vertigo ??? Male erectile dysfunction ??? Venous insufficiency of leg ??? AK (actinic keratosis) ??? Hypertension ??? BPH (benign prostatic hyperplasia) ??? Autonomic sensory neuropathy ??? Hyperlipidemia ??? OA (osteoarthritis) No past medical history on file. No past surgical history on file. Social History Substance Use Topics ??? Smoking status: Never Smoker ??? Smokeless tobacco: Not on file ??? Alcohol use Not on file Comment: stopped drinking 30 years ago History Drug Use No Allergies Allergen Reactions ??? Clindamycin Medications: MAR and/or home medications have been reviewed. Physical Exam: There were no vitals filed for this visit. There is no height or weight on file to calculate BMI. Airway Assessment: Mallampati: II TM distance: >3 FB Neck ROM: full Short chin Cardiovascular Assessment: Rhythm: regular Rate: normal (+) carotid bruit Pulmonary Assessment: breath sounds clear to auscultation Dental Assessment: - normal exam Misc Assessment: Patient is wearing No contact(s). IV access: Peripheral line Anesthesia Plan: ASA 3 general, with a(n) intravenous induction Asim Cox is a 81 y.o. 81.6 kg male nonsmoker with h/o HTN (baseline 130/70-80s per patient), HLD, OA, carotid stenosis presenting for right carotid endarterectomy with Dr. Rivera. No documented CAD. METS> 4. Meds: chlorthalidone, asa 81, ibuprofen Allergies: Clindamycin Anesth hx: No prior airway notes, no documented anesthesia complications. EKG: Normal sinus rhythm with sinus arrhythmia Moderate voltage criteria for LVH, may be normal variant Inferior infarct , age undetermined Labs 09/26: wbc 6.4, hgb 14.1, plt 172, na 141, k 4, cr 1.15 Plan for GA with ETT; standard ASA monitoring. A-line PIV access Region - Major Vascular (carotid, aorta, iliac) Informed Consent: Anesthetic plan and risks discussed with patient and spouse. Plan discussed with resident. PAT Staff Note documented in this encounter Plan of Treatment Not on filedocumented as of this encounter Visit Diagnoses Not on filedocumented in this encounter Administered Medications Inactive Administered Medications - up to 3 most recent administrations Medication Order MAR Action Action Date Dose Rate Site ceFAZolin (ANCEF) 2g in dextrose 5% Given 11/09/2016 3:59 PM EDT 2 g 100 mL 2 g, Intravenous, ONCE, 1 dose, On 11/09/16 at 1130, Administer over 30 Minutes, Redose every 3 hours if CrCl is greater than 20. Redose every 8 hours if CrCl is less than 20., Day of Surgery (Day of Procedure), Indication for (Active or Suspected): Prophylaxis Given 11/09/2016 1:02 PM EDT 2 g ePHEDrine 5 mg/mL multi-dose injection Given 11/09/2016 1:46 PM EDT 5 mg PRN, Starting on Wed11/09/16 at 1336, Until Wed11/09/16 at 1636, Anesthesia Intra-op, Routine Given 11/09/2016 1:36 PM EDT 5 mg Given 11/09/2016 1:00 PM EDT 5 mg fentaNYL 50 mcg/mL multi-dose injection Given 11/09/2016 3:33 PM EDT 50 mcg PRN, Starting on Wed11/09/16 at 1328, Until Wed11/09/16 at 1636, Pain, Anesthesia Intra-op, Routine Given 11/09/2016 1:28 PM EDT 50 mcg Given 11/09/2016 12:52 PM EDT 50 mcg glycopyrrolate (ROBINUL) multi-dose inje ction Given 11/09/2016 4:09 PM EDT 0.4 mg PRN, Starting on Wed11/09/16 at 1609, Until Wed11/09/16 at 1636, Anesthesia Intra-op, Routine heparin (porcine) injection Given 11/09/2016 2:50 PM EDT 2,000 Units PRN, Starting on Wed11/09/16 at 1414, Until Wed11/09/16 at 1636, Anesthesia Intra-op, Routine Given 11/09/2016 2:14 PM EDT 8,000 Units lactated Ringers infusion 1,000 mL New Bag 11/09/2016 3:00 PM EDT 1,000 mL, at 100 mL/hr, Intravenous, CONTINUOUS, Starting on Wed11/09/16 at 1130, Until Wed11/09/16 at 2015, Day of Surgery (Day of Procedure) New Bag 11/09/2016 12:43 PM EDT New Bag 11/09/2016 11:30 AM EDT 1,000 mLs 100 mL/hr neostigmine (BLOXIVERZ) injection Given 11/09/2016 4:09 PM EDT 3 mg PRN, Starting on Wed11/09/16 at 1609, Until Wed11/09/16 at 1636, Anesthesia Intra-op, Routine ondansetron (ZOFRAN) injection Given 11/09/2016 4:01 PM EDT 4 mg PRN, Starting on Wed11/09/16 at 1601, Until Wed11/09/16 at 1636, Nausea, Anesthesia Intra-op, Routine PHENYLephrine Rate/Dose Change 11/09/2016 3:00 PM 20 mcg/min 15 mL/hr (MAIRA-SYNEPHRINE) 20 mg in EDT sodium chloride 250 mL (standard ADULT & Yesenia greater than 20kg) infusion CONTINUOUS PRN, Starting on Wed11/09/16 at 1340, Until Wed11/09/16 at 1636, Anesthesia Intra-op, Routine Rate/Dose Change 11/09/2016 2:49 PM EDT 10 mcg/min 7.5 mL/hr Restarted 11/09/2016 2:41 PM EDT 20 mcg/min 15 mL/hr PHENYLephrine HCl in NS (PF) (MAIRA-SYNEPHRINE) Given 2:25 PM EDT 80 mcg 0.8 mg/10 mL (80 mcg/mL) multi-dose injection Syrg PRN, Starting on Wed11/09/16 at 1315, Until Wed11/09/16 at 1636, Anesthesia Intra-op, Routine Given 11/09/2016 1:38 PM EDT 80 mcg Given 11/09/2016 1:15 PM EDT 20 mcg propofol (DIPRIVAN) 10 mg/mL bolus injection Given 7 3:16 PM EDT 30 mg (Anesthesia) PRN, Starting on Wed11/09/16 at 1327, Until Wed11/09/16 at 1636, Anesthesia Intra-op Given 11/09/2016 1:27 PM EDT 40 mg Given 11/09/2016 12:52 PM EDT 200 mg protamine injection Given 11/09/2016 3:25 PM EDT 10 mg PRN, Starting on Wed11/09/16 at 1523, Until Wed11/09/16 at 1636, Anesthesia Intra-op, Routine Given 11/09/2016 3:24 PM EDT 10 mg Given 11/09/2016 3:23 PM EDT 10 mg rocuronium (ZEMURON) multi-dose injectio n Given 11/09/2016 12:52 PM EDT 50 mg PRN, Starting on Wed11/09/16 at 1252, Until Wed11/09/16 at 1636, Anesthesia Intra-op, Routine documented in this encounter Care Teams Customer Service Attendant Relationship Specialty Start Date End Date Chau Arshad MD PCP - General Internal Medicine 08/21/16 [address] [place] [address] documented as of this encounter
--- OUTSIDE RECORDS SUMMARY | 2021-10-17 10:51 | XMS_ITS | Encounter Summary ---
:1935 Author Organization [facility] [place] [address] Care Team Providers Name Role Phone Chau Arshad MD Primary Care Provider Reason for Referral Diagnostic Test (Routine) - Closed Specialty Diagnoses / Procedures Referred By Contact Refer red To Contact Radiology Diagnoses Bilateral carotid artery stenosis [facility] [place] Vascular Surg 3v [facility] Rad [facility] Scan Procedures [place] [phone] Phone: Referral ID Status Reason Start Date Expiration Date Visits V isits Requested Authorized [id number] Closed Specialty 08/28/2016 08/28/2017 1 1 Service Requested Encounter Details Date Type Department Care Team Description 08/28/2016 Orders Only Vascular Surgery at [facility] Fischer carotid [facility] [place], [place] [address] Social History Tobacco Use Types Packs/Day Years Used Date Never Smoker Sex Assigned at Date Recorded Not on file documented as of this encounter Plan of Treatment Not on filedocumented as of this encounter Results CT Carotids w Contrast [...] TECHNIQUE: CT angiogram of the carotids and [place] was performed after the intravenous administration of 65 cc Omnipaque 350, MIP reconstructions were reviewed after being processed on an ind epTheater for the Arts workstation COMPARISON: None FINDINGS: Aorta: There is [...] is normal in course and caliber. Visualized [place] is normal. N o aneurysm or severe stenosis is identified. Other: Coronary artery calcifications. 2 cm hypoattenuating left thyroid nodule. Procedure Note Muriel Ayala MD - 09/25/2016Form atting of this note might be different from the original. EXAMINATION: CT CAROTIDS W CONTRAST CLINICAL HISTORY: carotid stenosis TECHNIQUE: CT angiogram of the carotids and [place] of [place] was performed after the intravenous administration of 65 cc Omnipaque 350, MIP reconstructions were reviewed after being processed on an ind ependent workstation COMPARISON: None FINDINGS: Aorta: There is [...] is normal in course and caliber. Visualized [place] is normal. N o aneurysm [...] precerebral arteries without mention of cerebral infarction Bilateral carotid artery stenosis Occlusion and stenosis of multiple and b ilateral precerebral arteries without mention of cerebral infarction documented in this encounter Care Teams Principal Technical Specialist Relationship Specialty Start Date End Date Chau Arshad MD PCP - General Internal Medicine 08/21/16 [address] [place] [address] documented as of this encounter
--- OUTSIDE RECORDS SUMMARY | 2021-10-17 10:51 | XMS_ITS | Encounter Summary ---
:1935 [place] [address] Care Team Providers Name Role Phone Chau Arshad MD Primary Care Provider Encounter Details Date Type Department Care Team Description 12/28/2017 Hospital Encounter Vascular Lab at [facility], Bilateral carotid [facility] [place] [id number] Social History Tobacco Use Types Packs/Day Years [...] by mouth 0 25 mg Tablet daily. multivitamin with minerals Take 1 tablet by 0 Tablet mouth daily. aspirin 81 mg Tablet, Take 81 [...] for Pain. documented as of this encounter Plan of Treatment Not on filedocumented as of this encounter Procedures Procedure Name Priority Date/Time Associated Diagnosis Comme nts CAROTID DUPLEX, Routine 12/28/2017 12:53 PM Bilateral carotid Results for this BILATERAL EDT artery stenosis procedure diana barrera in the results section. documented in this encounter Results Cerebrovascular Duplex, Bilateral (12/28/2017 12:53 PM EDT) Component Value Ref Test Analysis Performed At [facility] Range Method Time Signature VB Text Department: Vascular Surgery Lab VASCUBASE Report Patient: [id number] (ASIM COX) CPT: 92483 ICD10: I65.23 Referring Physician: ANGELA SALEEM ?? [...] infarction documented in this encounter Care Teams Oil Fire Specialist Relationship Specialty Start Date End Date Chau Arshad MD PCP - General Internal Medicine 08/21/16 [address] [place] [address] documented as of this encounter
--- OUTSIDE RECORDS SUMMARY | 2021-10-17 10:51 | XMS_ITS | Encounter Summary ---
:1935 [place] [address] Care Team Providers Name Role Phone Chau Arshad MD Primary Care Provider Reason for Visit Auth/Cert Specialty Diagnoses / Procedures Referred By Contact Refer red To Contact Diagnoses Carotid stenosis, right right carotid stenosis UNKNOWN Procedures PRO THROMBOENDARTECTMY NECK, NECK INCIS @ENDARTERECTOMY, CAROTID, VERTEBRAL,SUBCLAVIAN W\WO PATCH GRAFT (WRVU 21.16) Referral ID Status Reason Start Date Expiration Date Visits Requ ested Visits Authorized [id number] 1 1 Encounter Details Date Type Department Care Team Description 11/09/2016 - Hospital Encounter [facility], Bilateral carotid artery disease; 11/10/2016 [facility] Brenton Richardson Bilateral carotid artery stenosis; [facility] Carotid stenosis, [facility] [address] [place] [id number] [phone] Social History Tobacco Use Types Packs/Day Years [...] Sign Reading Time Taken Comments Blood Pressure 140/64 11/10/2016 10:01 AM EDT Pulse 71 11/09/2016 7:30 PM EDT Temperature 36.3 ??C (97.3 ??F) 11/10/2016 7:39 AM EDT Respiratory Rate 18 11/10/2016 7:39 AM EDT Oxygen Saturation 95% 11/10/2016 10:01 AM EDT Inhaled Oxygen Concentration - - Weight 85.2 kg (187 lb 12.8 oz) 11/09/2016 8:40 PM EDT Height 170.2 cm (5' 7) 11/09/2016 11:06 AM EDT Body Mass Index 29.41 11/09/2016 11:06 AM EDT documented in this encounter Discharge Summaries Lucas Kidd MD - 11/10/2016 10:08 AM EDT Inpatient - Discharge Summary Patient Name: Maximiliano Cox Patient Age: 81 y.o. Birthdate: 1935 Admit date: 11/09/2016 Discharge date and time: 11/10/2016 Attending Physician: Lucille Saleem, * Discharge Diagnoses (Hospital Problems) and Secondary Diagnoses (Chronic Problems): Active Hospital Problems Diagnosis ??? Carotid stenosis, right 11/09/2016: Right carotid endarterectomy Resolved Hospital Problems Diagnosis Date Resolved No resolved problems to display. Active Non-Hospital Problems Diagnosis ??? Carotid artery disease No flow in the distal portion of the R ICA and moderate stenosis 50-60% In the left internal carotid artery ??? Altered mental status ??? Vertigo ??? Male erectile dysfunction ??? Venous insufficiency of leg ??? AK (actinic keratosis) ??? Hypertension ??? BPH (benign prostatic hyperplasia) ??? Autonomic sensory neuropathy ??? Hyperlipidemia ??? OA (osteoarthritis) Operations/Major Procedures: 11/09/2016: Right carotid endarterectomy History of Presentation: 81M with PMHx significant for HTN, HLD, BPH, and tooth extraction for abscess who presents for right carotid endarterectomy. He denies lateralizing symptoms such as numbness orweakness of the extremities. He also denies amaurosis type symptoms. He is otherwise in fairly good health. He has no history of heart disease. ?? Hospital Course: In surgery, R ICA stump pressure was obtained prior to endarterectomy and showed a MAP of 65. No shunt was required. Severe R ICA stenosis was noted with what appeared to be hemorrhagewithin the plaque. Good endpoints noted on the endarterectomy. Interrogated with doppler pencil at case completion with no step ups noted over the endarterectomized segment. Moving all extremities to command at case completion. Pt admitted for postop monitoring. Moore removed in OR and pt voiding spontaneously, good PO intake, minimal pain. Pt ambulates with minimal assist. Right neck incision c/d/i,open to air. Pt remains neuro intact and is cleared for d/c to home. BP 140/64 (BP Location (NBP): Right arm) Pulse 71 Temp 36.3 ??C (97.3 ??F) (Oral) Resp 18 Ht170.2 cm (5' 7) Wt 85.2 kg (187 lb 12.8 oz) SpO2 95% BMI 29.41 kg/m2 Important Studies and Lab Data: Labs: none Studies: none Discharge Conditions/Prognosis: Good Discharge to: Home Discharge Medications: Your Medications Continued medications, unchanged Dose Details amoxicillin 500 mg Cap Commonly known as: AMOXIL Take 500 mg by mouth as needed (Take 4 capsules one hour prior to dental appointment). 500 mg Refills: 0 aspirin 81 mg Tbec Take 81 mg by mouth daily. 81 mg Refills: 0 chlorthalidone 25 mg Tab Commonly known as: HYGROTEN Take 25 mg by mouth daily. 25 mg Refills: 0 ibuprofen 200 mg Tab Commonly known as: ADVIL;MOTRIN Take 200 mg by mouth every 6 hours as needed for Pain. 200 mg Refills: 0 lactobacillus rhamnosus (GG) 10 billion cell Cap Commonly known as: CULTURELLE Take 1 capsule by mouth as needed (take with antibiotics). 1 capsule Refills: 0 multivitamin with minerals Tab Take 1 tablet by mouth daily. 1 tablet Refills: 0 Updated Allergies/ADRs: Allergies Allergen Reactions ??? Clindamycin Instructions Given to Patient at Discharge: Patient Instructions You were admitted to the hospital after having a right carotid endarterectomy. This operation went very well. Dr. Saleem will want you to be seen in approximately one month with a carotid ultrasound of your neck first. This will be scheduled and sent to you in the mail. If for some reason you don't receive this in a week, please call our office at the number below as your follow-up is very important. Call your doctor if: Any change in vision, numbness or inability to move any extremity, inability tospeak and or a headache unresponsive to Tylenol. Activity level: up as tolerated but take it easy for a week or so. Diet: regular Driving: ok after a week if you feel perfect and you were driving before Shower/Bath: showering or bath is ok Wound Care: wash with soap and water, careful shaving as your neck may be a little numb. This will gradually disappear. You should see your Primary Care Physician within 1-2 weeks for a post hospital follow-up. For any problems or questions please call our office at [phone] ZOE Karimi, social media marketing manager Nurse Clinician For issues on weeknights after 5pm and weekends please call [phone] and ask for the Vascular Fellow programmer numerical control. General Instructions None Future Appointments and Orders Future Appointments Provider Department Dept Phone 12/17/2016 10:00 AM Haley Brito [place] [facility] [phone] 12/17/2016 11:15 AM Lucille Saleem MD Vascular Surgery [phone] Future Orders Complete By Expires Carotid Duplex, Unilateral [VAS2 Custom] 12/11/2016 (Approximate) 11/11/2017 Process Instructions: There is no in-house vascular laboratory aide available on weeknights (5pm-8am), weekends, or holidays. IF THIS IS A REQUEST FOR AN EMERGENT STUDY DURING THOSE HOURS, please have the senior provider responsible for the patient page the Vascular Surgery Fellow/Senior Resident programmer numerical control to discuss options. Scheduling Instructions: Questions: Laterality: Right Lower limb right segments: Other Is there a stent?: No Indication for study/signs & symptoms: s/p right carotid endarterectomy Question to be answered: patency Which [facility] location will this be performed?: [place] Discharge References/Attachments: Discharge References/Attachments None Electronically Signed By: Lucas Kidd MD 11/10/2016 documented in this encounter Discharge Instructions Patient InstructionsMarizol Ansari RN - 11/10/2016 8:02 AM EDT You were admitted to the hospital after having a right carotid endarterectomy. This operation went very well. Dr. Saleem will want you to be seen in approximately one month with a carotid ultrasound of your neck first. This will be scheduled and sent to you in the mail. If for some reason you don't receive this in a week, please call our office at the number below as your follow-up is very important. Call your doctor if: Any change in vision, numbness or inability to move any extremity, inability tospeak and or a headache unresponsive to Tylenol. Activity level: up as tolerated but take it easy for a week or so. Diet: regular Driving: ok after a week if you feel perfect and you were driving before Shower/Bath: showering or bath is ok Wound Care: wash with soap and water, careful shaving as your neck may be a little numb. This will gradually disappear. You should see your Primary Care Physician within 1-2 weeks for a post hospital follow-up. For any problems or questions please call our office at [phone] ZOE Karimi, social media marketing manager Nurse Clinician For issues on weeknights after 5pm and weekends please call [phone] and ask for the Vascular Fellow programmer numerical control. documented in this encounter Medications at Time of Discharge [...] documented as of this encounter Progress Notes Giselle Lazcano RN - 11/10/2016 11:35 AM EDT Record reviewed and patient discussed with multidisciplinary team. Patient is medically ready to discharge to home today. No discharge needs identified at this time. Riri Quintana RN - 11/10/2016 11:17 AM EDT Patient discharged to home with no services. IV removed, site benign. Pt. Denies chest pain and shortness of breath. Discussed pain management with patient, pain tolerable. Patient medicated prior to discharge. Patient has all belongings and supplies needed. Discharge instructions and prescriptions were given and reviewed. All questions answered. Patient verbalizes understanding. Patient encouraged to call with questions or concerns. Patient left floor via wheelchair and family per private vehicle Kamini Leblanc RN - 11/09/2016 8:52 PM EDT Pt admitted from PACU with family at bedside. A&O x4. No complaints of pain. Pt c/o throat soreness. MD Gomez paged. Radial and pedal pulses palpable. Skin warm and dry. Vitals WNL. Due to void. Encouraging turns. Incision on right neck puffy. aware. Pt resting in bed. Call light within reach. Kamini Leblanc RN Hever Gomez MD - 11/09/2016 8:43 PM EDT Post-op Check Patient Name: Maximiliano Cox Patient Age: 81 y.o. Attending Physician: Lucille Saleem, * Maximiliano Cox is a 81 y.o. male s/p Procedure(s) (LRB): @ENDARTERECTOMY, CAROTID, VERTEBRAL,SUBCLAVIAN W\WO PATCH GRAFT (WRVU 21.16) (Right) S: Pt seen, examined and w/o complaints; denies headache; denies f/c/n/v, chest pain, SOB. Pain controlled with tylenol. Making jokes at beside. O: Last value Range last 24hrs Temperature Temp: 37 ??C (98.6 ??F) Temp: [36.4 ??C (97.5 ??F)-37 ??C (98.6 ??F)] Heart Rate Heart Rate: 71 Heart Rate: [59-74] Blood Pressure BP: 118/71 BP: (118-169)/(42-91) Respiratory Rate Resp: 16 Resp: [15-19] SpO2 SpO2: 95 % SpO2: [92 %-100 %] I/O this shift: In: 350 [I.V.:350] Out: - General: NAD, A/O x 3 HEENT: NC/AT, PERRL, EOMI CV: RRR, no appreciable murmurs Pulm: CTAB, no w/r/r Abd: soft, NT/ND, benign Extremity: no c/c/e Skin: Warm, Dry Neuro: CN 2-12 grossly intact, good motor strength in all extremities, denies headache Incision: Incision c/d/i. No evidence of hematoma/seroma/infection Drains: None Recent Labs 11/09/16 1032 WBC 8.3 HGB 16.6* HCT 49.1* PLATELET 187 Recent Labs 11/09/16 1032 NA 139 K 4.4 CL 100 CO2 25 BUN 41* CREATININE 1.16 GLUCOSE 96 CALCIUM 10.5 A/P: Maximiliano Cox is a 81 y.o. male patient s/p above procedures currently in stable condition andrecovering well after surgery. - him clerk grossly intact; denies headache - Pain well controlled - Hemodynamically stable - Moore out in PACU; Waiting for patient to pee; bladder scanned for 127 - Continue post-op plan Hever Gomez MD 11/09/2016 8:48 PM documented in this encounter H&P Notes Hari Reyes MD - 11/09/2016 11:44 AM EDT Images from the original note were not included. Surgery History and Physical HPI: 81M with PMHx significant for HTN, HLD, BPH, and tooth extraction for abscess who presents for rightcarotid endarterectomy. He denies lateralizing symptoms such as numbness or weakness of the extremities. He also denies amaurosis type symptoms. He is otherwise in fairly good health. He has no historyof heart disease. Review of Systems: A full review encompassing at least 10 organ systems including general, neuro, pulm, cardiac, GI, , MSK, Endo, and psych was negative other than that listed in the HPI Medical History HTN HLD BPH Tooth abscess Surgical History No previous vascular surgeries Social History Non-smoker Non-drinker Family History Negative for thrombosis or bleeding disorders Medications No current facility-administered medications on file prior to encounter. Current Outpatient Prescriptions on File Prior to Encounter Medication Sig Dispense Refill ??? aspirin 81 mg Tablet, Delayed Release (E.C.) Take 81 mg by mouth daily. ??? lactobacillus rhamnosus, GG, (CULTURELLE) 10 billion cell Capsule Take 1 capsule by mouth as needed (take with antibiotics). ??? amoxicillin (AMOXIL) 500 mg Capsule Take 500 mg by mouth as needed (Take 4 capsules one hour prior to dental appointment). ??? ibuprofen (ADVIL;MOTRIN) 200 mg Tablet Take 200 mg by mouth every 6 hours as needed for Pain. Allergies Clindamycin Physical Exam Temp: [36.6 ??C (97.9 ??F)] Heart Rate: [66] Resp: [18] BP: (166)/(91) SpO2: [100 %] Heart Rate from SPO2: -- General: alert, cooperative, no acute distress HEENT: normocephalic, atraumatic Neck: trachea midline CVS: regular rate, no murmurs rubs or gallops Pulm: clear to auscultation bilaterally Abd: soft, non tender, non distended Ext: wwp Neuro: No focal deficits, facial expressions symmetric Labs Last 3 wbc, hgb, hct plt Recent Labs 11/09/16 1032 09/25/16 1408 WBC 8.3 6.4 HGB 16.6* 14.1 HCT 49.1* 43.9 PLATELET 187 172 Last 3 Lytes Recent Labs 11/09/16 1032 09/25/16 1408 NA 139 141 K 4.4 4.0 CL 100 103 CO2 25 23 BUN 41* 38* CREATININE 1.16 1.15 Last 3 Coags No results for input(s): PT, INR, PTT in the last 168 hours. Imaging: CTA Carotids IMPRESSION 1. Severe stenosis of the proximal right internal carotid artery with string sign. 2. Less than fifty percent narrowing of the proximal left internal carotid artery. 3. Focal moderate stenosis within the right intradural vertebral artery. 4. 2 cm hypodense left thyroid nodule, consider ultrasound and fine-needle aspiration if clinically indicated. Studies: Carotid duplex Findings: ICA Proximal, Right ?PSV (cm/s): 442 ?EDV (cm/s): 153 ?ICA/CCA: 12.3 ?Plaque Structure: Mixed Echolucent ?Plaque Surface: Irregular ?%Stenosis: 80-99% ICA Middle, Right ?PSV (cm/s): 116 ?EDV (cm/s): 16 ?ICA/CCA: 3.2 ICA Distal, Right ?PSV (cm/s): 18 ?EDV (cm/s): 8 ?ICA/CCA: 0.5 CCA Distal, Right ?PSV (cm/s): 36 ?EDV (cm/s): 6 ?%Stenosis: <50% CCA Proximal, Right ?PSV (cm/s): 110 ?EDV (cm/s): 0 External Carotid Artery, Right ?PSV (cm/s): 249 ?EDV (cm/s): 9 ?%Stenosis: >50% Vertebral, Right ?PSV (cm/s): 36 ?EDV (cm/s): 12 ?Direction of Flow: Antegrade ICA Proximal, Left ?PSV (cm/s): 142 ?EDV (cm/s): 49 ?ICA/CCA: 2.0 ?Plaque Structure: Echogenic ?Plaque Surface: Irregular ?%Stenosis: 16-49% ICA Distal, Left ?PSV (cm/s): 64 ?EDV (cm/s): 23 ?ICA/CCA: 0.9 CCA Distal, Left ?PSV (cm/s): 71 ?EDV (cm/s): 15 ?%Stenosis: <50% CCA Proximal, Left ?PSV (cm/s): 167 ?EDV (cm/s): 27 External Carotid Artery, Left ?PSV (cm/s): 100 ?EDV (cm/s): 6 ?%Stenosis: <50% Vertebral, Left ?PSV (cm/s): 37 ?EDV (cm/s): 9 ?Direction of Flow: Antegrade Interpretation: RIGHT: There is [...] ??No previous study in our vascular lab database for comparison. EKG Assessment & Plan 81M with asymptomatic R ICA stenosis of greater than 80%. Plan for R carotid endarterectomy today. All risks, benefits, and alternatives reviewed. Marked and consented. Hari Reyes MD 11/09/2016 11:45 AM documented in this encounter Miscellaneous Notes Op Note - Hari Reyes MD - 11/09/2016 6:48 PM EDT [facility] [place] Operative Note Patient Name: Maximiliano Cox : [id number] MR#: [id number] Case Date: 11/09/2016 Surgeon: Surgeon(s) and Role: * Lucille Saleem MD - Primary * Hari Reyes MD - Resident-Gravure Printing Machinist Preoperative diagnosis: Asymptomatic right carotid stenosis Postoperative diagnosis: Same Procedure: Right carotid endarterectomy with bovine pericardial patch angioplasty ?? Anesthesia: General ?? Findings: R ICA stump pressure was obtained prior to endarterectomy and showed a MAP of 65. No shuntwas required. Severe R ICA stenosis was noted with what appeared to be hemorrhage within the plaque.Good endpoints noted on the endarterectomy. Interrogated with doppler pencil at case completion withno step ups noted over the endarterectomized segment. Moving all extremities to command at case completion ?? Complications: None ?? Estimated Blood Loss: 75 mL ? Fluids: 1.8L crystalloid ?? PRBCs: none (See Anesthesia Record/Report for Other Blood Products) ? Urine Output: 500 mL ?? Drains: None ?? Disposition: awakened from anesthesia, extubated and taken to the recovery room in a stable condition, having suffered no apparent untoward event. ?? Condition: doing well without problems Specimens removed during surgery: Carotid plaque (not sent to pathology) Surgical Closure: Primary Closure - closure of ALL tissue levels during the original surgery regardless of wires, wickes, drains, or other devices extruding through the incision Disposition: awakened from anesthesia, extubated and taken to the recovery room in a stable condition, having suffered no apparent untoward event. Condition: doing well without problems (Please see the Surgical Encounter Summary for any Implant and Specimen details pertinent to this patient.) HPI/Surgical Indications: 81M with PMHx significant for HTN, HLD, BPH, and tooth extraction for abscess who presents for rightcarotid endarterectomy. He denies lateralizing symptoms such as numbness or weakness of the extremities. He also denies amaurosis type symptoms. He is otherwise in fairly good health. He has no historyof heart disease. This measures at approximately 80% stenosis by CT and duplex. Procedure Description: After informed consent was obtained the patient was brought back to the operating room and placed supine on the OR table. General anesthesia was induced and the patient was intubated with an ETT. Additional support lines (moore, arterial line, PIVs) were placed. Preoperative antibiotics were given. A timeout was performed. Attention was then turned to the patient's right neck, which was prepped and draped in the standard sterile fashion. A longituidnal incision was made along the anterior border of the sternocleidomastoid. The subcutaneous tissue and platysma were divided using a combination of blunt, sharp, and electrocautery dissection. The sternocleidomastoid and internal jugular vein were retracted laterally to expose the bifurcation. This proved to be quite difficult due to significant overlying fatty and lymphatic tissue. This was mobilized and retracted laterally. The common carotid artery, external carotid artery, superior thyroid artery and internal carotid artery were each circumferentially dissected and encircled with vessel loops. There were several branches arising simultaneously from the proximal external carotid andthese were encircled together with a vessel loop. The vagus and hypoglossal nerves were identified and preserved. The ansa cervicalis was identified directly overlying the carotid bifurcation. This was divided between 3-0 silk ties to allow for appropriate surgical exposure. Satisfied with our exposure, systemic heparin was given. Next, the internal, common and external carotid arteries were clamped.ICA stump pressure was then measured and MAP of 65mmHg was noted so no shunt was used. An arteriotomy was performed in a longitudinal fashion with an 11 blade. This was extended onto the common carotidartery proximally and the internal carotid artery distally using Pott's scissors. Using a [place] elevator, endarterectomy of the common carotid and internal carotid arteries was performed. The distal internal carotid artery plaque was feathered off, leaving a smooth endpoint. Eversion endarterectomy of the external carotid artery was performed and the carotid plaque was removed. Once this was removed,the endarterectomy site was inspected for loose arterial wall tissue that was removed with fine forceps. The endarterectomy endpoints were inspected to ensure that they were adequate. No tacking sutures were required . Once we were satisfied with our dissection endarterectomy, bovine pericardial patchangioplasty was performed in a standard fashion with running 6- 0 Prolene. Once this was nearly complete, the arteries were flushed to expel any air or debris. The patch angioplasty was then completed, and the carotid artery was re-perfused. Doppler pencil was then used upon completion and there was aud ible diastolic flow and no audible step up across the endarterectomized segment. Once we were satisfied with our results on ultrasound, protamine was administered to reverse the heparin. Hemostasis wasachieved with thrombin-soaked gelfoam and floseal. The wound was then closed by reapproximating the s ternocleidomastoid muscle in one layer with running 3-0 vicryl. This followed by the platysma in a second layer with running 3-0 vicryl in continuity with a deep dermal running layer.. Skin was closed with 4-0 Monocryl followed by Dermabond. The patient was awoken from anesthesia, noted to be neurologically intact and transferred to the Recovery Room in stable condition. Dr. Saleem, was present and scrubbed for the entire procedure. Infection Bundle used? N/A Associated attestation - Lucille Saleem MD - 11/12/2016 5:43 PM EDT Attestation: Case Date: 11/09/2016 I was present and scrubbed for the entire procedure. LUCILLE SALEEM MD 11/12/2016 Brief Op Note - Hari Reyes MD - 11/09/2016 4:40 PM EDT Brief Operative Note Patient Name: Maximiliano Cox : [id number] MR#: [id number] Case Date: 11/09/2016 Surgeon: Surgeon(s) and Role: * Luclile Saleem MD - Primary * Hari Reyes MD - Resident-Gravure Printing Machinist Preoperative diagnosis: Asymptomatic right carotid stenosis Postoperative diagnosis: Same Procedure: Right carotid endarterectomy with bovine pericardial patch angioplasty Anesthesia: General Findings: R ICA stump pressure was obtained prior to endarterectomy and showed a MAP of 65. No shuntwas required. Severe R ICA stenosis was noted with what appeared to be hemorrhage within the plaque.Good endpoints noted on the endarterectomy. Interrogated with doppler pencil at case completion withno step ups noted over the endarterectomized segment. Moving all extremities to command at case completion Complications: None Estimated Blood Loss: 75 mL Fluids: 1.8L PRBCs: none (See Anesthesia Record/Report for Other Blood Products) Urine Output: 500 mL Drains: None Disposition: awakened from anesthesia, extubated and taken to the recovery room in a stable condition, having suffered no apparent untoward event. Condition: doing well without problems (Please see the Surgical Encounter Summary for any Implant and Specimen details pertinent to this patient.) Infection Bundle used? N/A documented in this encounter Plan of Treatment Not on filedocumented as of this encounter Procedures Procedure Name Priority Date/Time Associated Comments Diagnosis IMPLANTABLE DEVICES 11/11/2016 12:00 Resu lts for this SCAN AM EDT procedure are i n the results section. ECG SCAN 11/11/2016 12:00 Results for this AM EDT procedure are i n the results section. @ENDARTERECTOMY, Yes 11/09/2016 12:43 Bilateral carotid CAROTID, PM EDT artery stenosis VERTEBRAL,SUBCLAVIAN W\WO PATCH GRAFT (WRVU 21.16) HEMOGRAM Routine 11/09/2016 10:32 Bilateral carotid Result s for this AM EDT artery disease procedure are in the results section. BASIC METABOLIC PANEL Routine 11/09/2016 10:32 Bilateral carot id Results for this (NON-FASTING) AM EDT artery disease procedure ar e in the results section. documented in this encounter Results Carotid Duplex, Unilateral (12/17/2016 10:01 AM EDT) Component Value Ref Test Analysis Performed At [facility] Method Time Signature VB Text Department: Vascular Surgery Lab [facility]AS[facility] Report Patient: [id number] (MAXIMILIANO COX) CPT: 76276 ICD10: I65.21 Referring Physician: LUCILLE SALEEM ?? Phone: Indications: ??S/P R CEA ICD10 Diagnosis Code: I65.21 Findings: ICA Proximal, Right ? PSV (cm/s): 49 ? EDV (cm/s): 13 ? ICA/CCA: 0.9 ? Plaque Structure: Echogenic ? Plaque Surface: Smooth ? %Stenosis: <15% ICA Distal, Right ? PSV (cm/s): 54 ? EDV (cm/s): 16 ? ICA/CCA: 1.0 CCA Distal, Right ? PSV (cm/s): 56 ? EDV (cm/s): 12 ? %Stenosis: Minimal CCA Proximal, Right ? PSV (cm/s): 117 ? EDV (cm/s): 11 External Carotid Artery, Right ? PSV (cm/s): 37 ? EDV (cm/s): 0 ? %Stenosis: <50% Vertebral, Right ? PSV (cm/s): 30 ? EDV (cm/s): 11 ? Direction of Flow: Antegrade Interpretation: RIGHT: Widely patent carotid bifurcation and pro ximal internal carotid artery with no evidence of residual stenosis s/p CEA. Significant improvement from pre-op exam. The bifurcation level is in the mid neck. Vertebral Artery Data: Patent RIGHT vertebral artery with no rmal antegrade flow. Previous Carotid Studies: Date ?RIGHT ICA St enosis ??PSV ?? Ratio ?? LEFT ICA Stenosis ?? PSV ?? Ratio ? 80-99% ? 442 ?? 12.30 ?16-49% ? 142 ?? 2.00 Current Exam ? <15% ? 49 ?1.00 ? n/a ?n/a ?? n/a Electronically Signed by: LUCILLE SALEEM on 2016-12-17 04:22:00 PM VB Text End of Report VASCUBASE Report Specimen (Source) Anatomical Collection Method Collection Time Re ceived Time Location / / Volume Laterality 12/17/2016 10:01 AM EDT Lucille Saleem MD VASCULAR ORDERABLES Performing Organization Address City/State/ZIP Code Phon e Number VASCUBASE SCAN DOC: IMPLANTABLE DEVICES (11/11/2016 12:00 AM EDT) Narrative 11/11/2016 12:00 AM EDT This result has an attachment that is no t available. Ordered by an unspecified provider. Scanning Provider MEDIA MGR SCAN EXT ORDR/RSLT SCAN DOC: ECG (11/11/2016 12:00 AM EDT) Narrative 11/11/2016 12:00 AM EDT This result has an attachment that is no t available. Ordered by an unspecified provider. Scanning Provider MEDIA MGR SCAN EXT ORDR/RSLT (ABNORMAL) Basic Metabolic Panel (non-fasting) (11/09/2016 10:32 AM EDT) athologist Signature Glucose Lvl 96 65 - 199 [facility] mg/dL [facility] Comment: Diabetes: >=200 mg/dL plus symp toms BUN 41 (H) 10 - 20 mg/dL [facility] Creatinine 1.16 0.80 - 1.50 mg/dL [facility] Comment: Please note that the pediatric reference intervals supplied above were not validated at [facility]. Results from pediatri c patients should be interpreted in conjunction to the patient's age, height and muscle mass. Sodium 139 135 - 145 mmol/L [facility] Potassium 4.4 3.5 - 5.0 mmol/L [facility] Comment: Please note: ??Patients with WBC >100,00 0 may have falsely elevated Potassium levels. ??For accurate Potassium quantif ication in these patients send serum separator tube (gold top) for subsequent determinations. ??Contact the Clinical Chemistry Laboratory if there are any qu estions. Chloride 100 98 - 107 mmol/L [facility] CO2 25 22 - 31 mmol/L [facility] Anion Gap 14 5 - 15 mmol/L [facility] Calcium 10.5 8.5 - 10.5 mg/dL [facility] Estimated GFR >60 >=60 [facility] Comment: This estimated GFR (eGFR) [...] the following links into your internet browser. [email or web address] Specimen Anatomical Collection Method Collection Time Receive d Time (Source) Location / / Volume Laterality Blood specimen 11/09/2016 10:32 7 (specimen) AM EDT 10:39 AM EDT Resulting Agency Comment Spec In Lab Lucille Saleem MD CHEMISTRY ORDERABLES Performing Organization Address City/State/[place] [address] (ABNORMAL) Hemogram (11/09/2016 10:32 AM EDT) Analysis Performed At Patho logist Time Signature WBC 8.3 4.0 - 9.5 [facility] x10(3)/[facility] LABORATORY RBC 5.50 4.58 - [facility] 5.54 [facility] x10(6)/[facility] LABORATORY Hemoglobin 16.6 (H) 13.7 - [facility] 16.5 gm/dL [facility] Hematocrit 49.1 (H) 40.5 - MELODY DONALDSON 48.5 % [facility] MCV 89.3 82.9 - [facility] 93.1 [facility] MCH 30.2 27.5 - MELODY DONALDSON 32.1 pg [facility] MCHC 33.8 32.0 - MELODY DONALDSON 35.7 gm/dL [facility] Platelets 187 145 - 357 [facility] x10(3)/[facility] LABORATORY RDWSD 39.7 36.0 - MELODY MENDOZA 45.0 [facility]ORY RDWCV 12.1 11.4 - [facility] 13.8 % [facility] MPV 10.8 7.6 - 12.9 [facility] LABORATORY nRBC % Auto 0.0 % [facility] nRBC Abs Auto 0.000 0.000 - [facility] 0.000 [facility] x10(3)/[facility]OR[facility]ORY Specimen Anatomical Collection Method Collection Time Receive d Time (Source) Location / / Volume Laterality Blood specimen 11/09/2016 10:32 7 (specimen) AM EDT 10:39 AM EDT Resulting Agency Comment Spec In Lab Lucille Saleem MD HEMATOLOGY ORDERABLES Performing Organization Address City/State/[place] [address] documented in this encounter Visit Diagnoses Diagnosis Bilateral carotid artery disease Unspecified disorders of arteries and ar terioles Bilateral carotid artery stenosis Occlusion and stenosis of multiple and b ilateral precerebral arteries without mention of cerebral infarction Carotid stenosis, right Occlusion and stenosis of carotid artery without mention of cerebral infarction documented in this encounter Admitting Diagnoses Diagnosis Carotid stenosis, right Occlusion and stenosis of carotid artery without mention of cerebral infarction documented in this encounter Administered Medications Inactive Administered Medications - up to 3 most recent administrations Medication Order MAR Action Action Date Dose Rate Site aspirin EC tablet 81 mg Given 11/10/2016 8:09 AM EDT 81 mg 81 mg, Oral, DAILY, First dose on Wed11/09/16 at 2045, Until Discontinued, Routine chlorthalidone (HYGROTEN) tablet 25 mg Given 11/10/2016 8:11 AM EDT 25 mg 25 mg, Oral, DAILY, First dose on Wed11/10/16 at 0900, Until Discontinued, Routine hydrALAZINE (APRESOLINE) injection 10 mg Given 11/09/2016 5:04 PM EDT 10 mg 10 mg, Intravenous, ONCE, 1 dose, On Wed11/09/16 at 1700, Give for systolic over 160 mmHg, PACU Recovery, Routine lactated Ringers infusion 1,000 mL New Bag 11/09/2016 3:00 PM EDT 1,000 mL, at 100 mL/hr, Intravenous, CONTINUOUS, Starting on Wed11/09/16 at 1130, Until Wed11/09/16 at 2015, Day of Surgery (Day of Procedure) New Bag 11/09/2016 12:43 PM EDT New Bag 11/09/2016 11:30 AM EDT 1,000 mLs 100 mL/hr lactated Ringers infusion 1,000 New Bag 11/09/2016 4:58 PM EDT 1,000 mLs 100 mL/hr mL 1,000 mL, at 100 mL/hr, Intravenous, CONTINUOUS, Starting on Wed11/09/16 at 1615, Until Wed11/09/16 at 2015, PACU Recovery ondansetron (ZOFRAN) injection 4 mg 4 mg, Intravenous, EVERY 8 [address] PRN, St arting on Wed11/09/16 at 202, Until Wed11/10/16 at 1336, Nausea, May repeat times one in 30 min utes if ineffective ondansetron (ZOFRAN) tablet 4 mg 4 mg, Oral, EVERY 8 HOURS PRN, Starting on Wed11/09/16 at 202, Until Wed11/10/16 at 1336, Nausea, Vomiting, If multiple antiemetics are ordered, use ondansetron first. PO Preferred. If patient unable to take PO, may give IV if ordered. May repeat times one in 45 minutes if ineffective. , Routi ne phenol 1.4% (CHLORASEPTIC) spray 1 spray Given 11/09/2016 9:27 PM EDT 1 spray 1 spray, Oral, EVERY 4 HOURS PRN, Starting on Wed11/09/16 at 2101, Until Wed11/09/16 at 2343, Irritation, For dry throat, STAT phenol 1.4% (CHLORASEPTIC) spray 1 spray 1 spray, Oral, EVERY 2 HOURS PRN, Starti ng on Wed11/09/16 at 2345, Until Wed11/10/16 at 1336, Irritation, For dry throat, STAT documented in this encounter Active and Recently Administered Medications Times are shown in EDT. Scheduled Medication Order 11/08/2016 11/09/2016 11/10/2016 aspirin EC tablet 81 mg 2127 (Not Given - Provider: Kamini Leblanc RN - Reason: Patient/family refused) 0809 (Given - Provider: Riri Quintana RN) 81 mg, Oral, DAILY, First dose on Wed at 2045, Until Discontinued, Routine ceFAZolin (ANCEF) 2g in dextrose 5% 100 mL (COMPLETED) 1302 (Given - Provider: Oscar Tapia MD)1559 (Given - Provider: Buddy Ford CRNA) 2 g, Intravenous, ONCE, 1 dose, 11/09 at 1130, Administer over 30 Minutes, Redose every 3 hours if CrCl is greater than 20. Redose every 8 hours if CrCl is less than 20., Day of Surgery (Day of Pr ocedure), Indication for (Active or Suspected): Prophylaxis chlorthalidone (HYGROTEN) tablet 25 mg 0811 (Given - Provider: Riri Quintana RN) 25 mg, Oral, DAILY, First dose on 04/28 at 0900, Until Discontinued, Routine hydrALAZINE (APRESOLINE) injection 10 mg (COMPLETED) 1704 (Given - Provider: Dilip Salinas RN) 10 mg, Intravenous, ONCE, 1 dose, Wed at 1700, Give for systolic over 160 mmHg, PACU Recovery, Routine Continuous Medication Order 11/08/2016 11/09/2016 11/10/2016 lactated Ringers infusion 1,000 mL (CANCELED) 1130 (New Bag - Provider: Julia Starks RN)1243 (New Bag - Provider: Oscar Tapai MD)1500 (New Bag - Provider: Oscar Tapia MD)1631 (Stopped - Provider: Buddy Ford CRNA) 1,000 mL, at 100 mL/hr, Intravenous, CON TINUOUS, Starting Wed11/09/16 at 1130, Until Wed11/09/16 at 2015, Day of Surgery (Day of Procedure) lactated Ringers infusion 1,000 mL (CANCELED) 1658 (New Bag - Provider: Dilip Salinas RN) 1,000 mL, at 100 mL/hr, Intravenous, CON TINUOUS, Starting Wed11/09/16 at 1615, Until Wed11/09/16 at 2015, PACU Recovery PRN Medication Order 11/08/2016 11/09/2016 11/10/2016 acetaminophen (TYLENOL) tablet 650 mg 650 mg, Oral, EVERY 4 HOURS PRN, Startin g Wed11/09/16 at 1743, Until Wed11/10/16 at 1336, Pain, Fever, Maximum dose of acetaminophen is 4000 mg from all sources in 24 hours., Routine hydrALAZINE (APRESOLINE) injection 10 mg 10 mg, Intravenous, EVERY 1 HOUR PRN, St arting Wed11/09/16 at 1654, Until Wed11/10/16 at 1336, High Blood Pressure, for blood pressure > 160 and HR <70, Routine lidocaine (XYLOCAINE) 10 mg/mL (1 %) injection 3 mg (COMPLET ED) 1346 (Given - Provider: Lucille Saleem MD - Comment: cartoid bulb injection) 3 mg (0.3 mL), Subcutaneous, ONCE PRN, 1 dose, Starting Wed11/09/16 at 1108, Until Discontinued, for discomfort with PIV insertion, Day of Surgery (Day of Procedure), Routine meTOPROLOL (LOPRESSOR) injection 5 mg 5 mg, Intravenous, EVERY 5 MIN PRN, Star ting Wed11/09/16 at 1654, Until Wed11/10/16 at 1336, High Blood Pressure, For SBP >160 and HR >70, Routine ondansetron (ZOFRAN) injection 4 mg(Linked Group 1) 4 mg, Intravenous, EVERY 8 HOURS PRN, St arting Wed11/09/16 at 2022, Until Wed11/10/16 at 1336, Nausea, May repeat times one in 30 minutes if ineffective ondansetron (ZOFRAN) tablet 4 mg(Linked Group 1) 4 mg, Oral, EVERY 8 HOURS PRN, Starting Wed11/09/16 at 2022, Until Wed11/10/16 at 1336, Nausea, Vomiting, If multiple antiemetics are ordered, use ondansetron first. PO Preferred. If patient unable to take PO, may give IV if ordered. May repeat times one in 45 minutes if ineffective. , Routine phenol 1.4% (CHLORASEPTIC) spray 1 spray (CANCELED) 2126 (Given - Provider: Kamini Leblanc RN) 1 spray, Oral, EVERY 4 HOURS PRN, Starti ng Wed11/09/16 at 2101, Until Wed11/09/16 at 2343, Irritation, For dry throat, STAT phenol 1.4% (CHLORASEPTIC) spray 1 spray 1 spray, Oral, EVERY 2 HOURS PRN, Starti ng Wed11/09/16 at 2345, Until Wed11/10/16 at 1336, Irritation, For dry throat, STAT Linked Groups Order Group 1: ondansetron (ZOFRAN) tablet 4 mgJump to med 4 mg, Oral, EVERY 8 HOURS PRN, Starting Wed11/09/16 at 2022, Until Wed11/10/16 at 1336, Nausea, Vomiting
If multiple antiemetics are ordered, use ondansetron first. PO Preferred. If patient unable to take PO, may give I V if ordered. May repeat times one in 45 minutes if ineffective.
Routine Or ondansetron (ZOFRAN) injection 4 mgJump to med 4 mg, Intravenous, EVERY 8 [address] PRN, St arting Wed11/09/16 at 2022, Until Wed11/10/16 at 1336, Nausea
May repeat times one in 30 minutes if ineffective
documented in this encounter Care Teams Adult Basic Studies Teacher Relationship Specialty Start Date End Date Chau Arshad MD PCP - General Internal Medicine 08/21/16 [address] [place] [address] documented as of this encounter
--- OUTSIDE RECORDS SUMMARY | 2021-10-17 10:51 | XMS_ITS | Encounter Summary ---
:1935 [place] [address] Care Team Providers Name Role Phone Chau Arshad MD Primary Care Provider Encounter Details Date Type Department Care Team Description 12/17/2016 Hospital Encounter Vascular Lab at [place], Haley Mak tid stenosis, Melody Zhou R, [place] [id number] Social History Tobacco Use Types Packs/Day Years [...] Procedure Name Priority Date/Time Associated Comments Diagnosis CAROTID DUPLEX, Routine 12/17/2016 10:01 AM Carotid stenosis, Results for this UNILATERAL EDT right procedure are i n the results section. documented in this encounter Results Carotid Duplex, Unilateral (12/17/2016 10:01 AM EDT) Component Value Ref Test Analysis Performed At [facility] Range Method Time Signature VB Text Department: Vascular Surgery Lab VASCUBASE Report Patient: [id number] (ASIM CXO) CPT: 47656 ICD10: I65.21 Referring Physician: ANGELA SALEEM ?? Phone: Indications: ??S/P R CEA [...] n/a ?n/a ?? n/a Electronically Signed by: ANGELA SALEEM on 2016-12-17 04:22:00 PM VB Text End of Report VASCUBASE Report Specimen (Source) Anatomical Collection Method Collection Time Re ceived Time Location / / Volume Laterality 12/17/2016 10:01 AM EDT Angela Saleem MD VASCULAR ORDERABLES Performing Organization Address City/State/ZIP Code Phon e Number VASCU[facility] documented in this encounter Visit Diagnoses Diagnosis Carotid stenosis, right Occlusion and stenosis of carotid artery without mention of cerebral infarction documented in this encounter Care Teams Paper Final Inspector Relationship Specialty Start Date End Date hCau Arshad MD PCP - General Internal Medicine 08/21/16 [address] [place] [address] documented as of this encounter
--- OUTSIDE RECORDS SUMMARY | 2021-10-17 10:51 | XMS_ITS | Encounter Summary ---
:1935 Author Organization [facility] [place] [address] Care Team Providers Name Role Phone Chau Arshad MD Primary Care Provider Reason for Visit Diagnostic Test (Routine) - Closed Specialty Diagnoses / Procedures Referred By Contact Refer red To Contact Radiology Diagnoses Bilateral carotid artery stenosis [facility]v [facility] Rad Ct Scan Procedures [place] [address] [place] [address] Phone: Referral ID Status Reason Start Date Expiration Date Visits V isits Requested Authorized [id number] Closed Specialty 08/28/2016 08/28/2017 1 1 Service Requested Encounter Details Date Type Department Care Team Description 09/25/[address] Scan at [facility] Lucille Rivera [facility] [place] [address] VASCULAR SURGERY [place], [place] [address] (Wo rk) Social History Tobacco Use Types [...] the results section. documented in this encounter Visit Diagnoses Not on filedocumented in this encounter Administered Medications Inactive Administered Medications - up to 3 most recent administrations Medication Order MAR Action Action Date Dose Rate Site iohexol (OMNIPAQUE) 350 mg/mL Given 09/25/2016 10:54 AM EDT 22,7 50 mg solution 22,750 mg 22,750 mg (65 mL), Intravenous, ONCE PRN, 1 dose, Starting on Wed09/25/16 at 1054, Until Wed09/25/16 at 1054, Per Protocol, Warning Vesicant/Irritant Medication , Routine documented in this encounter Care Teams Refinery Operator Gas Plant Relationship Specialty Start Date End Date Chau Arshad MD PCP - General Internal Medicine 08/21/16 [address] [place] [address] documented as of this encounter
--- OUTSIDE RECORDS SUMMARY | 2021-10-17 10:51 | XMS_ITS | Encounter Summary ---
:1935 Author Organization [facility] Address [address] [place] [address] Care Team Providers Name Role Phone Unknown, Provider Primary Care Provider Encounter Details Date Type Department Care Team Description 02/27/2016 Results Only [facility] Aaron Archer, DO [phone] [facility] [facility] [place], [place] [phone] Social History Tobacco Use Types Packs/Day Years Used Date Never Assessed Sex Assigned at Date Recorded Not on file documented as of this encounter Plan of Treatment Not on filedocumented as of this encounter Procedures Procedure Name Priority Date/Time Associated Diagnosis Comme nts SURGICAL PATHOLOGY Routine 02/27/2016 9:15 EST Re sults for this procedure are i n the results section. documented in this encounter Results SURGICAL PATHOLOGY (02/27/2016 9:15 EST) Pathology SURGICAL PATHOLOGY REPORT [facility] MEDICAL Report: Reports generated via electronic interface conta in original data; CENTER however they are lacking the format of the original re port. LABORATORY Caution should be taken when reading/interpretin g unformatted reports. SERVICES Name: ? ASIM REID ? Accession #: ? [id number] ? : ? 1935 (Age: 81) ??M ? Collect Date: ? 02/27/2016 ? Location: ? [facility] ? Receive Date: ? 016 ? Provider: AARON ARCHER DO Copy to: KALEB HAM MD ? Final Pathologic Diagnosis: SKIN OF SCALP, EXCISIONAL BIOPSY: - Actinic keratosis, hypertrophic type. ?? - Actinic keratosis present at peripheral margin. ?? Microscopic Description: The stratum corneum is markedly thickene d by orthohyperkeratosis and confluent parakeratosis. ??The epidermis is hyperplastic with ex pansion of the stratum spinosum by enlarged keratin ocytes with abundant glassy eosinophilic cytoplasm. The basal keratinocytes show a variable degree of nucl ear atypia including enlargement, dispolarity, an d overlap. ??The dermis is marked by solar elastosis, vascular ectasia, and a lymphohistiocytic infiltrate. ??(Dr. Gurrola)/n Document reviewed and electronically signed by: GENET GURROLA MD Report ??Date: 03/02/2016 15:30 By the signature above, the attending physician certif ies that he/she has personally conducted a gross and/or microscopic examin ation of the described specimens and rendered or confirmed the above diagnosi s. Specimen(s) Received: Excision scalp lesion Clinical History: Scalp lesion Gross Description: ? Received in formalin labelled with proper patient identification (initials C, W) and excision scalp lesion is an unoriented rou ghly ovoid excision of skin (1.4 x 0.9 cm and is excised to a depth of 0.1 cm). There is a dark benitez, lobular, firm and focally um bilicated nodule that measures 1.3 x 0.9 cm x 0.8 cm in height. The margins are inked blue. The speci men is serially sectioned and entirely submitted with the three centra l sections in 1 and 2 and the two tips in 3, reverse en face. STEVEN Gallo (ASCP) 02/28/2016 11:49 AM End of Report Specimen Performing Organization Address City/State/ZIP Code Phon e Number [facility] [address] [place], [place] [id number] SERVICES documented in this encounter Visit Diagnoses Not on filedocumented in this encounter Care Teams Electrical Maintenance Technician Relationship Specialty Start Date End Date Unknown, Provider, PCP - General 02/28/16 03/01/16 documented as of this encounter
--- OUTSIDE RECORDS SUMMARY | 2021-10-17 10:51 | XMS_ITS | Encounter Summary ---
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 He is scheduled for surgery on11/09 for carotid endarterectomy and feels he needs to have surgery sooner. He said that his left side is working awfully hard and that last night he was having some left-sided weakness. When asked if he went to the ED he denies stating he isn???t going to go to the ED because they won???t do the surgery there. He was offered a clinic visit and declined saying he doesn???t need a clinic visit, he needs surgery. Spoke with OR sales development executive about scheduling options and it was determined that there wasn???renee sooner availability. He???s upset and can???t understand why the surgeon doesn???t schedule their own surgeries and why he can???t roller picker the phone and have a conversation with his doctor. He alsowants antibiotics to jacobs off any infection that might delay his surgery. He was reassured that thismessage is being relayed to his provider with the request to call him. It was repeated to him the imp ortance of either calling 911 or reporting to nearest ED if he develops any stroke-like symptoms. He, again, said he wouldn???t go to the ED. documented in this encounter Plan of Treatment Not on filedocumented as of this encounter Visit Diagnoses Not on filedocumented in this encounter Care Teams Cloth Presser Relationship Specialty Start Date End Date Chau Arshad MD PCP - General Internal Medicine 08/21/16 [address] [place] [address] documented as of this encounter
--- OUTSIDE RECORDS SUMMARY | 2021-10-17 10:51 | XMS_ITS | Encounter Summary ---
:1935 Author Organization [facility] [place] [address] Care Team Providers Name Role Phone Chau Arshad MD Primary Care Provider Reason for Visit Reason Onset Date Comments Appointment 09/15/2016 Encounter Details Date Type Department Care Team Description 09/15/2016 Telephone Vascular Surgery at [facility] [place] [address] Social History Tobacco Use Types Packs/Day Years Used Date Never Smoker Sex Assigned at Date Recorded Not on file documented as of this encounter Miscellaneous Notes Telephone Encounter - Melody Fraire - 09/15/2016 11:35 AM EDT Placed a call to patient and left a message on answering machine to let him know that CT scan on 09/25 has had a slight time change and that Dr. Rivera appointment has been moved to 12:45p. documented in this encounter Plan of Treatment Not on filedocumented as of this encounter Visit Diagnoses Not on filedocumented in this encounter Care Teams Shoe Repairman Relationship Specialty Start Date End Date Chau Arshad MD PCP - General Internal Medicine 08/21/16 [address] [place] [address] documented as of this encounter
--- OUTSIDE RECORDS SUMMARY | 2021-10-17 10:51 | XMS_ITS | Encounter Summary ---
:1935 Author Organization [facility] [place] [address] Care Team Providers Name Role Phone Chau Arshad MD Primary Care Provider Reason for Visit Consultation (Routine) - Closed Specialty Diagnoses / Procedures Referred By Contact Refer red To Contact Vascular Surgery Diagnoses discuss further diagnostic studies or treatments for his possibly completely occluded right internal carotid artery. Chau Arshad MD [facility] 3v [address] [place] [address] [place] [address] Phone: Referral ID Status Reason Start Date Expiration Date Visits V isits Requested Authorized [id number] Closed Consult, 08/21/2016 08/21/2017 2 2 [facility] Encounter Details Date Type Department Care Team Description 08/28/2016 Hospital Encounter Vascular Lab at [facility] Bi lateral carotid Melody Kern T, [place] [address] Social History Tobacco Use Types Packs/Day Years Used Date Never Smoker Sex Assigned at Date Recorded Not on file documented as of this encounter Medications at Time of Discharge Medication Sig Dispensed Refills Start Date End Date aspirin 81 mg Tablet, Take 81 mg by mouth 0 Delayed Release (E.C.) daily. amoxicillin (AMOXIL) 500 Take 500 mg by mouth 0 mg Capsule as needed (Take 4 capsules one hour prior to dental appointment). lactobacillus rhamnosus, Take 1 capsule by 0 GG, (CULTURELLE) 10 mouth as needed (take billion cell Capsule with antibiotics). ibuprofen (ADVIL;MOTRIN) Take 200 mg by mouth 0 200 mg Tablet every 6 hours as needed for Pain. documented as of this encounter Plan of Treatment Not on filedocumented as of this encounter Procedures Procedure Name Priority Date/Time Associated Diagnosis Comme nts CAROTID DUPLEX, Routine 08/28/2016 10:38 AM Bilateral carotid Results for this BILATERAL EDT artery stenosis procedure ar e in the results section. documented in this encounter Results Cerebrovascular Duplex, Bilateral (08/28/2016 10:38 AM EDT) Component Value Ref Test Analysis Performed At [facility] Range Method Time Signature VB Text Department: Vascular Surgery Lab VASCUBASE Report Patient: [id number] (ASIM COX) CPT: 63122 ICD10: I65.23 Referring Physician: DANIEL CARREON ?? [...] tabase for comparison. Electronically Signed by: ANGELA SALEME on 2016-08-28 12:53:42 PM VB Text End [...] infarction documented in this encounter Care Teams Jewelry Department Supervisor Relationship Specialty Start Date End Date Chau Arshad MD PCP - General Internal Medicine 08/21/16 [address] [place] [address] documented as of this encounter
--- OUTSIDE RECORDS SUMMARY | 2021-10-17 10:51 | XMS_ITS | Encounter Summary ---
:1935 Author Organization [facility] [place] [address] Care Team Providers Name Role Phone Chau Arshad MD Primary Care Provider Encounter Details Date Type Department Care Team Description 12/28/2017 Office Visit Vascular Surgery at Vivi Scott, Bi lateral carotid [facility] COMMERCIAL LINES ACCOUNT EXECUTIVE artery stenosis [facility] [address] [place], [place] VASCULAR SURGERY [id number] [place] [address] [phone] Social History Tobacco Use Types Packs/Day Years [...] Sign Reading Time Taken Comments Blood Pressure 130/80 12/28/2017 2:53 PM EDT Pulse 60 12/28/2017 2:53 PM EDT Temperature - - Respiratory Rate - - Oxygen Saturation - - Inhaled Oxygen Concentration - - Weight - - Height - - Body Mass Index - - documented in this encounter Progress Notes Vivi Scott, COMMERCIAL LINES ACCOUNT EXECUTIVE - 12/28/2017 2:30 PM EDT OUTPATIENT VASCULAR SURGERY FOLLOW-UP Reason for Visit: carotid stenosis History of Present Illness: Asim Cox is an 82 yo M here for follow-up s/p R CEA on 11/09/16 foraymptomatic high grade R ICA stenosis. He denies any headache or sx of TIA or CVA. Report CVA in April of 2017 Denies chest pain, SOB. Atherosclerotic Risk Factors: (n) DM (y) HTN [...] , Rfl: Allergies Allergen Reactions ??? Clindamycin Physical Exam: 130/80 HR 62 General - NAD, appears stated age Neuro - Alert and Oriented, Motor Sensory grossly intact Cardiac - RRR, no murmurs Lungs - Clear Musculoskeletal- full ROM upper and lower extremities Psych- alert oriented X3 , Extremities - Warm, pink, no edema, brisk capillary refill Vascular Exam: R L Carotid 2/2 bruit (n) 2/2 bruit (n) Radial 2/2 2/2 Carotid Duplex ICA Proximal, Right ?PSV (cm/s): 64 ?EDV (cm/s): 14 ?ICA/CCA: 1.2 ?Plaque Structure: Echogenic ?Plaque Surface: Irregular ?%Stenosis: <15% ICA Distal, Right ?PSV (cm/s): 51 ?EDV (cm/s): 15 ?ICA/CCA: 1.0 CCA Distal, Right ?PSV (cm/s): 52 ?EDV (cm/s): 6 ?%Stenosis: Minimal CCA Proximal, Right ?PSV (cm/s): 86 ?EDV (cm/s): 6 External Carotid Artery, Right ?PSV (cm/s): 90 ?EDV (cm/s): 0 ?%Stenosis: <50% Vertebral, Right ?PSV (cm/s): 64 ?EDV (cm/s): 18 ?Direction of Flow: Antegrade ICA Proximal, Left ?PSV (cm/s): 95 ?EDV (cm/s): 28 ?ICA/CCA: 1.5 ?Plaque Structure: Echogenic ?Plaque Surface: Irregular ?%Stenosis: 16-49% ICA Distal, Left ?PSV (cm/s): 77 ?EDV (cm/s): 15 ?ICA/CCA: 1.2 CCA Distal, Left ?PSV (cm/s): 65 ?EDV (cm/s): 12 ?%Stenosis: Minimal CCA Proximal, Left ?PSV (cm/s): 116 ?EDV (cm/s): 9 External Carotid Artery, Left ?PSV (cm/s): 76 ?EDV (cm/s): 0 ?%Stenosis: <50% Vertebral, Left ?PSV (cm/s): 29 ?EDV (cm/s): 8 ?Direction of Flow: Antegrade Interpretation: RIGHT: There is irregular plaque in the proximal internal carotid artery causing <15% stenosis when compared to the more distal internal carotid artery. The bifurcation level is in the mid neck. No significant change compared to previous exam. LEFT: There is bulky irregular plaque in the proximal internal carotid artery causing 16-49% stenosis when compared to the more distal internal carotid artery. The bifurcation level is in the mid neck. No significant change compared to previous exam. Vertebral Artery Data: Patent vertebral arteries with normal antegrade Doppler waveforms and velocities bilaterally. Assessment and Plan: 82 yo M s/p R CEA for high grade asymptomatic R ICA stenosis 11/09/16, Carotid duplex with patent CARMEN stable LICA 16-49% stenosis. Continue ASA, Recommend stain. Patient with argument tyrone and seemed confused during today appointment . Accompanied by SO. Recommend evaluation. RTC one year with carotid stenosis. documented in this encounter Plan of Treatment Not on filedocumented as of this encounter Visit Diagnoses Diagnosis Bilateral carotid artery stenosis Occlusion and stenosis of multiple and b ilateral precerebral arteries without mention of cerebral infarction documented in this encounter Care Teams Wing Commander Relationship Specialty Start Date End Date Chau Arshad MD PCP - General Internal Medicine 08/21/16 [address] [place] [address] documented as of this encounter
--- OUTSIDE RECORDS SUMMARY | 2021-10-17 10:51 | XMS_ITS | Encounter Summary ---
:1935 Author Organization [place] [address] Care Team Providers Name Role Phone Chau Arshad MD Primary Care Provider Encounter Details Date Type Department Care Team Description 09/25/2016 Clinical Support Same Day at [facility] Bilateral carotid artery [facility] [place] [address] Social History Tobacco Use Types Packs/Day [...] Sign Reading Time Taken Comments Blood Pressure - - Pulse - - Temperature - - Respiratory Rate - - Oxygen Saturation 94% 09/25/2016 1:06 PM EDT Inhaled Oxygen Concentration - - Weight - - Height - - Body Mass Index - - documented in this encounter Progress Notes Emili Reyes RN - 09/25/2016 1:20 PM EDT PAT questionnaire reviewed with patient and while in Pre Admission testing. Pre-operative instruction booklet reviewed. Patient verbalizes a good understanding of all information reviewed. PLAN: Testing: Lab and EKG. Special medication instructions: Procedure date: Not booked. documented in this encounter Plan of Treatment Not on filedocumented as of this encounter Procedures Procedure Name Priority Date/Time Associated Diagnosis Comme nts EKG 12-LEAD Routine 09/25/2016 2:00 PM Bilateral carotid Resu lts for this EDT artery stenosis procedure ar bruce in the results section . documented in this encounter Results EKG 12 Lead (09/25/2016 2:00 PM EDT) Component Value Ref Range Test Analysis Performed Pathologis t Method Time At Signature Ventricular rate 72 BPM MUSE SYSTEM Atrial Rate 72 BPM MUSE SYSTEM P-R Interval 146 ms MUSE SYSTEM QRS Duration 84 ms MUSE SYSTEM Q-T Interval 332 ms MUSE SYSTEM QTC Calculated 363 ms MUSE SYSTEM (Bezet) Calculated P Piru 50 degrees MUSE SYSTEM Calculated R Piru 18 degrees MUSE SYSTEM Calculated T Piru -18 degrees MUSE SYSTEM INTERPRETATION Normal sinus rhythm with sinus arrhythmia MUSE SYSTEM Moderate voltage criteria for LVH, may be normal variant Inferior infarct , age undetermined Abnormal ECG When compared with ECG of 02-APR-2005 13:11, Inferior infarct is now Present Nonspecific T wave abnormality now evident in Inferior leads Nonspecific T wave abnormality, worse in Anterolateral leads Confirmed by MD Santos, Roger ([id number]) on 09/25/2016 3:02:35 PM Specimen Anatomical Collection [...] infarction documented in this encounter Care Teams Seismic Prospecting Observer Relationship Specialty Start Date End Date Chau Arshad MD PCP - General Internal Medicine 08/21/16 [address] [place] [address] documented as of this encounter
--- OUTSIDE RECORDS SUMMARY | 2021-10-17 10:51 | XMS_ITS | Encounter Summary ---
:1935 [place] [address] Care Team Providers Name Role Phone Chau Arshad MD Primary Care Provider Reason for Visit Auth/Cert Specialty Diagnoses / Procedures Referred By Contact Refer red To Contact Diagnoses Carotid stenosis, right right carotid stenosis UNKNOWN Procedures PRO THROMBOENDARTECTMY NECK, NECK INCIS @[email or web address], CAROTID, VERTEBRAL,SUBCLAVIAN W\WO PATCH GRAFT ([facility] ) Referral ID Status Reason Start Date Expiration Date Visits Requ ested Visits Authorized [id number] 1 1 Encounter Details Date Type Department Care Team Description 11/09/2016 Surgery Main Operating Room Lucille Saleem @[email or web address], [facility] MD Alison CAROTID, [facility] VERTEBRAL,SUBCLAVIAN [facility] DR Wallace\NELLY PATCH GRAFT ([facility] VASCULAR SURGERY ) [place] [address] [place] [address] [phone] (Wo rk) Social History Tobacco Use Types [...] Sign Reading Time Taken Comments Blood Pressure 166/91 11/09/2016 11:06 AM EDT Pulse 66 11/09/2016 11:06 AM EDT Temperature 36.6 ??C (97.9 ??F) 11/09/2016 11:06 AM EDT Respiratory Rate 18 11/09/2016 11:06 AM EDT Oxygen Saturation 100% 11/09/2016 11:06 AM EDT Inhaled Oxygen Concentration - - Weight 81.6 kg (180 lb) 11/09/2016 11:06 AM EDT Height 170.2 cm (5' 7) 11/09/2016 11:06 AM EDT Body Mass Index 29.41 11/09/2016 11:06 AM EDT documented in this encounter Discharge Summaries Lucas Kidd MD - 11/10/2016 10:08 AM EDT Inpatient - Discharge Summary Patient Name: Maximiliano oCx Patient Age: 81 y.o. Birthdate: 1935 Admit [...] or questions please call our office at [phone] ZOE Karimi, charge histotechnologist Nurse Clinician For issues on weeknights after 5pm and weekends please call [phone] and ask for the Vascular Fellow business support liaison. General Instructions None Future Appointments and Orders Future Appointments Provider Department Dept Phone 12/17/2016 10:00 AM Haley Brito [place] Vascular Lab [phone] 12/17/2016 11:15 AM Lucille Saleem MD Vascular Surgery [phone] Future Orders Complete By Expires Carotid Duplex, Unilateral [VAS2 Custom] 12/11/2016 (Approximate) 11/11/2017 Process Instructions: There is no in-house vascular crown and bridge dental lab technician available on weeknights (5pm-8am), weekends, or holidays. IF THIS IS A REQUEST FOR AN EMERGENT STUDY DURING THOSE HOURS, please have the senior provider responsible for the patient page the Vascular Surgery Fellow/Senior Resident business support liaison to discuss options. Scheduling Instructions: Questions: Laterality: Right Lower limb right segments: Other Is there a stent?: No Indication for study/signs & symptoms: s/p right carotid endarterectomy Question to be answered: patency Which DH location will this be performed?: [place] Discharge References/Attachments: Discharge References/Attachments None Electronically Signed [...] or questions please call our office at [phone] ZOE Karimi, charge histotechnologist Nurse Clinician For issues on weeknights after 5pm and weekends please call [phone] and ask for the Vascular Fellow business support liaison. documented in this encounter Medications at Time [...] Encouraging turns. Incision on right neck puffy. MD aware. Pt resting in bed. Call light [...] stable condition andrecovering well after surgery. - food runner grossly intact; denies headache - Pain well [...] Reyes MD - 11/09/2016 6:48 PM EDT [facility] Operative Note Patient Name: Maximiliano Cox : [id number] MR#: [id number] Case Date: 11/09/2016 Surgeon: Surgeon(s) and Role: * Lucille Saleem MD - Primary * Hari Reyes MD - Resident-Pharmacy Billing Adjudicator Preoperative diagnosis: Asymptomatic right carotid stenosis Postoperative [...] artery distally using Pott's scissors. Using a Lytle elevator, endarterectomy of the common carotid and [...] Operative Note Patient Name: Maximiliano Cox : [id number] MR#: [id number] Case Date: 11/09/2016 Surgeon: Surgeon(s) and Role: * Lucille Saleem MD - Primary * Hari Reyes MD - Resident-Pharmacy Billing Adjudicator Preoperative diagnosis: Asymptomatic right carotid stenosis Postoperative [...] Component Value Ref Test Analysis Performed At [facility] Range Method Time Signature VB Text Department: Vascular Surgery Lab VASCUBASE Report Patient: [id number] (MAXIMILIANO COX) CPT: 67783 ICD10: I65.21 Referring Physician: LUCILLE SALEEM ?? [...] Signature Glucose Lvl 96 65 - 199 [facility] mg/dL [facility] Comment: Diabetes: >=200 mg/dL plus symp toms BUN 41 (H) 10 - 20 mg/dL [facility] Creatinine 1.16 0.80 - 1.50 mg/dL [facility] Comment: Please note that the pediatric reference intervals supplied above were not validated at [facility]. Results from pediatri c patients should be interpreted in conjunction to the patient's age, height and muscle mass. Sodium 139 135 - 145 mmol/L [facility] Potassium 4.4 3.5 - 5.0 mmol/L [facility] Comment: Please note: ??Patients with WBC >100,00 0 may have falsely elevated Potassium levels. ??For accurate Potassium quantif ication in these patients send serum separator tube (gold top) for subsequent determinations. ??Contact the Clinical Chemistry Laboratory if there are any qu estions. Chloride 100 98 - 107 mmol/L [facility] CO2 25 22 - 31 mmol/L [facility] Anion Gap 14 5 - 15 mmol/L [facility] Calcium 10.5 8.5 - 10.5 mg/dL [facility] Estimated GFR >60 >=60 [facility] Comment: This estimated [...] the following links into your internet browser. [email or web address] Specimen Anatomical Collection Method Collection Time Receive d Time (Source) Location / / Volume Laterality Blood specimen 11/09/2016 10:32 7 (specimen) AM EDT 10:39 AM EDT Resulting Agency Comment Spec In Lab Lucille Saleem MD CHEMISTRY ORDERABLES Performing Organization Address City/State/[place] [address] (ABNORMAL) Hemogram (11/09/2016 10:32 AM EDT) Analysis Performed At Patho logist Time Signature WBC 8.3 4.0 - 9.5 [facility] x10(3)/[facility] LABORATORY RBC 5.50 4.58 - [facility] 5.54 [facility] x10(6)/[facility] LABORATORY Hemoglobin 16.6 (H) 13.7 - [facility] 16.5 gm/dL [facility] Hematocrit 49.1 (H) 40.5 - [place] [place] 48.5 % [facility] MCV 89.3 82.9 - [place] [place] 93.1 [facility] LABORATORY MCH 30.2 27.5 - [place] [place] 32.1 pg [facility] MCHC 33.8 32.0 - [place] 35.7 gm/dL [facility] Platelets 187 145 - 357 [facility] x10(3)/[facility] LABORATORY RDWSD 39.7 36.0 - [place] 45.0 [facility] LABORATORY RDWCV 12.1 11.4 - [place] [place] 13.8 % [facility] MPV 10.8 7.6 - 12.9 [facility] LABORATORY nRBC % Auto 0.0 % [facility] nRBC Abs Auto 0.000 0.000 - [place] [place] 0.000 [facility] x10(3)/[facility] LABORATORY Specimen Anatomical Collection Method Collection Time Receive d Time (Source) Location / / Volume Laterality Blood specimen 11/09/2016 10:32 7 (specimen) AM EDT 10:39 AM EDT Resulting Agency Comment Spec In Lab Lucille Saleem MD HEMATOLOGY ORDERABLES Performing Organization Address City/State/[place] [address] documented in this encounter Visit Diagnoses Diagnosis Bilateral carotid artery disease Unspecified disorders of arteries and ar terioles Bilateral carotid artery stenosis Occlusion and stenosis of multiple and b ilateral precerebral arteries without mention of cerebral infarction Carotid stenosis, right Occlusion and stenosis of carotid artery without mention of cerebral infarction Bilateral carotid [...] 81 mg, Oral, DAILY, First dose on 11/09/16 at 2045, Until Discontinued, Routine chlorthalidone (HYGROTEN) tablet 25 mg Given 11/10/2016 8:11 AM EDT 25 mg 25 mg, Oral, DAILY, First dose on Wed11/10/16 at 0900, Until Discontinued, Routine lidocaine (XYLOCAINE) 10 Given 11/09/2016 1:46 PM EDT 0.5 mLs 19- Surgical Site mg/mL (1 %) injection 3 mg 3 mg (0.3 mL), Subcutaneous, ONCE PRN, 1 dose, Starting on Wed11/09/16 at 1108, Until Wed11/09/16 at 1346, for discomfort with PIV insertion, Day of Surgery (Day of Procedure), Routine ondansetron (ZOFRAN) injection 4 mg 4 mg, Intravenous, EVERY 8 HOURS PRN, St arting on Wed11/09/16 at 2022, Until Wed11/10/16 at 1336, Nausea, May repeat times one in 30 min utes if ineffective ondansetron (ZOFRAN) tablet 4 mg 4 mg, Oral, EVERY 8 HOURS PRN, Starting on Wed11/09/16 at 2022, Until Wed11/10/16 at 1336, Nausea, Vomiting, If multiple antiemetics are ordered, use ondansetron first. PO Preferred. If patient unable to take PO, may give IV if ordered. May repeat times one in 45 minutes if ineffective. , Routi ne phenol 1.4% (CHLORASEPTIC) spray 1 spray 1 spray, Oral, EVERY 2 HOURS PRN, Starti ng on Wed11/09/16 at 2345, Until Wed11/10/16 at 1336, Irritation, For dry throat, STAT documented in this encounter Active and Recently Administered Medications Times are shown in EDT. Scheduled Medication Order 11/08/2016 11/09/2016 11/10/2016 aspirin EC tablet 81 mg 2126 (Not Given - Provider: Kamini Leblanc RN [...] 25 mg 0811 (Given - Provider: Riri Quintana, PAPI) 25 mg, Oral, DAILY, First dose on [...] Starks RN)1243 (New Bag - Provider: Oscar Tapia MD)1500 (New Bag - Provider: Oscar Tapia MD)1631 (Stopped - Provider: Buddy Ford CRNA) 1,000 mL, at 100 mL/hr, Intravenous, CON TINUOUS, Starting Wed11/09/16 at 1130, Until Wed11/09/16 at 2014, Day of Surgery (Day of Procedure) lactated [...] mg, Intravenous, EVERY 5 MIN PRN, Star tin Wed11/09/16 at 1654, Until Wed11/10/16 at 1336, High Blood Pressure, For SBP >160 and HR >70, Routine ondansetron (ZOFRAN) injection 4 mg(Linked Group 1) 4 mg, Intravenous, EVERY 8 HOURS PRN, St arting Wed11/09/16 at 202, Until Wed11/10/16 at 1336, Nausea, May repeat times one in 30 minutes if ineffective ondansetron (ZOFRAN) tablet 4 mg(Linked Group 1) 4 mg, Oral, EVERY 8 HOURS PRN, Starting Wed11/09/16 at 202, Until Wed11/10/16 at 1336, [...] EVERY 8 HOURS PRN, Starting Wed11/09/16 at 2021, Until Wed11/10/16 at 1336, Nausea, Vomiting
If multiple antiemetics are ordered, use ondansetron first. PO Preferred. If patient unable to take PO, may give I V if ordered. May repeat times one in 45 minutes if ineffective.
Routine Or ondansetron (ZOFRAN) injection 4 mgJump to med 4 mg, Intravenous, EVERY 8 [address] PRN, St arting Wed11/09/16 at 2021, Until Wed11/10/16 at 1336, Nausea
May repeat times one in 30 minutes if ineffective
documented in this encounter Care Teams Die Finisher Forging Relationship Specialty Start Date End Date Chau Arshad MD PCP - General Internal Medicine 08/21/16 [address] [place] [address] documented as of this encounter
--- OUTSIDE RECORDS SUMMARY | 2021-10-17 10:51 | XMS_ITS | Encounter Summary ---
:1935 Author Organization [facility] [place] [address] Care Team Providers Name Role Phone Chau Arshad MD Primary Care Provider Reason for Visit Consultation (Routine) - Closed Specialty Diagnoses / Procedures Referred By Referred To Contact Contact Endocrinology Diagnoses Primary hyperparathyroidism Chau Arshad, [facility] Endocrinology 3b [facility] [address] [place] [address] [place] [address] Phone: Phone: Referral ID Status Reason Start Date Expiration Date Visits V isits Requested Authorized [id number] Closed Consult, Test 07/18/2020 07/18/2021 6 [facility] PCP Updated and/or Approved Encounter Details Date Type Department Care Team Description 10/07/2020 Office Visit Endocrinology at [facility] Feliz Parra Hyperparathyroidism; [facility] MD [place] [address] [phone] [place], [place] [address] Social History Tobacco Use Types [...] ??F) 10/07/2020 10:38 AM EDT Respiratory Rate - - Oxygen Saturation - - Inhaled Oxygen Concentration - - Weight 82.6 kg (182 lb) 10/07/2020 10:38 AM EDT Height 170.2 cm (5' 7) 10/07/2020 10:38 AM EDT Body Mass Index 28.51 10/07/2020 10:38 AM EDT documented in this encounter Patient Instructions Patient InstructionsCrFeliz ott MD - 10/07/2020 10:45 AM EDT 1. Schedule DXA scan and bloodwork a [facility] 2. 24 hour urine collection : INSTRUCTIONS FOR 24 HOUR URINE COLLECTION The purpose of this test is to measure the total amount of either hormones or minerals that your body excretes into your urine within a 24 hour period. To do this, you need to collect all the urine that your body makes for 24 hours. 1. On the first day, when you wake up, note the time. Then go to the bathroom and urinate. This should be flushed down the toilet. It is not part of the collection. 2. On the first day, all subsequent urine voids need to be saved in the urine jug. Save the entire amount of each urine void. 3. When you go to sleep that night, if you happen to awaken throughout the night and supervisor tumblers, those urine voids must also be saved. 4. On the second morning, awaken at the same time as you did on the first morning and go to the bathroom and urinate. Keep this entire urine void. This is the final part of the collection. 5. After you have finished the urine collection, keep it cool until you bring it into the laboratory. documented in this encounter Progress Notes Feliz Vila MD - 10/07/2020 10:45 AM EDT Images from the original note were not included. Mr. Asim Cox is an 85 y.o. male who presents in consultation for chief complaint of hyperparathyroidism Referred by: Chau Arshad MD Acquisition, Review and Summation of Old Medical Records: former patient of Dr Kolby Han in this practice, last seen Mar 2017 (over 3 years ago). In my review I saw that patient was evaluated for left 1.6 cm mixed cyst/solid nodule which was discovered incidentally during workup for carotid endarterectomy. He was advised that the nodule did not need further workup given low suspicion for thyroid cancer. There is no mention of a parathyroid adenoma from that visit note HPI Patient presents with his today. They are here to discuss the evaluation and management of hypercalcemia. As far as the patient and his are aware, this was the first year that they had known about the blood calcium being high. He has a medical history notable for prior stroke (in 2017), carotid stenosis status post endarterectomy, dementia/memory loss, hypertension, thyroid nodule. Patient is tell me that he is mostly sedentary throughout the day. Today he was present in a wheelchair. They were not able to elaborate why he is not able to ambulate easily but it sounds like itis probably mostly related to 2 hip replacements that he has had in the past which limits his mobility. He also has significant gait instability and does fall periodically. He does not have any severe pain on a chronic basis in his legs or joints that I can tell. He does not have any chronic abdominalpain or nausea although he does have constipation that requires the use of pxpj-yfr-chubbjr medications to treat. He has never had a kidney stone. He has never broken a bone other than a few bones in his hands. He has never had a bone density scan. He notably has a large raised skin lesion on his left cota and is due to have it excised in the nearfuture. He does not take any calcium supplements. He does notably take chlorthalidone and has taken this since 2017. His blood pressure today was obviously lower than his typical baseline but he denies any lightheadedness. Past medical history: Patient Active Problem List Diagnosis Code ??? Altered mental status R41.82 ??? Vertigo R42 ??? Carotid artery disease I77.9 ??? Male erectile dysfunction N52.9 ??? Venous insufficiency of leg I87.2 ??? AK (actinic keratosis) L57.0 ??? Hypertension I10 ??? BPH (benign prostatic hyperplasia) N40.0 ??? 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 Hyperlipidemia E78.5 ??? OA (osteoarthritis) M19.90 ??? Carotid stenosis, right I65.21 Past Surgical History: Procedure Laterality Date ??? 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 Notable family medical history: There is no known history of hypercalcemia/hyperparathyroidism or pancreatic tumors or pituitary tumors. Review of Systems: As described above, otherwise is negative Current Outpatient Medications: ??? alfuzosin (UROXATRAL) 10 mg Tablet Sustained Release 24 hr, TAKE ONE TABLET BY MOUTH EVERY DAY AFTER THE SAME MEAL EACH DAY TO BE USED INSTEAD OF TAMSULOSIN, Disp: , Rfl: ??? clopidogreL (Plavix) 75 mg Tablet, TAKE ONE TABLET BY MOUTH EVERY DAY, Disp: , Rfl: ??? clotrimazole (LOTRIMIN) 1 % Cream, APPLY TO AFFECTED AREA S TWO TIMES A DAY FOR 14 DAYS, Disp: ,Rfl: ??? loteprednol (LOTEMAX) 0.5 % Drops, Suspension, INSTILL ONE DROP IN EACH EYE FOUR TIMES A DAY, Disp: , Rfl: ??? memantine (Namenda) 5 mg Tablet, TAKE ONE TABLET BY MOUTH TWICE A DAY, Disp: , Rfl: ??? polyethylene glycoL (Miralax) 17 gram/dose Powder, by NOT APPLICABLE route., Disp: , Rfl: ??? potassium chloride (MICRO-K) 10 mEq Capsule, Sustained Release, TAKE ONE CAPSULE BY MOUTH EVERY MORNING, Disp: , Rfl: ??? rosuvastatin (Crestor) 10 mg Tablet, TAKE ONE TABLET BY MOUTH EVERY DAY, Disp: , Rfl: ??? triamcinolone (KENALOG) 0.1 % Cream, APPLY TO AFFECTED AREA S TWO TIMES A DAY NEEDED FOR ITCHINESS, Disp: , Rfl: ??? FISH OIL-DHA-EPA ORAL, Take by mouth 2 times daily., Disp: , Rfl: ??? cholecalciferol, Vitamin D3, (Vitamin D3) 1,000 unit Tablet, Take 1,000 Units by mouth daily., Disp: , Rfl: ??? fluticasone propionate (FLONASE) 50 mcg/actuation [place], Suspension, 1 spray as needed for Rhinitis., Disp: , Rfl: ??? chlorthalidone (HYGROTEN) 25 mg Tablet, Take 25 mg by mouth daily., Disp: , Rfl: [...] Allergies Allergen Reactions ??? Clindamycin Physical Exam: BP 99/55 Pulse 64 Temp 36.2 ??C (97.2 ??F) Ht 170.2 cm (5' 7) Wt 82.6 kg (182 lb) BMI 28.51 kg/m?? General: pleasant, sitting comfortably in wheelchair, no distress Eyes: EOMI, no proptosis, no periorbital edema Mouth/Face: Wearing mask Neck: no supraclavicular fat pads, trachea midline Resp: breathing comfortably on room air, no audible stridor, normal respiratory effort MSK: No visible kyphosis or scoliosis, normal male musculature Neuro: no tremor, very hard of hearing Skin: no visible acanthosis, he has a 2 cm raised plaque with central ulceration on his left cota out amount of surrounding erythema no jaundice or pallor Extremities: Moving upper extremities normally, no visible clubbing or cyanosis psych: normal affect, alert and oriented to person/place/time Radiology Studies: Laboratory Data: Ref Range & Units 2 mo ago Intact PTH 19 - 88 pg/mL 156??High?? Resulting Agency [facility] Specimen Collected: 07/16/20 10:35 Last Resulted: 07/17/20 09:52 Received From: [facility] Result Received: 08/14/20 14:23 View Encounter ?? Received Information Reference Links Lab Handbook Assessment / Plan: 1) hypercalcemia: The very likely diagnosis is primary hyperparathyroidism. I think familial hypocalciuric hypercalcemia would be very unlikely given how high the PTH level is. Normally to firmly establish the diagnosisand rule out FHH, I would recommend a 24-hour urine calcium/creatinine to calculate a calcium clearance ratio. However the fact that he is on chlorthalidone would make this calculation inaccurate. I think the likelihood of primary hyperparathyroidism is so high that it is not necessary to confirm the diagnosis with absolute certainty Assuming that he does have primary hyperparathyroidism, he would meet at least 1 surgical criteria at present: GFR under 60. This recommendation is not strongly evidence-based. He is also having significant constipation but again it is not clear factors including his reduced need ambulate regularly. I did recommend that he go ahead and get a 24-hour urine calcium/creatinine test done to make sure that his urine calcium level is not very high. The chlorthalidone will lower the urine calcium level but I would want to make sure that it is not high regardless of that medication. I would also like for him to get a DEXA test done to assess whether there is any underlying osteoporosis. Given his age and other serious comorbidities I do not think that he is a surgical candidate for treatment of primary hyperparathyroidism. We did briefly discussed the possible utility of cinacalcet, medication that can suppress the release of PTH. Patient is associated with some problematic side effects including GI upset the patient would like to avoid this if at all possible. Overall, the patient and his would like to go with a more conservative approach as far as the management of the primary hyperparathyroidism. As long as he does not develop worsening symptomatic problems related to the/hypercalcemia this would be appropriate. If he has evidence of osteoporosis on his DEXA scan, I will discuss with him the treatment strategy with the medication might Prolia or bisphosphonate potentially both to treat the osteoporosis as well as help this. I did order some blood and urine testing to be done at his local hospital in the near future: Orders Placed This Encounter Procedures ??? DXA Central Spine, Hip, and/or Whole Body (Generic) ??? Creatinine ??? Albumin Level ??? Vitamin D, 25-Hydroxy ??? Phosphorus ??? PTH ??? Calcium, urine, 24 hour ??? Creatinine, urine, 24 hour ??? Calcium A note will be sent to the referring provider Return to clinic in 12 months It was a pleasure to be involved in the care of Asim Cox. If you have any questions about the management and treatment plan as outlined above, or if I can be of further assistance, please do not hesitate to contact me. Sincerely, Feliz Vila MD Plastic Surgeonproduct handler Endocrinology Section [facility] documented in this encounter Plan of Treatment Not on filedocumented as of this encounter Visit Diagnoses Diagnosis Hyperparathyroidism Hyperparathyroidism, unspecified Vitamin D deficiency Unspecified vitamin D deficiency documented in this encounter Care Teams Track Broom Operator Relationship Specialty Start Date End Date Chau Arshad MD PCP - General Internal Medicine 08/21/16 [address] [place] [address] documented as of this encounter
--- OUTSIDE RECORDS SUMMARY | 2021-10-17 10:51 | XMS_ITS | Encounter Summary ---
:1935 Author Organization [facility] [place] [address] Care Team Providers Name Role Phone Chau Arshad MD Primary Care Provider Encounter Details Date Type Department Care Team Description 05/01/2019 Orders Only Vascular Surgery at [facility] B ilateral carotid [facility] PRODUCT ENG[place] [address] Social History Tobacco Use Types Packs/Day Years [...] infarction documented in this encounter Care Teams System Admin Relationship Specialty Start Date End Date Chau Arshad MD PCP - General Internal Medicine 08/21/16 [address] [place] [address] documented as of this encounter
--- OUTSIDE RECORDS SUMMARY | 2021-10-17 10:51 | XMS_ITS | Encounter Summary ---
:1935 Author Organization [facility] [place] [address] Care Team Providers Name Role Phone Chau Arshad MD Primary Care Provider Reason for Visit Reason Comments Thyroid Nodule Consultation (Routine) - Closed Specialty Diagnoses / Procedures Referred By Contact Refer red To Contact Endocrinology Diagnoses 2cm left thyroid nodule Chau Arshad MD [facility] Endocrinology 3b [address] [place] [address] [place] [address] Fax: Referral ID Status Reason Start Date Expiration Date Visits V isits Requested Authorized [id number] Closed Consult, 01/31/2017 01/31/2018 1 1 [facility] Encounter Details Date Type Department Care Team Description 04/08/2017 Office Visit Endocrinology at [facility] C Kashif Han DO Thyroid nodule [facility] [place] [address] ENDOCRINOLOGY [place], [place] [address] (Wo rk) Social History Tobacco [...] Sign Reading Time Taken Comments Blood Pressure 155/84 04/08/2017 12:48 PM EST Pulse 78 04/08/2017 12:48 PM EST Temperature - - Respiratory Rate - - Oxygen Saturation - - Inhaled Oxygen Concentration - - Weight 84.7 kg (186 lb 12.8 oz) 04/08/2017 12:48 PM EST Height 170.2 cm (5' 7) 04/08/2017 12:48 PM EST Body Mass Index 29.26 04/08/2017 12:48 PM EST documented in this encounter Progress Notes Kashif Han, DO - 04/08/2017 1:00 PM EST Endocrinology Consult Patient Name: Asim Cox Date of : 1935 PCP: Chau Arshad MD HISTORY OF PRESENT ILLNESS: Asim Cox is a very pleasant 82 y.o. male who presents for evaluation of a thyroid nodule. The nodule was discovered incidentally during evaluation for carotid atherosclerosis. In October 2016 he underwent carotid endarterectomy on the right for greater than 80% stenosis. Uneventful recovery. Overall, he is doing well. He denies thyroid compressive symptoms. Denies voice changes, dysphagia, coughing or palpable neck masses. No personal or family history of thyroid disease. He has a fairly limited knowledge of his family medical history. He has never been on thyroid medication. Normal thyroid studies with his primary care physician. REVIEW OF SYSTEMS: as per HPI, all other systems reviewed and negative Patient Active Problem List Diagnosis Code ??? Altered mental status R41.82 ??? Vertigo R42 ??? Carotid artery disease I77.9 ??? Male erectile dysfunction N52.9 ??? Venous insufficiency of leg I87.2 ??? AK (actinic keratosis) L57.0 ??? Hypertension I10 ??? BPH (benign prostatic hyperplasia) N40.0 ??? 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 Hyperlipidemia E78.5 ??? OA (osteoarthritis) M19.90 ??? Carotid stenosis, right I65.21 Allergies Allergen Reactions ??? Clindamycin Current Outpatient Prescriptions on File Prior to Visit Medication Sig Dispense Refill ??? chlorthalidone (HYGROTEN) 25 mg Tablet Take 12.5 mg by mouth daily. ??? multivitamin with minerals Tablet Take 1 tablet by mouth daily. ??? aspirin 81 mg Tablet, Delayed Release (E.C.) Take 81 mg by mouth daily. ??? amoxicillin (AMOXIL) 500 mg Capsule Take 500 mg by mouth as needed (Take 4 capsules one hour prior to dental appointment). ??? lactobacillus rhamnosus, GG, (CULTURELLE) 10 billion cell Capsule Take 1 capsule by mouth as needed (take with antibiotics). ??? ibuprofen (ADVIL;MOTRIN) 200 mg Tablet Take 200 mg by mouth every 6 hours as needed for Pain. No current facility-administered medications on file prior to visit. Social History Social History ??? Marital status: Spouse name: N/A ??? Number of children: N/A ??? Years of education: N/A Social History Main Topics ??? Smoking status: Never Smoker ??? Smokeless tobacco: Never Used ??? Alcohol use No Comment: stopped drinking 30 years ago ??? Drug use: No ??? Sexual activity: Not Asked Other Topics Concern ??? None Social History Narrative PHYSICAL EXAM: BP 155/84 Pulse 78 Ht 170.2 cm (5' 7) Wt 84.7 kg (186 lb 12.8 oz) BMI 29.26 kg/m2 GENERAL: Well nourished, well hydrated, in no distress. SKIN: normal in texture and temperature EYES: no thyroid eye signs, DARLENE, cornea normal NECK: supple, no palpable nodule or goiter, no bruit, no tenderness, no lymphadenopathy, virtually substernal thyroid. CVS: S1 S2 heard, rhythm regular RS: clear breath sounds bilateral Thyroid ultrasound: Real-time images were obtained with a Cognea ultrasound machine and linear transducer. The left lobe is normal in echotexture and contains a 1.4 cm longitudinal ??1.6 cm AP ??1.6 cm transverse partially cystic benign appearing thyroid nodule. There is no internal vascularity. The majority greater than 50% of the lesion is cystic. The right lobe measures 1.7 cm AP ??1.8 cm transverse. The echotexture is normal. There are no thyroid nodules. I examined the lateral neck compartments and there is no evidence of abnormal lymphadenopathy. Impression: Mr. Cox is an 82-year-old male with atherosclerotic disease (status post endarterectomy) who present today for f/u of a incidentally discovered, small left-sided thyroid nodule. Sonographic pattern reveals a very low suspicion lesion as it is partially cystic. Therefore this lesion carries has less than 3% risk of malignancy. There is no further evaluation necessary given the sonographic features and his age. Recommendations: -Endocrine follow-up on an as-needed basis only We have reviewed our plan outlined above with the patient, and patient verbalized understanding. Allquestions were answered and most of the time was spent on counseling. Thank you for this consult, please do not hesitate to contact me with any questions. Kashif Han DO, [place] State Epidemiologistvehicle monitor technician Department of Medicine Section of Endocrinology [facility] cc: Chau Arshad MD documented in this encounter Plan of Treatment Not on filedocumented as of this encounter Visit Diagnoses Diagnosis Thyroid nodule Nontoxic uninodular goiter documented in this encounter Care Teams Roll Coating Machine Operator Relationship Specialty Start Date End Date Chau Arshad MD PCP - General Internal Medicine 08/21/16 [address] [place] [address] documented as of this encounter
--- OUTSIDE RECORDS SUMMARY | 2021-10-17 10:51 | XMS_ITS | Encounter Summary ---
:1935 Author Organization [facility] [place] [address] Care Team Providers Name Role Phone Chau Arshad MD Primary Care Provider Encounter Details Date Type Department Care Team Description 09/28/2016 Orders Only Vascular Surgery at [facility] carotid [facility] A, [place] [address] Social History Tobacco Use Types Packs/Day [...] on filedocumented as of this encounter Results (ABNORMAL) Basic Metabolic Panel (non-fasting) (11/09/2016 10:32 AM EDT) athologist Signature Glucose Lvl 96 65 - 199 [facility] mg/dL [facility] Comment: Diabetes: >=200 mg/dL plus symp toms BUN 41 (H) 10 - 20 mg/dL [facility] Creatinine 1.16 0.80 - 1.50 mg/dL [facility] Comment: Please note that the pediatric reference intervals supplied above were not validated at [facility]. Results from pediatri c patients should be interpreted in conjunction to the patient's age, height and muscle mass. Sodium 139 135 - 145 mmol/L [facility] Potassium 4.4 3.5 - 5.0 mmol/L [facility] Comment: Please note: ??Patients with [...] Anion Gap 14 5 - 15 mmol/L [facility] Calcium 10.5 8.5 - 10.5 mg/dL [facility] Estimated GFR >60 >=60 [facility] Comment: This estimated GFR (eGFR) [...] the following links into your internet browser. [email or web address] Specimen Anatomical Collection Method Collection Time Receive d Time (Source) Location / / Volume Laterality Blood specimen 11/09/2016 10:32 7 (specimen) AM EDT 10:39 AM EDT Resulting Agency Comment Spec In Lab Lucille Rivera MD CHEMISTRY ORDERABLES Performing Organization Address City/State/[place] [address] (ABNORMAL) Hemogram (11/09/2016 10:32 AM EDT) Analysis Performed At Patho logist Time Signature WBC 8.3 4.0 - 9.5 [facility] x10(3)/[facility] LABORATORY RBC 5.50 4.58 - [facility] 5.[address] [facility] x10(6)/[facility] LABORATORY Hemoglobin 16.6 (H) 13.7 - [place] 16.5 gm/dL [facility] Hematocrit 49.1 (H) 40.5 - [place] 48.5 % [facility] MCV 89.3 82.9 - [place] 93.1 [facility] LABORATORY MCH 30.2 27.5 - [place] 32.1 pg [facility] MCHC 33.8 32.0 - [place] 35.7 gm/dL [facility] Platelets 187 145 - 357 [facility] x10(3)/[facility] LABORATORY RDWSD 39.7 36.0 - [place] 45.0 [facility] LABORATORY RDWCV 12.1 11.4 - [facility] 13.8 % [facility] MPV 10.8 7.6 - 12.9 [facility] LABORATORY nRBC % Auto 0.0 % [facility] LABORATORY nRBC Abs Auto 0.000 0.000 - [facility] 0.[address] [facility] x10(3)/[facility] LABORATORY Specimen Anatomical Collection Method Collection Time Receive d Time (Source) Location / / Volume Laterality Blood specimen 11/09/2016 10:32 7 (specimen) AM EDT 10:39 AM EDT Resulting Agency Comment Spec In Lab Lucille Rivera MD HEMATOLOGY ORDERABLES Performing Organization Address City/State/[place] [address] documented in this encounter Visit Diagnoses Diagnosis Bilateral carotid artery disease Unspecified disorders of arteries and ar terioles documented in this encounter Care Teams Inventory Clerk Relationship Specialty Start Date End Date Chau Arshad MD PCP - General Internal Medicine 08/21/16 [address] [place] [address] documented as of this encounter
== END ==
PROVIDERS: PCP Internal Medicine; Visit Provider Urology
DX: R14.0 Abdominal distension (gaseous) (principal); N40.1 Benign prostatic hyperplasia with lower urinary tract symptoms; R35.0 Frequency of micturition; R35.1 Nocturia
CPT/HCPCS: 51798; 99213; 74018

== ENCOUNTER 2021-11-27 13:34 | Outpatient (REF) | payer MEDICARE, SELFPAY ==
[2021-11-27 15:49] LABS: Abs Immature Grans 0.02 10^3/uL (0.0-0.06); Absolute Basophil Count 0.02 10^3/uL (0.0-0.2); Absolute Eosinophil Count 0.17 10^3/uL (0.0-0.7); Absolute Lymphocyte Count 1.36 10^3/uL (1.2-3.4); Absolute Monocyte Count 0.69 10^3/uL (0.1-0.8); Absolute Neutrophil Count 4.54 10^3/uL (1.2-6.7); Basophils % 0.3; Eosinophils % 2.5; HCT 45.1 % (40.0-50.0); Immature Grans % 0.3; MCH 30.7 pg (27.0-33.0); MCHC 33.3 % (32.0-36.0); MCV 92 fL (80-95); MPV 11.3 fL (8.0-11.0); Monocytes % 10.1; Neutrophils % 66.8; Platelet Count 170 10^3/uL (130-400); RBC 4.88 10^6/uL (4.36-5.78); RDW 11.9 % (11.8-14.1); RDW-SD 40.4 fL
[2021-11-27 17:03] LABS: ALT 27 U/L (16-63); AST 26 U/L (15-37); Alkaline Phosphatase 75 U/L (46-116); Anion Gap 12.3 mmol/L (3-11); BUN 28 mg/dL (7-18); Bilirubin, Total 0.6 mg/dL (0.2-1.0); CO2 22.7 mmol/L (21.0-32.0); CREATININE 1.4 mg/dL (0.70-1.30); Calcium 10.2 mg/dL (8.5-10.1); Chloride 106 mmol/L (98-107); Estimated GFR 48.16 (mL/min/1.73m2); Glucose 105 mg/dL (74-106); Potassium 4.5 mmol/L (3.5-5.1); Sodium 141 mmol/L (136-145); Total Protein 7.2 g/dL (6.4-8.2); Vitamin B12 235 pg/mL (193-986)
[2021-11-28 14:01] LABS: Albumin 62.4 % (55.8-66.1); Albumin g/dL 4.2 g/dL (3.6-5.2); Total Protein 6.8 g/dL (6.3-8.2)
== END 2021-11-27 13:35 | disposition home or self-care (01) ==
LOC: NCHCN 13:34
PROVIDERS: PCP Internal Medicine; Visit Provider Internal Medicine
DX: R68.89 Other general symptoms and signs (principal); E21.0 Primary hyperparathyroidism; K59.09 Other constipation; Z86.69 Personal history of other diseases of the nervous system and sense organs; R53.83 Other fatigue
CPT/HCPCS: 80053; 82607; 84165; 85025